=== PATIENT | female | born 1980 | race African-American/Black ===

== ENCOUNTER 2024-02-06 04:57 | Outpatient (CLI) | payer OTHER, SELFPAY ==
[2024-02-06 15:26] LABS: Abs Immature Grans 0.03 10^3/uL (0.0-0.06); Absolute Basophil Count 0.06 10^3/uL (0.0-0.2); Absolute Eosinophil Count 0.11 10^3/uL (0.0-0.7); Absolute Lymphocyte Count 2.96 10^3/uL (1.2-3.4); Absolute Monocyte Count 0.67 10^3/uL (0.1-0.8); Absolute Neutrophil Count 5.95 10^3/uL (1.2-6.7); Basophils % 0.6; Eosinophils % 1.1; HCT 34.3 % (36.0-46.0); HGB 10.5 g/dL (11.2-15.7); Immature Grans % 0.3; Lymphocytes % 30.3; MCH 22.9 pg (27.0-33.0); MCHC 30.6 % (32.0-36.0); MCV 75 fL (80-95); MPV 10.6 fL (8.0-11.0); Monocytes % 6.9; Neutrophils % 60.8; Platelet Count 395 10^3/uL (130-400); RBC 4.59 10^6/uL (3.93-5.22); WBC 9.78 10^3/uL (4.4-10.8)
[2024-02-06 15:49] LABS: Diff Comment RBC Morph Reviewed; Microcytosis 1+
[2024-02-06 16:07] LABS: D-Dimer 1799 ng/mlFEU (<500)
== END 2024-02-06 04:58 | disposition home or self-care (01) ==
LOC: LBO 04:57
PROVIDERS: PCP Nurse Practitioner Family; Visit Provider Physician Assistant
DX: R06.02 Shortness of breath (principal)
CPT/HCPCS: 36415; 85025; 85379

== ENCOUNTER → 2024-02-06 21:32 | Outpatient (CLI) | payer OTHER, SELFPAY ==
--- NOTE | 2024-02-06 15:15 | DI.RAD_ITS ---
Exam(s) XR CHEST 2V PA LATERAL EXAM: XR CHEST 2V PA LATERAL CLINICAL HISTORY: SOB, cough R06.02 TECHNIQUE: 2D digital imaging was performed. Two views. COMPARISON: No exams were available for comparison FINDINGS: Exam is limited by suboptimal penetration and poor pulmonary inflation, particularly on the lateral view. HEART: Enlarged Aorta: Not dilated. PULMONARY VASCULATURE: Normal. LUNGS: Mildly increased interstitial markings may indicate mild pulmonary edema. PLEURAL SPACE: No pleural effusion or pneumothorax. BONE:Unremarkable for age. Soft tissues: Unremarkable. IMPRESSION: Cardiomegaly. Mild increased interstitial markings could indicate CHF. DATA REPOSITORY: RADIATION DOSE DELIVERED:
== END ==
PROVIDERS: PCP Nurse Practitioner Family; Visit Provider Physician Assistant
DX: R06.02 Shortness of breath (principal); R05.8 Other specified cough; I51.7 Cardiomegaly; R91.8 Other nonspecific abnormal finding of lung field
CPT/HCPCS: 71046

== ENCOUNTER → 2024-02-07 09:54 | Outpatient (CLI) | payer OTHER, SELFPAY ==
--- NOTE | 2024-02-07 09:30 | DI.CT_ITS ---
Exam(s) CT CHEST PE CTA EXAM: CT CHEST PE CTA CLINICAL HISTORY: R06.02 SOB, elevated Ddimer. TECHNIQUE: Imaging Protocol: Axial CT angiography was performed with multi-slice acquisition and mu lti-planar and/or 3D reconstructions. CONTRAST MATERIAL: Intravenous: Omnipaque 350 contrast volume:100 mL COMPARISON: CR XR CHEST 2V PA LATERAL from 02/06/2024 FINDINGS: Tracheobronchial tree: Patent where visualized. Pulmonary parenchyma: There are multifocal ground-glass infiltrates most marked in the right upper lo be and the left lower lobe. No architectural distortion. Pulmonary Arteries: No evidence of filling defect to suggest pulmonary emboli. Mediastinum and Zuly: No dominant adenopathy or fluid collection. The esophagus is unremarkable. Visualized thyroid gland: Unremarkable. Pleura: No effusion or pneumothorax. Heart: Cardiomegaly. No coronary artery calcifications are seen. No pericardial effusion. Aorta: Thoracic aorta non-dilated. Upper abdomen: Cholelithiasis. No biliary ductal dilatation. The stone measures 2.3 cm. Soft tissues: Unremarkable. Bones: Within normal limits for the patient's age. IMPRESSION: 1. There is no evidence of a pulmonary embolism or thoracic aortic aneurysm. 2. Multifocal ground-glass infiltrates. This may represent an inflammatory/infectious process includ ing atypical infection such as COVID-19. 3. Cardiomegaly. 4. Cholelithiasis. No biliary ductal dilatation. RADIATION DOSE DELIVERED: Total DLP DATA REPOSITORY: All CT scans at this facility are submitted to the National Radiology Data Registry (NRDR) Dose Index Registry (DIR) with the [employer] (ACR). RADIATION OPTIMIZATION: All CT scans at this facility use at least one of these dose optimization te chniques: automated exposure control; mA and/or kV adjustment per patient size (includes targeted exa ms where dose is matched to clinical indication); or iterative reconstruction.
[2024-02-07 11:35] LABS: CREATININE 0.9 mg/dL (0.55-1.02); Estimated GFR 81.35 (mL/min/1.73m2)
[2024-02-07] MEDS: Omnipaque 350 MG/ML 100 ML BTL IJ (11:53)
--- NOTE | 2024-02-07 13:00 | DI.US_ITS ---
Exam(s) US EXTREMITY VENOUS BI EXAM: US EXTREMITY VENOUS BI CLINICAL HISTORY: elevated d dimer, shortness of breath, R06.02. TECHNIQUE: Bilateral lower extremity venous ultrasound performed using grayscale, color-flow, and sp ectral Doppler analysis. COMPARISON: No exams were available for comparison FINDINGS: The right common femoral, femoral and popliteal veins demonstrate normal compressibility, augmentatio n, and color Doppler. The posterior tibial and peroneal veins are patent. The saphenofemoral junctio n is unremarkable. There is no evidence of a Williamson's cyst. The soft tissues are unremarkable. The left common femoral, femoral and popliteal veins demonstrate normal compressibility, augmentation , and color Doppler. The posterior tibial and peroneal veins are patent. The saphenofemoral junction is unremarkable. There is no evidence of a Williamson's cyst. The soft tissues are unremarkable. IMPRESSION: 1. No evidence of a right lower extremity DVT. 2. No evidence of a left lower extremity DVT. DATA REPOSITORY:
[2024-02-11 13:44] LABS: TB Interpretation Negative (Negative)
== END ==
PROVIDERS: PCP Nurse Practitioner Family; Visit Provider Physician Assistant
DX: R06.02 Shortness of breath (principal); R79.1 Abnormal coagulation profile; R91.8 Other nonspecific abnormal finding of lung field; J18.9 Pneumonia, unspecified organism; I51.7 Cardiomegaly; K80.20 Calculus of gallbladder without cholecystitis without obstruction; Z11.1 Encounter for screening for respiratory tuberculosis; Z01.812 Encounter for preprocedural laboratory examination
CPT/HCPCS: 36415; 71275; 82565; 86480; 93970; J3490

== ENCOUNTER → 2024-02-11 01:44 | Outpatient (CLI) | payer OTHER, SELFPAY ==
--- NOTE | 2024-02-11 07:30 | DI.US_ITS ---
APPROVED REPORT EXAM: Comprehensive 2D, Doppler, and color-flow Echocardiogram Patient Location: Out-Patient [place] Technician: Jody Rice RDCS (AE) Indications: SOB. Murmur, pneumonia Other Information Study Quality: Adequate Conclusion Moderately dilated left ventricle. There is severe LV systolic dysfunction. EF is <25% with global hy pokinesis Normal right ventricular size and function The left atrium is moderately dilated. Right atrium is normal in sizw There are no structural valvular abnormalities. Trace aortic regurgitation. Mild mitral regurgitation Wall motion Left Ventricle Left ventricle is moderately dilated. Left ventricular systolic function is severely decreased. There is normal left ventricular wall thickness. There is global hypokinesis of the left ventricle. There is no ventricular septal defect visualized. LVEF is 21%. Right Ventricle Right ventricle is grossly normal in size. Right ventricular systolic function is grossly normal. Atria Left atrium is moderately dilated. The right atrium size is normal. The interatrial septum is intact with no evidence for an atrial septal defect. Aortic Valve The aortic valve is normal in structure. Aortic valve is trileaflet. There is no aortic valvular sten osis. Trace aortic regurgitation. Mitral Valve The mitral valve is normal in structure. No evidence of mitral valve stenosis. Mild mitral regurgita tion. Tricuspid Valve The tricuspid valve is normal in structure. There is no tricuspid valve stenosis. Trace to mild tricu spid regurgitation. Unable to assess PA pressure. Pulmonic Valve The pulmonary valve is normal in structure. There is no pulmonic valvular stenosis. Trace to mild pul cheo regurgitation. Great Vessels The aortic root is normal in size. The ascending aorta is normal. Aortic arch is normal in caliber. I VC is normal in size and collapses >50% with inspiration. Pericardium There is no pericardial effusion. 2D Dimensions IVSD d PLAX 0.87 cm F: 0.6-1.0 Ao Root d 2.97 cm F: 2.7 - 3.3 LVPW d PLAX 0.85 cm F: 0.6 - 1.0 Ao Asc Diam d 3.34 cm F: 2.3 - 3.1 LVID d PLAX 6.42 cm F: 3.8 - 5.2 LVDs 5.82 cm F: 2.2 - 3.5 LV EF Teichholz 20.1 % FS 9.36 % LV EDV (Teich) 210.0 mL LV ESV (Teich) 167.8 mL M-Mode TAPSE 2.00 cm (M/F) >1.7 Auto EF LV EDV A4C 183.9 mL LV EDV A2C 184.9 mL LV EDV BP 189.6 mL LV ESV A4C 147.0 mL LV ESV A2C 145.1 mL LV ESV BP 150.5 mL LVEF(%) A4C 20.0 % LVEF(%) A2C 21.6 % LVEF(%) BP 20.6 % LV SV A4C 36.8 ml LV SV A2C 39.9 ml LV SV BP 39.1 ml LV CO A4C 3.7 L/min LV CO A2C 3.9 L/min LV CO BP 3.8 L/min HR A4C 100.56 BPM HR A2C 98.10 BPM LV EDV Index (BP) LV Strain Long Pk Overal Avg (s) 5.77 LA Volume LA Length A4C 6.5 cm LA Length A2C 6.3 cm LA Area A4C s 28.17 cm2 LA Area A2C s 23.08 cm2 LA Vol A4C A-L 103.73 mL LA Vol A2C A-L 72.18 mL LA Vol Biplane A-L 88.1 mL LA Vol/BSA A4C A-L LA Vol/BSA A2C A-L LA Vol/BSA BP A-L 42.8 mL/m2 LA Vol A4C MOD 97.4 mL LA Vol A2C MOD 66.8 mL LA Vol BP MOD 81.9 mL RA Volume RA Area A4C 14.7 cm2 RA ESV A4C (A-L) 36.2mL RA Vol/BSA A4C A-L RA Length A4C 5.1 cm RA ESV A4C (MOD) 37.2mL LV Diastology MV E' lateral 0.053 (>0.1 m/s) Aortic Valve AoV Vmax 1.02 m/s LVOT Vmax 0.92 m/s AoV Peak Grad 4.2 mmHg LVOT Peak Grad 3.4 mmHg AoV Area (Vmax) 2.83 cm2 LVOT VTI 0.141 m AoV VTI 0.181 m LVOT Mean Grad 2.3 mmHg AoV Mean Marco. 0.77 m/s LVOT SV 44.39 mL AoV Mean Grad 2.6 mmHg LVOT Diam s 1.98 cm AoV Area (VTI) 2.45 cm2 Velocity Ratio 0.90 Mitral Valve MV Vmax TIPS 1.11 m/s MR Vmax 4.53 m/s MV Mean Grad 1.9 (<2mmHg) MR VTI 1.354 m MV VTI 0.229 m MR Peak Grad 81.9 mmHg MR Mean Grad 61.5 mmHg Pulmonary Valve PV Vmax 1.12 (0.5-1.5 m/s) RVOT Vmax 0.49 m/s PV Peak Grad 5.1 mmHg RVOT Peak Gr. 1.0 mmHg PV Mean Marco 0.84 m/s RVOT VTI 0.100 m PV Mean Grad 3.0 mmHg RVOT Mean Gr. 0.5 mmHg Tricuspid Valve TV S' 0.14 m/s
== END ==
PROVIDERS: PCP Nurse Practitioner Family; Visit Provider Physician Assistant
DX: R01.1 Cardiac murmur, unspecified (principal)
CPT/HCPCS: 93306

== ENCOUNTER 2024-02-15 07:09 | Outpatient (CLI) | payer OTHER, SELFPAY ==
--- NOTE | 2024-02-15 07:00 | RT.EKG_ITS ---
APPROVED REPORT Exam: Resting ECG Reason for Exam: EF 25% Patient Location: O HR:102 bpm ECG Measurements Heart Rate 102 AXIS OK 202 P 28 QRSd 98 QRS -10 QT 336 T 138 QTc 438 Conclusion Sinus tachycardia...rate> 99 Probable left atrial enlargement...P >50mS, <-0.10mV V1 Left ventricular hypertrophy with repolarization abnormalities
== END 2024-02-15 07:10 | disposition home or self-care (01) ==
LOC: DI.CM 07:10
PROVIDERS: PCP Nurse Practitioner Family; Visit Provider Nurse Practitioner Family
DX: R94.30 Abnormal result of cardiovascular function study, unspecified (principal)
CPT/HCPCS: 93010

== ENCOUNTER 2024-02-15 07:53 | Outpatient (CLI) | payer OTHER, SELFPAY ==
[2024-02-15 12:22] LABS: Abs Immature Grans 0.03 10^3/uL (0.0-0.06); Absolute Basophil Count 0.06 10^3/uL (0.0-0.2); Absolute Eosinophil Count 0.09 10^3/uL (0.0-0.7); Absolute Lymphocyte Count 1.59 10^3/uL (1.2-3.4); Absolute Monocyte Count 0.52 10^3/uL (0.1-0.8); Absolute Neutrophil Count 6.59 10^3/uL (1.2-6.7); Basophils % 0.7; HCT 37.3 % (36.0-46.0); HGB 11.3 g/dL (11.2-15.7); Immature Grans % 0.3; Lymphocytes % 17.9; MCH 22.8 pg (27.0-33.0); MCHC 30.3 % (32.0-36.0); MCV 75 fL (80-95); MPV 11.4 fL (8.0-11.0); Monocytes % 5.9; Neutrophils % 74.2; Platelet Count 420 10^3/uL (130-400); RBC 4.96 10^6/uL (3.93-5.22); RDW 17.5 % (11.7-14.6); RDW-SD 46.9 fL; Reticulocyte 1.2 % (0.5-2.4); WBC 8.88 10^3/uL (4.4-10.8)
[2024-02-15 12:45] LABS: Iron 44 ug/dL (50-170); Total Iron Binding Capacity 433 ug/dL (250-450)
[2024-02-15 12:55] LABS: Hemoglobin A1C 5.9 % (<5.7)
[2024-02-15 13:03] LABS: ALT 22 U/L (14-59); AST 15 U/L (15-37); Albumin 3.3 g/dL (3.4-5.0); Alkaline Phosphatase 101 U/L (46-116); Anion Gap 9.9 mmol/L (3-11); BUN 6 mg/dL (7-18); Bilirubin, Total 0.4 mg/dL (0.2-1.0); CO2 29.1 mmol/L (21.0-32.0); Calculated LDL 95 mg/dL (<100); Chloride 105 mmol/L (98-107); Cholesterol 157 mg/dL (<200); Estimated GFR 71.69 (mL/min/1.73m2); Ferritin 22 ng/mL (8-252); Folate 18.1 ng/mL (8.6-20.0); Glucose 96 mg/dL (74-106); HDL Cholesterol 47 mg/dL (40-60); Potassium 3.1 mmol/L (3.5-5.1); Sodium 144 mmol/L (136-145); TSH (W/Ref FT4) 3.39 uIU/mL (0.36-3.74); Total Protein 7.4 g/dL (6.4-8.2); Triglyceride 76 mg/dL (<150); Vitamin B12 413 pg/mL (193-986)
[2024-02-15 13:26] LABS: NT-proBNP 858 pg/mL (<300)
[2024-02-16 09:30] LABS: Hepatitis C Ab w Rflx HCV PCR Negative (Negative)
[2024-02-18 08:37] LABS: Transferrin 322 mg/dL (201-352)
== END 2024-02-15 07:54 | disposition home or self-care (01) ==
LOC: LOS 07:54
PROVIDERS: PCP Nurse Practitioner Family; Referring Provider Nurse Practitioner Family; Visit Provider Nurse Practitioner Family
DX: I50.20 Unspecified systolic (congestive) heart failure (principal); D64.9 Anemia, unspecified; Z11.59 Encounter for screening for other viral diseases
CPT/HCPCS: 36415; 80053; 80061; 86803; 82607; 82728; 82746; 83036; 83540; 83550; 83880; 84443; 84466; 85025; 85045

== ENCOUNTER → 2024-02-18 00:47 | Outpatient (CLI) | payer OTHER, SELFPAY ==
--- NOTE | 2024-02-18 07:30 | DI.NM_ITS ---
APPROVED REPORT Exam: Pharmacologic Patient Location: Out-Patient Room/Bed: Stress Nurse: Linsey Ayon RN Ordering Provider:MARIZOL RICHARDSYoko, Contact Number: [phone] BMI: 43.07 Baseline Rhythm: Sinus Tachycardia Comment: PVCs Indications: new heart failure Medical History Medical History: HF EF21%, HTN, anemia, obesity Cardiac Medications: Losartan, furosemide, metoprolol succ Allergies: Doxycycline Cardiac Risk Factors: Family Hx, HTN, Obesity, former smoker Previous Cardiac Procedures: None Pretest Chest Pain Characteristics: None Exercise History: Physically active Physical Disabilities: None Lung Sounds: Clear to auscultation Heart Sounds: Regular, Tachycardia Stress Test Details Test: Pharmacologic stress was paired with low level exercise. Nuclear Acquisition: Rest Tc-99m/Stress Tc-99m 1 day Rest Isotope: Tc-99m Sestamibi. Dose: 12 Date: 02/18/2024 Injection Time: 0915 Stress Isotope: Tc-99m Sestamibi. Dose: 36 Date: 02/18/2024 Injection Time: 1112 HR Resting HR Supine: 102 bpm Max Heart Rate (APMHR): 177 bpm Resting HR Standin bpm Target HR (85% APMHR): 150 bpm Max HR Achieved: 136 bpm % of APMHR: 77 Recovery HR: 103 bpm BP Resting BP Supine: 130/90 mmHg Resting BP Standin/98 mmHg Max BP: 144/74 mmHg Recovery BP: 134/80 mmHg ECG Resting ECG: Sinus Tachycardia Ectopy: PVCs Stress ECG: Sinus Tachycardia ST Change: No significant ST segment changes noted Arrhythmia: VPC's Recovery ECG: Sinus Tachycardia Recovery ST Change: No significant ST segment changes noted Recovery Arrhythmia: VPC Clinical Rate Pressure Product: 63085 Stress ECG Conclusion 1. Resting EKG showed nondiagnostic ST abnormalities 2. Patient underwent testing using pharmacologic stress with regadenosan 3. Peak heart rate was 77% of predicted for age 4. The electrocardiographic portion of the test was nondiagnostic 5. See MPI report Stress Test Summary STAGE HR BP SpO2 Symptoms NOTES Supine 102 130/90 98 Standing 103 128/98 98 1 min post Lexiscan injection 136 144/74 94 mild SOB 3 min post Lexiscan injection 115 130/98 99 SOB resolved 6 min post Lexiscan injection 103 134/80 98 Pharmacological test was paired with low level exercise, patient took metoprolol succ as ordered. Exe rcise at 1.4MPH 0% grade, lexiscan administered at 2:09 and exercise stopped due to artifact and inab ility to read 12 lead. Experienced mild SOB that resolved within 3 minutes after lexiscan administrat ion. MPI Conclusion Myocardial perfusion is normal. There is no ischemia or evidence of prior infarction EF 19% with global hypokinesis Radiologist Interpretation Radiologist agrees with Manager Strategic Development's Interpretation. Radiologist Interpretation by: Tim Velazquez MD Interpretation Date/Time: 02/18/2024 17:53:31
[2024-02-18] MEDS: Regadenoson 0.4 MG/5 ML SYR IVP (10:50)
== END ==
PROVIDERS: PCP Nurse Practitioner Family; Visit Provider Nurse Practitioner Family
DX: I50.20 Unspecified systolic (congestive) heart failure (principal)
CPT/HCPCS: 78452; 93017; J2785

== ENCOUNTER 2024-02-23 11:19 | Outpatient (REF) | payer OTHER, SELFPAY ==
[2024-02-23 15:34] LABS: Anion Gap 8.3 mmol/L (3-11); BUN 12 mg/dL (7-18); CO2 29.7 mmol/L (21.0-32.0); CREATININE 0.9 mg/dL (0.55-1.02); Calcium 8.7 mg/dL (8.5-10.1); Chloride 106 mmol/L (98-107); Estimated GFR 81.35 (mL/min/1.73m2); Glucose 91 mg/dL (74-106); Magnesium 2.1 mg/dL (1.8-2.4); NT-proBNP 1843 pg/mL (<300); PHOSPHORUS 4.3 mg/dL (2.6-4.7); Potassium 3.7 mmol/L (3.5-5.1); Sodium 144 mmol/L (136-145)
== END 2024-02-23 11:20 | disposition home or self-care (01) ==
LOC: LBN 11:19
PROVIDERS: PCP Nurse Practitioner Family; Visit Provider Nurse Practitioner Family
DX: I50.20 Unspecified systolic (congestive) heart failure (principal); R05.1 Acute cough; I10 Essential (primary) hypertension
CPT/HCPCS: 80048; 83735; 83880; 84100

== ENCOUNTER → 2024-02-23 11:39 | Outpatient (REF) | payer OTHER, SELFPAY ==
--- NOTE | 2024-02-23 11:30 | DI.RAD_ITS ---
Exam(s) XR CHEST 2V PA LATERAL EXAM: XR CHEST 2V PA LATERAL CLINICAL HISTORY: evaluate pathology for sob TECHNIQUE: 2D digital imaging was performed of the chest. Two images were obtained. PA and lateral views were obtained. COMPARISON: CR XR CHEST 2V PA LATERAL from 02/06/2024 FINDINGS: MEDIASTINUM: Normal. HEART: Stable cardiomegaly. PULMONARY VASCULATURE: Normal. LUNGS: There are increased lung markings seen right at the midportion of the right hemidiaphragm rais ing the question of a developing pneumonia. PLEURAL SPACE: No pleural effusion or pneumothorax. BONE:Within normal limits for the patient's age. OTHER FINDINGS:Normal. IMPRESSION: Question of a right basilar infiltrate. DATA REPOSITORY: RADIATION DOSE DELIVERED:
--- NOTE | 2024-02-23 12:17 | DI.VRAD_ITS ---
PROCEDURE INFORMATION: Exam: XR Chest Exam date and time: 02/23/2024 11:46 AM Age: 43 years old Clinical indication: Cough TECHNIQUE: Imaging protocol: Radiologic exam of the chest. Views: 2 views. COMPARISON: CT CHEST PE CTA 02/07/2024 11:46 AM FINDINGS: Lungs: Unremarkable. No consolidation. Pleural spaces: Unremarkable. No pleural effusion. No pneumothorax. Heart/Mediastinum: Unremarkable. No cardiomegaly. Bones/joints: Unremarkable. IMPRESSION: No acute findings. Dictated and Authenticated by: Julia Nicole MD. Ordering:ROSSANA Tucker MD
== END ==
LOC: DI 11:39
PROVIDERS: PCP Nurse Practitioner Family; Visit Provider Nurse Practitioner Family
DX: I50.20 Unspecified systolic (congestive) heart failure (principal)
CPT/HCPCS: 71046

== ENCOUNTER 2024-02-26 14:42 | Outpatient (CLI) | payer OTHER, SELFPAY ==
--- NOTE | 2024-02-26 14:30 | RT.EKG_ITS ---
APPROVED REPORT Exam: Resting ECG Reason for Exam: HF Patient Location: O HR:109 bpm ECG Measurements Heart Rate 109 AXIS WI 159 P 41 QRSd 89 QRS -14 QT 380 T 102 QTc 512 Conclusion Sinus tachycardia...rate> 99 Probable left atrial enlargement...P >50mS, <-0.10mV V1 Left ventricular hypertrophy...multiple voltage criteria Borderline T abnormalities, lateral leads...T flat/neg, I aVL V5 V6 Prolonged QT interval...QTc >510mS Baseline wander in lead(s) V1,V2
== END 2024-02-26 14:43 | disposition home or self-care (01) ==
LOC: DI.CARD 14:46
PROVIDERS: PCP Nurse Practitioner Family; Visit Provider Internal Medicine Cardiovascular Disease
DX: I50.20 Unspecified systolic (congestive) heart failure (principal)
CPT/HCPCS: 93010

== ENCOUNTER → 2024-04-14 02:06 | Outpatient (CLI) | payer OTHER, SELFPAY ==
--- NOTE | 2024-04-14 12:45 | DI.MAMMO_ITS ---
Exam(s) MAMMO SCREENING EXAM: MAMMO SCREENING CLINICAL HISTORY: screening, Z12.39 TECHNIQUE: Mammograms were interpreted according to the usual protocol including computer analysis w ith CAD system, tomosynthesis and C-view imaging. COMPARISON: No exams were available for comparison. The patient has outside examinations which are not available for comparison. FINDINGS: The breasts are composed of scattered fibroglandular densities, Breast Density category B. No suspicious masses or suspicious microcalcifications are seen. There is a biopsy marker clip in th e upper outer quadrant of the left breast. No skin thickening or abnormal axillary lymph nodes are seen. IMPRESSION: BI-RADS Category 1, Negative mammogram Yearly screening mammography is recommended. If the patient's prior examinations become available, an addendum will be issued. Breast Density - Category B, scattered fibroglandular densities. A negative radiographic report should not delay biopsy if a dominant or clinically suspicious mass is present. Up to ten percent of cancers are not identified on mammography. A negative report may reinforce clinical impression. Adenosis and dense breasts may obscure an underlying neoplasm. False positive reports average 6 to 10%. Patient will receive a letter notifying them of these results.
== END ==
PROVIDERS: PCP Nurse Practitioner Family; Visit Provider Nurse Practitioner Family
DX: Z12.31 Encounter for screening mammogram for malignant neoplasm of breast (principal)
CPT/HCPCS: 77063; 77067

== ENCOUNTER 2024-04-29 13:28 | Outpatient (REF) | payer OTHER, SELFPAY ==
--- NOTE | 2024-04-29 13:10 | PAPFT_PTH ---
PATIENT: Jacinta Rao LOC: [facility] U#:[id number] AGE/SX: 43/F ROOM: RE04/29/[address]: Jaz Kc NP : 1980 BED: DIS: 04/29/2024 SPEC #: [id number] RECD: 04/29/24 18:12 STATUS: [place] REQ #: [id number] KENDY: 04/29/24 13:[address]: De JARVIS,Jaz DEPT: [facility] Cytology RECD BY: Rosario Connor ENTERED: 04/29/24 18:12 SP TYPE: PAPFT OTHR DR: Justa Taveras, FRANCHESCA Tissues: 1 - CX/ENDOCX FOR PAP SMEARS Procedures: PAP THIN PREP/UVM Screening HPV DNA PROBE Comments: [id number]
== END 2024-04-29 13:29 | disposition home or self-care (01) ==
LOC: LBN 13:28
PROVIDERS: PCP Nurse Practitioner Family; Visit Provider Nurse Practitioner Women's Health
DX: Z12.4 Encounter for screening for malignant neoplasm of cervix (principal); Z11.51 Encounter for screening for human papillomavirus (HPV); R87.810 Cervical high risk human papillomavirus (HPV) DNA test positive
CPT/HCPCS: 88142; 87624

== ENCOUNTER 2024-06-11 13:21 | Outpatient (RCR) | payer OTHER, SELFPAY ==
--- NOTE | 2024-05-30 14:28 | NUR.NOTE ---
Nursing Note: Pt. presented for CR session this morning. Pt. denied any chest pain/pressure, SOB, pain, etc. Patient noted she had a cardiac MRI which indicated that she needed an ICD placed. [facility]. Patient noted to have high resting HR's (mid to high 90's-129) all 5 sessions thus far which continue to trend upward. Also noted the patient's HR's were in the high 130's to 140's while exercising. VM left for [facility] cardiology triage nurse. Pt. tolerated exercise session well. Pt. left ambulatory in no apparent distress. 3
== END 2024-06-11 23:59 | disposition home or self-care (01) ==
LOC: CR 13:21
PROVIDERS: PCP Nurse Practitioner Family; Visit Provider Internal Medicine Cardiovascular Disease
DX: I50.20 Unspecified systolic (congestive) heart failure (principal)
CPT/HCPCS: S9472

== ENCOUNTER 2024-06-20 13:20 | Outpatient (RCR) | payer OTHER, SELFPAY | END 2024-07-12 23:59 | disposition home or self-care (01) | LOC: CR 13:20 | PROVIDERS: PCP Nurse Practitioner Family; Visit Provider Internal Medicine Cardiovascular Disease | DX: I50.22 Chronic systolic (congestive) heart failure (principal); Z51.89 Encounter for other specified aftercare | CPT/HCPCS: S9472 ==

== ENCOUNTER 2024-06-27 01:54 | Outpatient (CLI) | payer OTHER, SELFPAY | END 2024-06-27 01:55 | disposition home or self-care (01) | LOC: DS 01:54 | PROVIDERS: PCP Nurse Practitioner Family; Visit Provider Dietitian, Registered | DX: Z71.3 Dietary counseling and surveillance (principal) | CPT/HCPCS: 97802 ==

== ENCOUNTER 2024-06-27 20:40 | Emergency (ER) | payer OTHER, SELFPAY ==
[2024-06-27] VITALS (23 sets, daily range): BP systolic 141–170; BP diastolic 93–115; PULSE 91–106; RESP 11–37; TEMP 36.6; O2SAT 94–99
--- OUTSIDE RECORDS SUMMARY | 2024-06-27 20:44 | XMS_ITS | Encounter Summary ---
Author Organization [facility] Address [address] [place] [address] Care Team Providers Care Wrecker Operator Name Role Phone Unavailable Primary Care Provider Unavailabl e Encounter Details Date Type Department Care Team (Late st Contact Info) Description 04/30/2024 Lab Requisition [facility] Pathology & Laboratory Medicine - [facility] [address] [place] [address] Jaz Kc, MANAGER FUNCTIONAL [address] [address] Encounter for other general examination Social History Tobacco Use Types Packs/Day Years Used Date Smoking Tobacco: Never Assessed Sex and Gender Information Value Date Recorded Sex Assigned at Not on file Gender Identity Not on file Sexual Orientation Not on file documented as of this encounter Plan of Treatment Not on file documented as of this encounter Procedures Procedure Name Priority Date/Time Associated Diagnosis Comments PAP TEST Today 04/29/2024 13:10 EDT Encounter for other general examination HPV DNA DETECTION WITH GENOTYPING, PCR Today 04/29/2024 13:10 EDT Encounter for other general examination documented in this encounter Results * (ABNORMAL) HUMAN PAPILLOMAVIRUS (HPV) DETECTION-HIGH RISK TYPES (04/29/2024 13:10 EDT) HPV other High Risk types, PCR Positive( A) Negative 05/06/2024 15:20 EDT [facility] Comment:E6 OR E7 mRNA from o ne or more types of HPV types 16,18,31,33,35,39,45,51,52,56,58,59,66, and 68 is detected by oven equipment repairer mediated amplification. High and intermediate risk HPV types are associated with most squamous intraepithelial lesions and cervical cancers. Pap Test CERVIX UTERI STRUCTURE / Unknown 04/29/2024 13:10 EDT 05/05/2024 13:24 EDT [place] [facility] MICROBIOLOGY - GE NERAL ORDERABLES [facility] [address] [place] [address] * PAP TEST (04/29/2024 13:10 EDT) Specimens A. Cervix and/or Endocervix , ThinPrep Imaging System with Manual Evaluation 05/06/2024 15:20 EDT [facility] Specimen Adequacy Satisfactory for Evaluation - transformation zone component present 05/06/2024 15:20 EDT [facility] General Categorization Negative for intraepithelial lesion or malignancy 05/06/2024 15:20 T [facility] Descriptive Diagnosis 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 05/06/2024 15:20 EDT [facility] Attestation . 05/06/2024 15:20 T [facility] at 1520 Clinical History See below 05/06/20 15:20 EDT [facility] HPV The result for the Human Papillomavirus (HPV) Detection-High Risk Types is Positive . E6 OR E7 mRNA from one or more types of HPV types 16,18,31,33,35,39 ,45,51,52,56,58,5 9,66, and 68 is detected by oven equipment repairer mediated amplification. High and intermediate risk HPV types are associated with most squamous intraepithelial lesions and cervical cancers. Testing was performed on specimen [id number] and was resulted on 05/06/2024 1520 EDT by THANH, LAB INSTRUMENT RESULTS IN 05/06/2024 15:20 EDT [facility] Performing Lab [facility] 05/06/2024 15:20 EDT [facility] Scanned Images 05/06/2024 15:20 EDT [facility] Pap Test CERVIX UTERI STRUCTURE / Unknown 04/29/2024 13:10 EDT 04/30/2024 12:05 EDT Jaz Kc MANAGER FUNCTIONAL PATHOLOGY ORDERAB LES [facility] [address] [place] [address] documented in this encounter Visit Diagnoses Diagnosis Encounter for other general examination documented in this encounter
--- OUTSIDE RECORDS SUMMARY | 2024-06-27 20:44 | XMS_ITS | Clinical Summary ---
Author Organization [facility] Address [address] [place] [address] Care Team Providers Care Charge Histotechnologist Name Role Phone Unavailable Primary Care Provider Unavailabl e Encounters Date Type Department Care Team Description 04/30/2024 Lab Requisition [facility] Pathology & Laboratory [address] [address] Jaz Kc APRN Encounter for other general examination 04/30/2024 Lab Requisition [facility] Pathology & Laboratory [address] [address] Jaz Kc APRN Encounter for other general examination from Last 3 Months Social History Tobacco Use Types Packs/Day Years Used Date Smoking Tobacco: Never Assessed Sex and Gender Information Value Date Recorded Sex Assigned at Not on file Gender Identity Not on file Sexual Orientation Not on file Plan of Treatment Health Maintenance Due Date Last Done Comments Hepatitis B Vaccine (1 of 3 - 19+ 3-dose series) 09/24 COVID-19 Vaccine (2022-24 season) 2023 Hepatitis C Screen Completed 02/15/2024 Procedures Procedure Name Priority Date/Time Associated Diagnosis Comments PAP TEST Today 04/29/2024 13:10 EDT Encounter for other general examination HPV DNA DETECTION WITH GENOTYPING, PCR Today 04/29/2024 13:10 EDT Encounter for other general examination HEPATITIS C AB W REFLEX TO HCV RNA BY PCR Routine 02/15/2024 8:14 EDT from Last 3 Months or Most Recently Relevant to Health Maintenance Results * PAP TEST (04/29/2024 13:10 EDT) Specimens A. Cervix and/or Endocervix , ThinPrep Imaging System with Manual Evaluation 05/06/2024 15:20 EDT [facility] Specimen Adequacy Satisfactory for Evaluation - transformation zone component present 05/06/2024 15:20 EDT [facility] General Categorization Negative for intraepithelial lesion or malignancy 05/06/2024 15:20 T [facility] Descriptive Diagnosis 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 05/06/2024 15:20 T [facility] Attestation . 05/06/2024 15:20 T [facility] at 1520 Clinical History See below 05/06/20 15:20 T [facility] HPV The result for the Human Papillomavirus (HPV) Detection-High Risk Types is Positive . E6 OR E7 mRNA from one or more types of HPV types 16,18,31,33,35,39 ,45,51,52,56,58,5 9,66, and 68 is detected by mechanical systems engineer mediated amplification. High and intermediate risk HPV types are associated with most squamous intraepithelial lesions and cervical cancers. Testing was performed on specimen [id number] and was resulted on 05/06/2024 1520 EDT by THANH, LAB INSTRUMENT RESULTS IN 05/06/2024 15:20 EDT [facility] Performing Lab [facility] 05/06/2024 15:20 EDT [facility] Scanned Images 05/06/2024 15:20 T [facility] Pap Test CERVIX UTERI STRUCTURE / Unknown 04/29/2024 13:10 EDT 04/30/2024 12:05 EDT Jaz Kc APRN PATHOLOGY ORDERAB LES [facility] [address] [place] [address] * (ABNORMAL) HUMAN PAPILLOMAVIRUS (HPV) DETECTION-HIGH RISK TYPES (04/29/2024 13:10 EDT) HPV other High Risk types, PCR Positive( A) Negative 05/06/2024 15:20 EDT [facility] Comment:E6 OR E7 mRNA from o ne or more types of HPV types 16,18,31,33,35,39,45,51,52,56,58,59,66, and 68 is detected by mechanical systems engineer mediated amplification. High and intermediate risk HPV types are associated with most squamous intraepithelial lesions and cervical cancers. Pap Test CERVIX UTERI STRUCTURE / Unknown 04/29/2024 13:10 EDT 05/05/2024 13:24 EDT Jaz Kc HYDROGEN CELL TENDER MICROBIOLOGY - GE NERAL ORDERABLES [facility] [address] [place] [address] * HEPATITIS C AB W REFLEX TO HCV RNA BY PCR (02/15/2024 8:14 EDT) Hep C Antibody Negative Negative 02/16/2024 9:25 EDT [facility] Blood VENOUS BLOOD / Unknown 02/15/2024 8:14 EDT 02/15/2024 17:02 EDT Provider Outr Resulting Lab CHEMISTRY & BLOOD GAS ORDERABLES [facility] [address] [place] [address] from Last 3 Months or Most Recently Relevant to Health Maintenance
--- OUTSIDE RECORDS SUMMARY | 2024-06-27 20:44 | XMS_ITS | Encounter Summary ---
Author Organization [facility] Address [address] [place] [address] Care Team Providers Care Plug Drill Operator Name Role Phone Unavailable Primary Care Provider Unavailabl e Encounter Details Date Type Department Care Team (Late st Contact Info) Description 02/08/2024 Lab Requisition [facility] Pathology & Laboratory Medicine - [facility] [address] [place] [address] Outr Resulting Lab, Provider Social History Tobacco Use Types Packs/Day Years Used Date Smoking Tobacco: Never Assessed Sex and Gender Information Value Date Recorded Sex Assigned at Not on file Gender Identity Not on file Sexual Orientation Not on file documented as of this encounter Plan of Treatment Not on file documented as of this encounter Procedures Procedure Name Priority Date/Time Associated Diagnosis Comments QUANTIFERON MITOGEN (PERFORMABLE) Today 02/07/2024 13:18 EDT QUANTIFERON TB2 (PERFORMABLE) Today 02/07/2024 13:18 EDT QUANTIFERON TB1 (PERFORMABLE) Today 02/07/2024 13:18 EDT QUANTIFERON NIL (PERFORMABLE) Today 02/07/2024 13:18 EDT QUANTIFERON INTERPRETATION (PERFORMABLE) Today 02/07/2024 13:18 EDT QUANTIFERON TB GOLD PLUS Routine 02/07/2024 13:18 EDT documented in this encounter Results * QUANTIFERON INTERPRETATION (PERFORMABLE) (02/07/2024 13:18 EDT) Quantiferon Interpretation Negative Negative 02/11/2024 13:40 EDT [facility] Comment:No interferon-gamma response to M. tuberculosis antigens was detected. ??Infection with M. tuberculosis is unlikely. A single negative result does not exclude infection with M. tuberculosis. ??In patients at high risk for M. tuberculosis infection, a second test should be considered. TB1 Ag minus Nil 0.00 IU/ml 02/11/20 13:40 EDT [facility] TB2 Ag minus Nil 0.00 IU/mL 02/11/20 13:40 EDT [facility] Blood VENOUS BLOOD / Unknown 02/07/2024 13:18 EDT 02/11/2024 13:39 EDT Provider Outr Resulting Lab IMMUNOLOGY A ND SEROLOGY ORDERABLES Performing Organization Address [facility] Co de Phone Number [facility] [address] [place] [address] * QUANTIFERON MITOGEN (PERFORMABLE) (02/07/2024 13:18 EDT) Blood VENOUS BLOOD / Unknown 02/07/2024 13:18 EDT 02/08/2024 17:22 EDT Provider Outr Resulting Lab IMMUNOLOGY A ND SEROLOGY ORDERABLES Performing Organization Address [facility] de Phone Number [facility] [address] [place] [address] * QUANTIFERON TB2 (PERFORMABLE) (02/07/2024 13:18 EDT) Blood VENOUS BLOOD / Unknown 02/07/2024 13:18 EDT 02/08/2024 17:22 EDT Provider Outr Resulting Lab IMMUNOLOGY A ND SEROLOGY ORDERABLES Performing Organization Address City/[facility] Co de Phone Number [facility] [address] [place] [address] * QUANTIFERON TB1 (PERFORMABLE) (02/07/2024 13:18 EDT) Blood VENOUS BLOOD / Unknown 02/07/2024 13:18 EDT 02/08/2024 17:22 EDT Provider Outr Resulting Lab IMMUNOLOGY A ND SEROLOGY ORDERABLES Performing Organization Address [facility] Co de Phone Number [facility] [address] [place] [address] * QUANTIFERON NIL (PERFORMABLE) (02/07/2024 13:18 EDT) Blood VENOUS BLOOD / Unknown 02/07/2024 13:18 EDT 02/08/2024 17:22 EDT Provider Outr Resulting Lab IMMUNOLOGY A ND SEROLOGY ORDERABLES Performing Organization Address [facility] Co de Phone Number [facility] [address] [place] [address] documented in this encounter Visit Diagnoses Not on filedocumented in this encounter
--- OUTSIDE RECORDS SUMMARY | 2024-06-27 20:44 | XMS_ITS | Referral Summary ---
Author Organization [facility] Address [address] [place] [address] Care Team Providers Care Bark Peeler Name Role Phone Unavailable Primary Care Provider Unavailabl e Encounters Date Type Department Care Team Description 04/30/2024 Lab Requisition [facility] Pathology & Laboratory [address] [address] Jaz Kc APRN Encounter for other general examination 04/30/2024 Lab Requisition [facility] Pathology & Laboratory [address] [address] Jaz Kc APRN Encounter for other general examination from Last 3 Months Social History Tobacco Use Types Packs/Day Years Used Date Smoking Tobacco: Never Assessed Sex and Gender Information Value Date Recorded Sex Assigned at Not on file Gender Identity Not on file Sexual Orientation Not on file Plan of Treatment Not on file Procedures Procedure Name Priority Date/Time Associated Diagnosis [...] System with Manual Evaluation 05/06/2024 15:20 EDT [facility] Specimen Adequacy Satisfactory for Evaluation - transformation zone component present 05/06/2024 15:20 EDT [facility] General Categorization Negative for intraepithelial lesion or malignancy 05/06/2024 15:20 EDT [facility] Descriptive Diagnosis 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 05/06/2024 15:20 EDT [facility] Attestation . 05/06/2024 15:20 EDT [facility] at 1520 Clinical History See below 05/06/20 15:20 EDT [facility] HPV The result for the Human Papillomavirus (HPV) Detection-High Risk Types is Positive . E6 OR E7 mRNA from one or more types of HPV types 16,18,31,33,35,39 ,45,51,52,56,58,5 9,66, and 68 is detected by tack coverer mediated amplification. High and intermediate risk HPV types are associated with most squamous intraepithelial lesions and cervical cancers. Testing was performed on specimen [id number] and was resulted on 05/06/2024 1520 EDT by THANH, LAB INSTRUMENT RESULTS IN 05/06/2024 15:20 EDT [facility] Performing Lab [facility] 05/06/2024 15:20 T [facility] Scanned Images 05/06/2024 15:20 T [facility] Pap Test CERVIX UTERI STRUCTURE / Unknown 04/29/2024 13:10 EDT 04/30/2024 12:05 EDT Jaz Kc APRN PATHOLOGY ORDERAB LES [facility] [address] [place] [address] * (ABNORMAL) HUMAN PAPILLOMAVIRUS (HPV) DETECTION-HIGH RISK TYPES (04/29/2024 13:10 EDT) HPV other High Risk types, PCR Positive( A) Negative 05/06/2024 15:20 EDT [facility] Comment:E6 OR E7 mRNA from o ne or more types of HPV types 16,18,31,33,35,39,45,51,52,56,58,59,66, and 68 is detected by tack coverer mediated amplification. High and intermediate risk HPV types are associated with most squamous intraepithelial lesions and cervical cancers. Pap Test CERVIX UTERI STRUCTURE / Unknown 04/29/2024 13:10 EDT 05/05/2024 13:24 EDT Jaz Kc APRN MICROBIOLOGY - GE NERAL ORDERABLES [facility] [address] [place] [address] * HEPATITIS C AB W REFLEX TO HCV RNA BY PCR (02/15/2024 8:14 EDT) Hep C Antibody Negative Negative 02/16/2024 9:25 EDT [facility] Blood VENOUS BLOOD / Unknown 02/15/2024 8:14 EDT 02/15/2024 17:02 EDT Provider Outr Resulting Lab CHEMISTRY & BLOOD GAS ORDERABLES [facility] [address] [place] [address] from Last 3 Months or Most Recently Relevant to Health Maintenance
--- OUTSIDE RECORDS SUMMARY | 2024-06-27 20:44 | XMS_ITS | Encounter Summary ---
Author Organization [facility] Address [address] [place] [address] Care Team Providers Care Agate Setter Name Role Phone Unavailable Primary Care Provider Unavailabl e Encounter Details Date Type Department Care Team (Late st Contact Info) Description 02/15/2024 Lab Requisition [facility] Pathology & Laboratory Medicine - [facility] [address] [place], [place] [address] Outr Resulting Lab, Provider Social History Tobacco [...] Procedure Name Priority Date/Time Associated Diagnosis Comments HEPATITIS C AB W REFLEX TO HCV RNA BY PCR Routine 02/15/2024 8:14 EDT TRANSFERRIN Routine 02/15/2024 8:14 EDT documented in this encounter Results * HEPATITIS C AB W REFLEX TO HCV RNA BY PCR (02/15/2024 8:14 EDT) Hep C Antibody Negative Negative 02/16/2024 9:25 EDT [facility] Blood VENOUS BLOOD / Unknown 02/15/2024 8:14 EDT 02/15/2024 17:02 EDT Provider Outr Resulting Lab CHEMISTRY & BLOOD GAS ORDERABLES [facility] [address] [place], [place] [address] * TRANSFERRIN (02/15/2024 8:14 EDT) Transferrin 322 201 - 352 mg/dL 02/18/2024 8:31 EDT [facility] Blood VENOUS BLOOD / Unknown 02/15/2024 8:14 EDT 02/15/2024 17:02 EDT Provider Outr Resulting Lab CHEMISTRY & BLOOD GAS ORDERABLES [facility] [address] [place] [address] documented in this encounter Visit Diagnoses Not on filedocumented in this encounter
--- OUTSIDE RECORDS SUMMARY | 2024-06-27 20:44 | XMS_ITS | Encounter Summary ---
Author Organization [facility] Address [address] [place] [address] Care Team Providers Care Meter And Regulator Shop Supervisor Name Role Phone Unavailable Primary Care Provider Unavailabl e Encounter Details Date Type Department Care Team (Late st Contact Info) Description 04/30/2024 Lab Requisition [facility] Pathology & Laboratory Medicine - [facility] [address] [place] [address] Jaz Kc, [employer] [address] [place] [id number] Encounter for other general examination Social History Tobacco Use Types Packs/Day Years Used Date Smoking Tobacco: Never Assessed Sex and Gender Information Value Date Recorded Sex Assigned at Not on file Gender Identity Not on file Sexual Orientation Not on file documented as of this encounter Plan of Treatment Scheduled Orders Name Type Priority Associated Diagnoses Orde r Schedule PAP TEST Pathology Today Encounter for other general examination Ordered: 04/30/2024 documented as of this encounter Visit Diagnoses Diagnosis Encounter for other general examination documented in this encounter
[2024-06-27 21:26] LABS: Bilirubin Negative (Negative); Blood Negative (Negative); Clarity Clear (Clear); Glucose >=1000 mg/dL (Negative); Ketones Negative (Negative); Leukocyte Esterase Trace (Negative); Nitrite Negative (Negative); Urobilinogen 0.2 mg/dL (Up to 0.2)
[2024-06-27 21:33] LABS: Bacteria Rare HPF (Negative); C & S Indicated? No; Casts Negative LPF (Negative); Crystals Negative HPF (Negative); Epithelial Cells Few HPF (Negative); Mucus Negative (Negative); Other Cells Rare Transitional (Negative); RBC Negative HPF (0-2)
--- NOTE | 2024-06-27 21:45 | DI.CT_ITS ---
Exam(s) CT RENAL COLIC WO EXAM: CT RENAL COLIC WO CLINICAL HISTORY: flank pain. TECHNIQUE: Imaging Protocol: Axial computed tomography images with coronal and sagittal reformatted images were created and reviewed. COMPARISON: CT CT CHEST PE CTA from 02/07/2024 FINDINGS: ABDOMEN: Lung Bases: Cardiomegaly. Atelectasis in the lung bases. Liver: Normal density. No measurable mass. Gallbladder and biliary tract: Cholelithiasis. No biliary ductal dilatation. Pancreas: Normal density, no abnormal calcifications or inflammatory process. Spleen: Normal. Kidneys: Normal size, contour and axis.Right nephrolithiasis. There is a 2 mm calcification in the r ight pelvis within or adjacent to the right distal ureter (series 3, image 111). No resultant hydron ephrosis is seen. No masses seen. Adrenal glands: No mass is seen. Lymph nodes: Within normal limits. Abdominal Aorta: Abdominal portion non-dilated. PELVIS: Bladder:Symmetric distention, no gross wall thickening. Bowel: There are few diverticula in the colon but no evidence of acute diverticulitis. No evidence o f bowel obstruction or bowel wall thickening. Appendix is unremarkable. Peritoneal cavity: No ascites, collection or mesenteric inflammatory response. No free air. Reproductive organs: Unremarkable as visualized. Bones: Within normal limits. Soft Tissues: Within normal limits. IMPRESSION: 1. There is a 2 mm calcification in the right pelvis adjacent to or within the ureter. No resultant hydronephrosis is seen. This may be a phlebolith versus a distal ureteral stone. 2. Right nephrolithiasis. 3. Cardiomegaly. 4. Cholelithiasis. No biliary ductal dilatation. 5. Colonic diverticulosis without evidence of a diverticulitis. RADIATION DOSE DELIVERED: Total DLP DATA REPOSITORY: All CT scans at this facility are submitted to the National Radiology Data Registry (NRDR) Dose Index Registry (DIR) with the [employer] (ACR). RADIATION OPTIMIZATION: All CT scans at this facility use at least one of these dose optimization te chniques: automated exposure control; mA and/or kV adjustment per patient size (includes targeted exa ms where dose is matched to clinical indication); or iterative reconstruction.
[2024-06-27 21:56] LABS: Abs Immature Grans 0.04 10^3/uL (0.0-0.06); Absolute Basophil Count 0.05 10^3/uL (0.0-0.2); Absolute Eosinophil Count 0.12 10^3/uL (0.0-0.7); Absolute Lymphocyte Count 2.27 10^3/uL (1.2-3.4); Absolute Monocyte Count 0.86 10^3/uL (0.1-0.8); Absolute Neutrophil Count 10.02 10^3/uL (1.2-6.7); Basophils % 0.4 %; Eosinophils % 0.9 %; HCT 41.6 % (36.0-46.0); HGB 12.8 g/dL (11.2-15.7); Immature Grans % 0.3 %; MCH 23.9 pg (27.0-33.0); MCHC 30.8 % (32.0-36.0); MCV 78 fL (80-95); MPV 10.8 fL (8.0-11.0); Monocytes % 6.4 %; Platelet Count 297 10^3/uL (130-400); RBC 5.36 10^6/uL (3.93-5.22); RDW 18.7 % (11.7-14.6); RDW-SD 50.8 fL; WBC 13.36 10^3/uL (4.4-10.8)
[2024-06-27 22:05] LABS: Anion Gap 13.4 mmol/L (3-11); BUN 8 mg/dL (7-18); CO2 25.6 mmol/L (21.0-32.0); CREATININE 1.1 mg/dL (0.55-1.02); Calcium 9.1 mg/dL (8.5-10.1); Chloride 99 mmol/L (98-107); Estimated GFR 63.94 (mL/min/1.73m2); Glucose 91 mg/dL (74-106); Potassium 3.2 mmol/L (3.5-5.1); Sodium 138 mmol/L (136-145)
[2024-06-27] MEDS: Ketorolac 15 MG/ML VIAL 10 MG IVP (22:08)
[2024-06-27] MEDS: Ondansetron 4 MG/2 ML VIAL IVP (22:08)
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
[2024-06-27] MEDS: Potassium Chloride Liquid 20 MEQ PKT 40 MEQ PO (22:51)
[2024-06-28] VITALS (7 sets, daily range): BP systolic 149; BP diastolic 92–101; PULSE 91–105; RESP 16–48; TEMP 36.3; O2SAT 93–98
--- NOTE | 2024-06-28 00:17 | DI.VRAD_ITS ---
PROCEDURE INFORMATION: Exam: CT Abdomen And Pelvis Without Contrast Exam date and time: 06/27/2024 22:35 Age: 43 years old Clinical indication: Abdominal pain; Other: Flank pain TECHNIQUE: Imaging protocol: Computed tomography of the abdomen and pelvis without contrast. COMPARISON: CT CHEST PE CTA 02/07/2024 11:46 FINDINGS: Tubes, catheters and devices: Cardiac pacemaker leads are partially seen. Lungs: Suspected mild pulmonary alveolar edema, pattern less characteristic of pneumonitis or atypical infection. Minor bibasilar central pulmonary ground-glass opacities in association with cardiomegaly. Heart: Cardiomegaly is partially seen. Liver: No hepatic masses on noncontrast imaging. Gallbladder and biliary ducts: Cholelithiasis. No significant biliary dilation or radiopaque stones in the biliary tree. Pancreas: No ductal dilation. No mass on noncontrast imaging. Spleen: No splenomegaly or suspicious lesions. Adrenal glands: No suspicious mass on noncontrast imaging. Kidneys and ureters: Punctate nonobstructive right nephrolithiasis. No left nephrolithiasis. No left hydronephrosis. Stomach and bowel: Scattered colonic diverticula without inflammation. No gross pathology in the small bowel without IV contrast. Appendix: No evidence of appendicitis. Intraperitoneal space: No free air. No significant fluid collection. Vasculature: No abdominal aortic aneurysm. Lymph nodes: No significantly enlarged lymph nodes on noncontrast imaging. Urinary bladder: No gross wall thickening on noncontrast imaging. Reproductive: Unremarkable as visualized. Bones/joints: No acute fracture or subluxation. Soft tissues: Mild dependent subcutaneous edema. Prominent subcutaneous fat. IMPRESSION: 1. Suspected mild pulmonary alveolar edema, pattern less characteristic of pneumonitis or atypical infection. 2. Incidental findings as described. Dictated and Authenticated by: Massiel Madera MD. Ordering:[facility] Pete Ramirez MD
--- NOTE | 2024-06-28 00:39 | ED.PROG_ITS ---
Date of service: 06/28/24 Time of Service: 00:39 Medical Decision Making Patient was signed out to me by my colleague Dr. Qing Miranda. Please refer to HPI, physical exam, assessment and plan. Plan at time of signout was disposition of CT scan returned unremarkable. CT scan has returned, no evidence of acute pro cess. Suspected mild pulmonary alveolar edema, but no hypoxemia. Symptoms inconsistent with pneumonia. Patient states that she did have some coughing previously but none now. Laboratory workup stable otherwise. Patient was personally reassessed. Peripheral pulses are equal. Pain is around rib 10 on the lateral aspect. Mild reproducibility. No signs of trauma. No pain with resting or relaxing, however when she twists moves or sits up the pain which is sharp immediately comes back to that rib area. It seems to only occur with engagement of the muscles. Chest CAT scan and abdomen CAT scan showed no evidence of perforation, pericardial effusion or tamponade, patient otherwise feels well. Symptoms inconsistent with PE or ACS. Patient stable for discharge. I had a long discussion with her, we will give a Lidoderm patch here and a prescription for home use, however she does have return of her symptoms, I would recommend return for reassessment. Discussed red flags for which to return. I have extensively reviewed the treatment plan and discharge instructions with the patient and their family. I have addressed all patient concerns at this time. The patient and family was made aware of what symptoms to monitor for that would warrant a return to the emergency department. Discussed the plan with the patient and family, they demonstrate verbal understanding and agreement with our assessment and plan at this time. The documentation in this chart was dictated using [employer] dictation software. Please excuse any dictation errors. FINDINGS: Tubes, catheters and devices: Cardiac pacemaker leads are partially seen. Lungs: Suspected mild pulmonary alveolar edema, pattern less characteristic of pneumonitis or atypical infection. Minor bibasilar central pulmonary ground-glass opacities in association with cardiomegaly. Heart: Cardiomegaly is partially seen. Liver: No hepatic masses on noncontrast imaging. Gallbladder and biliary ducts: Cholelithiasis. No significant biliary dilation or radiopaque stones in the biliary tree. Pancreas: No ductal dilation. No mass on noncontrast imaging. Spleen: No splenomegaly or suspicious lesions. Adrenal glands: No suspicious mass on noncontrast imaging. Kidneys and ureters: Punctate nonobstructive right nephrolithiasis. No left nephrolithiasis. No left hydronephrosis. Stomach and bowel: Scattered colonic diverticula without inflammation. No gross pathology in the small bowel without IV contrast. Appendix: No evidence of appendicitis. Intraperitoneal space: No free air. No significant fluid collection. Vasculature: No abdominal aortic aneurysm. Lymph nodes: No significantly enlarged lymph nodes on noncontrast imaging. Urinary bladder: No gross wall thickening on noncontrast imaging. Reproductive: Unremarkable as visualized. Bones/joints: No acute fracture or subluxation. Soft tissues: Mild dependent subcutaneous edema. Prominent subcutaneous fat. IMPRESSION: 1. Suspected mild pulmonary alveolar edema, pattern less characteristic of pneumonitis or atypical infection. 2. Incidental findings as described. Thank you for allowing us to participate in the care of your patient. Dictated and Authenticated by: Massiel Madera MD 06/28/2024 12:17 AM Eastern Time ([place] & [place]) Quality:SDOH Health Related Social Needs: No Data to Display Discharge Plan Disposition Patient Disposition: Home Condition: Good Discharge Details Clinical Impression: Rib pain on left side Primary Care Provider: Justa Taveras ED Provider: Sy Hoffmann Home Meds and New Rx's Prescriptions: New lidocaine [Lidoderm] 5 % adhesive patch,medicated 1 patch Topical Q24H Qty: 15 0RF No Action losartan 50 mg tablet 50 mg PO DAILY Qty: 90 3RF levalbuterol tartrate [Xopenex HFA] 45 mcg/actuation HFA aerosol inhaler 2 inh inhalation Q6H Qty: 15 0RF (DME) Aerochamber MV Spacer See Rx Instructions .Route Qty: 1 0RF Rx Instructions: As directed Ovasitol 2,000-50 mg powder in packet PO cholecalciferol (vitamin D3) [Vitamin D3] 125 mcg (5,000 unit) tablet 10,000 unit PO .QOD magnesium 200 mg tablet 200 mg PO DAILY dapagliflozin propanediol [Farxiga] 10 mg tablet 10 mg PO DAILY metoprolol succinate 50 mg tablet extended release 24 hr 75 mg PO DAILY Qty: 135 3RF furosemide 40 mg tablet 60 mg PO BID Qty: 180 3RF dapagliflozin propanediol [Farxiga] 10 mg tablet 10 mg PO DAILY potassium chloride 20 mEq tablet extended release 40 meq PO DAILY Discharge Instructions Instructions: Chest Pain, Adult ED Additional Instructions: At this time your workup shows no evidence of perforation of your cardiac device through the heart, it shows no signs of rib fracture, kidney stone, or other significant abnormality. Based on your exam there is concern that you do have a spasm of the muscles in between your ribs that is causing a component of your pain. Please use Lidoderm patches as directed. These have been sent to your pharmacy on file. Please take at 1000 mg of Tylenol every 6 hours as needed for pain. Please use a heating pad to that area. If you notice any worsening of your symptoms, or any new symptoms such as vomiting, diarrhea, fever, chills, shortness of breath, chest pain, numbness, weakness, or fainting , please return immediately to the emergency department for reevaluation. Please follow up with your primary care provider as soon as possible for reassessment and reevaluation. As always, it was a pleasure participating in your medical care today. Referrals: Justa Taveras NP [Primary Care Provider] -
[2024-06-28] MEDS: Lidocaine 5% Patch 1 PATCH TP (00:53)
--- NOTE | 2024-07-03 12:06 | W.NUTRFU ---
Date of service: 06/27/24 Time of Service: 14:00 Nutrition Note NOTE: Jacinta referred for nutrition visit for nutrition guidance with multiple concerns - cardiac health, and weight management with PCOS as a confounding factor. She comes in with family visiting from [facility] to stay with her while she is s/p ICD placement. She was slow to get to office with assistance from her family, c/o L sided pain, citing they think it is gallbladder attack as they just came from getting lunch and she ate a large steak and cheese sub. Jacinta usually eats for one at home and finds she doesn't like to cook and food she buys tends to sit around and go bad. 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 History of low potassium - she takes 40mEq KCL ER, as well as 200mg Mg supplement daily. She is also ordered for Farxiga and 10,000IU vitamin D3 daily. A1c last February was 5.9% Reviewed importance of staying hydrated as Farxiga increases urination to help keep glucose down. Reviewed high potassium food list with Jacinta and recommended 2 high sources per day. She relays her goals today more re: heart health than weight mgt but interested in knowing estimated kcals, protein, fat and carbs she should have. Estimated energy and macronutrient recommendations for weight mgt: 1800kcals (REE -376kcals/day), 127g protein (1.2g/kg), 180g CHO (40%of kcals), 60g fat (30%kcals) with goal of 20g or less from saturated fats. Highlighted keeping added sugar down 25g or less and fiber to 25g or more. More than numbers, we reviewed being prepared and staying proactive are keys to menu planning for any goal. Gave example of lunch today as she says it was a last-minute decision. However I reviewed the large sub she had was at least 4 servings of carbs that were from refined sources and the steak and cheese was a high saturated fat source and easily supplying over half her limit. After diet history collected loosely, Jacinta's diet is assessed as low in fiber and produce and high in refined starches and sat fat. We discussed choosing easy foods to work with like LS cottage cheese, yogurts, nuts/seeds, berries, finger veggies and frozen medleys. We looked at making a static menu that is repeatable and limiting meal plan to 3 menus to cycle back and forth around as this will be even easier eating for one. Discussed important role of exercise (as tolerated and supervised) and sleep and stress mgt. Will remain available for any follow up needs Jacinta has as she works to increase fiber and lower kcal, nutrient rich choices consistently in her diet. Suggest considering addition of metformin if average glucose trends upward. PAtient agreed to me calling to follow up briefly over the phone in 3 weeks to get an update and check on barriers. Time Spent in Nutritional Counseling and Treatment: 25 min
== END 2024-06-28 00:54 | disposition home or self-care (01) ==
PROVIDERS: Emergency Medicine; Emergency Provider Student in an Organized Health Care Education/Training Program; PCP Nurse Practitioner Family
DX: R10.12 Left upper quadrant pain (principal); Z87.442 Personal history of urinary calculi; Z95.0 Presence of cardiac pacemaker; I50.9 Heart failure, unspecified; I11.0 Hypertensive heart disease with heart failure
CPT/HCPCS: 00123; 36415; 80048; 81025; 96374; 96375; 99285; 74176; 81003; 81015; 85025; 99284; J1885; J2405

== ENCOUNTER 2024-07-16 09:22 | Outpatient (CLI) | payer OTHER, SELFPAY ==
--- NOTE | 2024-07-16 09:15 | RT.EKG_ITS ---
APPROVED REPORT Exam: Resting ECG Reason for Exam: heart failure Patient Location: O HR:86 bpm ECG Measurements Heart Rate 86 AXIS MO 174 P 35 QRSd 110 QRS -11 QT 379 T -87 QTc 454 Conclusion Sinus rhythm...normal P axis, V-rate 50- 99 Probable left atrial enlargement...P >50mS, <-0.10mV V1 LVH with IVCD and secondary repol abnrm...multi-criteria, wQRSd, abnr ST-T Baseline wander in lead(s) V1
== END 2024-07-16 09:23 | disposition home or self-care (01) ==
LOC: DI.CARD 09:23
PROVIDERS: PCP Nurse Practitioner Family; Visit Provider Internal Medicine Cardiovascular Disease
DX: Z95.810 Presence of automatic (implantable) cardiac defibrillator (principal); I50.20 Unspecified systolic (congestive) heart failure
CPT/HCPCS: 93010

== ENCOUNTER 2024-08-06 13:00 | Outpatient (RCR) | payer OTHER, SELFPAY ==
--- OUTSIDE RECORDS SUMMARY | 2024-07-18 13:47 | XMS_ITS | Encounter Summary ---
Author Organization [facility] Address [address] [place] [address] Care Team Providers Care Lens Grinder And Polisher Name Role Phone Unavailable Primary Care Provider Unavailabl e Encounter Details Date Type Department Care Team (Late st Contact Info) Description 04/30/2024 Lab Requisition [facility] Pathology & Laboratory Medicine - [facility] [address] [place] [address] Jaz Kc, RETAIL WIRELESS SALES REPRESENTATIVE [address] [id number] Encounter for other general examination Social History [...]
--- OUTSIDE RECORDS SUMMARY | 2024-07-18 13:47 | XMS_ITS | Encounter Summary ---
Author Organization [facility] Address [address] [place] [address] Care Team Providers Care Last Model Maker Name Role Phone Unavailable Primary Care Provider Unavailabl e Encounter Details Date Type Department Care Team (Late st Contact Info) Description 02/08/2024 Lab Requisition [facility] Pathology & Laboratory Medicine - [facility] [address] [place] [address] Outr Resulting Lab, Provider Social History Tobacco [...] Quantiferon Interpretation Negative Negative 02/11/2024 13:40 EDT [facility] Comment:No interferon-gamma response to M. tuberculosis antigens was detected. ??Infection with M. tuberculosis is unlikely. A single negative result does not exclude infection with M. tuberculosis. ??In patients at high risk for M. tuberculosis infection, a second test should be considered. TB1 Ag minus Nil 0.00 IU/ml 02/11/20 13:40 EDT [facility] TB2 Ag minus Nil 0.00 IU/mL 02/11/20 13:40 EDT [facility] Blood VENOUS BLOOD / Unknown 02/07/2024 13:18 EDT 02/11/2024 13:39 EDT Provider Outr Resulting Lab IMMUNOLOGY A ND SEROLOGY ORDERABLES Performing Organization Address [facility] Co de Phone Number [facility] [address] [place] [address] * QUANTIFERON MITOGEN (PERFORMABLE) (02/07/2024 13:18 EDT) Blood VENOUS BLOOD / Unknown 02/07/2024 13:18 EDT 02/08/2024 17:22 EDT Provider Outr Resulting Lab IMMUNOLOGY A ND SEROLOGY ORDERABLES Performing Organization Address [facility] de Phone Number [facility] [address] [place] [address] * QUANTIFERON TB2 (PERFORMABLE) (02/07/2024 13:18 EDT) Blood VENOUS BLOOD / Unknown 02/07/2024 13:18 EDT 02/08/2024 17:22 EDT Provider Outr Resulting Lab IMMUNOLOGY A ND SEROLOGY ORDERABLES Performing Organization Address [facility] Co de Phone Number [facility] [address] [place] [address] * QUANTIFERON TB1 (PERFORMABLE) (02/07/2024 13:18 EDT) Blood VENOUS BLOOD / Unknown 02/07/2024 13:18 EDT 02/08/2024 17:22 EDT Provider Outr Resulting Lab IMMUNOLOGY A ND SEROLOGY ORDERABLES Performing Organization Address [facility] Co de Phone Number [facility] [address] [place] [address] * QUANTIFERON NIL (PERFORMABLE) (02/07/2024 13:18 EDT) Blood VENOUS BLOOD / Unknown 02/07/2024 13:18 EDT 02/08/2024 17:22 EDT Provider Outr Resulting Lab IMMUNOLOGY A ND SEROLOGY ORDERABLES Performing Organization Address [facility] Co de Phone Number [facility] [address] [place] [address] documented in this encounter Visit Diagnoses Not on filedocumented in this encounter
--- OUTSIDE RECORDS SUMMARY | 2024-07-18 13:47 | XMS_ITS | Referral Summary ---
Author Organization [facility] Address [address] [place] [address] Care Team Providers Care Top Waddy Name Role Phone Unavailable Primary Care Provider Unavailabl e Encounters Date Type Department Care Team Description 04/30/2024 Lab Requisition [facility] [address] [address] Jaz Kc APRN Encounter for other general examination 04/30/2024 Lab Requisition [facility] [address] [address] Jaz Kc APRN Encounter for other general [...] System with Manual Evaluation 05/06/2024 15:20 EDT [facility] Specimen Adequacy Satisfactory for Evaluation - transformation zone component present 05/06/2024 15:20 EDT [facility] General Categorization Negative for intraepithelial lesion or malignancy 05/06/2024 15:20 EDT [facility] Descriptive Diagnosis 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 05/06/2024 15:20 EDT [facility] Attestation . 05/06/2024 15:20 EDT [facility] at 1520 Clinical History See below 05/06/20 15:20 EDT [facility] HPV The result for the Human Papillomavirus (HPV) Detection-High Risk Types is Positive . E6 OR E7 mRNA from one or more types of HPV types 16,18,31,33,35,39 ,45,51,52,56,58,5 9,66, and 68 is detected by mosaic worker mediated amplification. High and intermediate risk HPV types are associated with most squamous intraepithelial lesions and cervical cancers. Testing was performed on specimen [id number] and was resulted on 05/06/2024 1520 EDT by THANH, LAB INSTRUMENT RESULTS IN 05/06/2024 15:20 EDT [facility] Performing Lab [facility] 05/06/2024 15:20 T [facility] Scanned Images 05/06/2024 15:20 T [facility] Pap Test CERVIX UTERI STRUCTURE / Unknown 04/29/2024 13:10 EDT 04/30/2024 12:05 EDT Jaz Kc APRN PATHOLOGY ORDERAB LES [facility] [address] [place] [address] * (ABNORMAL) HUMAN PAPILLOMAVIRUS (HPV) DETECTION-HIGH RISK TYPES (04/29/2024 13:10 EDT) HPV other High Risk types, PCR Positive( A) Negative 05/06/2024 15:20 EDT [facility] Comment:E6 OR E7 mRNA from o ne or more types of HPV types 16,18,31,33,35,39,45,51,52,56,58,59,66, and 68 is detected by mosaic worker mediated amplification. High and intermediate risk HPV types are associated with most squamous intraepithelial lesions and cervical cancers. Pap Test CERVIX UTERI STRUCTURE / Unknown 04/29/2024 13:10 EDT 05/05/2024 13:24 EDT Jaz Kc APRN MICROBIOLOGY - GE NERAL ORDERABLES [facility] [address] [place] [address] * HEPATITIS C AB W REFLEX TO HCV RNA BY PCR (02/15/2024 8:14 EDT) Hep C Antibody Negative Negative 02/16/2024 9:25 EDT [facility] Blood VENOUS BLOOD / Unknown 02/15/2024 8:14 EDT 02/15/2024 17:02 EDT Provider Outr Resulting Lab CHEMISTRY & BLOOD GAS ORDERABLES [facility] [address] [place] [address] from Last 3 Months or Most Recently Relevant to Health Maintenance
--- OUTSIDE RECORDS SUMMARY | 2024-07-18 13:47 | XMS_ITS | Encounter Summary ---
Author Organization [facility] Address [address] [place] [address] Care Team Providers Care Tax Associate Attorney Name Role Phone Unavailable Primary Care Provider Unavailabl e Encounter Details Date Type Department Care Team (Late st Contact Info) Description 02/15/2024 Lab Requisition [facility] Pathology & Laboratory Medicine - [facility] [address] [place], [place] [address] Outr Resulting Lab, Provider Social History Tobacco [...] C Antibody Negative Negative 02/16/2024 9:25 EDT [facility] Blood VENOUS BLOOD / Unknown 02/15/2024 8:14 EDT 02/15/2024 17:02 EDT Provider Outr Resulting Lab CHEMISTRY & BLOOD GAS ORDERABLES [facility] [address] [place], [place] [address] * TRANSFERRIN (02/15/2024 8:14 EDT) Transferrin 322 201 - 352 mg/dL 02/18/2024 8:31 EDT [facility] Blood VENOUS BLOOD / Unknown 02/15/2024 8:14 EDT 02/15/2024 17:02 EDT Provider Outr Resulting Lab CHEMISTRY & BLOOD GAS ORDERABLES [facility] [address] [place] [address] documented in this encounter Visit Diagnoses Not on filedocumented in this encounter
--- OUTSIDE RECORDS SUMMARY | 2024-07-18 13:47 | XMS_ITS | Clinical Summary ---
Author Organization [facility] Address [address] [place] [address] Care Team Providers Care Automatic Hemmer Name Role Phone Unavailable Primary Care Provider Unavailabl e Encounters Date Type Department Care Team Description 04/30/2024 Lab Requisition [facility] Pathology & Laboratory [address] [id number] Jaz Kc APRN Encounter for other general examination 04/30/2024 Lab Requisition [facility] Pathology & Laboratory [address] [address] Jaz Kc APRN Encounter for other general [...] System with Manual Evaluation 05/06/2024 15:20 EDT [facility] Specimen Adequacy Satisfactory for Evaluation - transformation zone component present 05/06/2024 15:20 EDT [facility] General Categorization Negative for intraepithelial lesion or malignancy 05/06/2024 15:20 T [facility] Descriptive Diagnosis 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 05/06/2024 15:20 T [facility] Attestation . 05/06/2024 15:20 T [facility] at 1520 Clinical History See below 05/06/20 15:20 T [facility] HPV The result for the Human Papillomavirus (HPV) Detection-High Risk Types is Positive . E6 OR E7 mRNA from one or more types of HPV types 16,18,31,33,35,39 ,45,51,52,56,58,5 9,66, and 68 is detected by membership manager mediated amplification. High and intermediate risk HPV types are associated with most squamous intraepithelial lesions and cervical cancers. Testing was performed on specimen [id number] and was resulted on 05/06/2024 1520 EDT by THANH, LAB INSTRUMENT RESULTS IN 05/06/2024 15:20 EDT [facility] Performing Lab [facility] 05/06/2024 15:20 EDT [facility] Scanned Images 05/06/2024 15:20 T [facility] Pap Test CERVIX UTERI STRUCTURE / Unknown 04/29/2024 13:10 EDT 04/30/2024 12:05 EDT Jaz Kc APRN PATHOLOGY ORDERAB LES [facility] [address] [place] [address] * (ABNORMAL) HUMAN PAPILLOMAVIRUS (HPV) DETECTION-HIGH RISK TYPES (04/29/2024 13:10 EDT) HPV other High Risk types, PCR Positive( A) Negative 05/06/2024 15:20 EDT [facility] Comment:E6 OR E7 mRNA from o ne or more types of HPV types 16,18,31,33,35,39,45,51,52,56,58,59,66, and 68 is detected by membership manager mediated amplification. High and intermediate risk HPV types are associated with most squamous intraepithelial lesions and cervical cancers. Pap Test CERVIX UTERI STRUCTURE / Unknown 04/29/2024 13:10 EDT 05/05/2024 13:24 EDT Jaz Kc GEOTHERMAL OPERATIONS MANAGER MICROBIOLOGY - GE NERAL ORDERABLES [facility] [address] [place] [address] * HEPATITIS C AB W REFLEX TO HCV RNA BY PCR (02/15/2024 8:14 EDT) Hep C Antibody Negative Negative 02/16/2024 9:25 EDT [facility] Blood VENOUS BLOOD / Unknown 02/15/2024 8:14 EDT 02/15/2024 17:02 EDT Provider Outr Resulting Lab CHEMISTRY & BLOOD GAS ORDERABLES [facility] [address] [place] [address] from Last 3 Months or Most Recently Relevant to Health Maintenance
--- OUTSIDE RECORDS SUMMARY | 2024-07-18 13:47 | XMS_ITS | Encounter Summary ---
Author Organization [facility] Address [address] [place] [address] Care Team Providers Care Bearing Maker Name Role Phone Unavailable Primary Care Provider Unavailabl e Encounter Details Date Type Department Care Team (Late st Contact Info) Description 04/30/2024 Lab Requisition [facility] Pathology & Laboratory Medicine - [facility] [address] [place] [address] Jaz Kc, ELECTRICAL DESIGNER DRAFTER [address] [place] [address] Encounter for other general examination [...] PCR Positive( A) Negative 05/06/2024 15:20 EDT [facility] Comment:E6 OR E7 mRNA from o ne or more types of HPV types 16,18,31,33,35,39,45,51,52,56,58,59,66, and 68 is detected by drawing press operator mediated amplification. High and intermediate risk HPV types are associated with most squamous intraepithelial lesions and cervical cancers. Pap Test CERVIX UTERI STRUCTURE / Unknown 04/29/2024 13:10 EDT 05/05/2024 13:24 EDT Jaz A De SMALL MICROBIOLOGY - GE NERAL ORDERABLES [facility] [address] [place] [address] * PAP TEST (04/29/2024 13:10 EDT) Specimens A. Cervix and/or Endocervix , ThinPrep Imaging System with Manual Evaluation 05/06/2024 15:20 EDT [facility] Specimen Adequacy Satisfactory for Evaluation - transformation zone component present 05/06/2024 15:20 EDT [facility] General Categorization Negative for intraepithelial lesion or malignancy 05/06/2024 15:20 T [facility] Descriptive Diagnosis 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 05/06/2024 15:20 EDT [facility] Attestation . 05/06/2024 15:20 T [facility] at 1520 Clinical History See below 05/06/20 15:20 EDT [facility] HPV The result for the Human Papillomavirus (HPV) Detection-High Risk Types is Positive . E6 OR E7 mRNA from one or more types of HPV types 16,18,31,33,35,39 ,45,51,52,56,58,5 9,66, and 68 is detected by drawing press operator mediated amplification. High and intermediate risk HPV types are associated with most squamous intraepithelial lesions and cervical cancers. Testing was performed on specimen [id number] and was resulted on 05/06/2024 1520 EDT by THANH, LAB INSTRUMENT RESULTS IN 05/06/2024 15:20 EDT [facility] Performing Lab [facility] 05/06/2024 15:20 EDT [facility] Scanned Images 05/06/2024 15:20 EDT [facility] Pap Test CERVIX UTERI STRUCTURE / Unknown 04/29/2024 13:10 EDT 04/30/2024 12:05 EDT Jaz Kc ELECTRICAL DESIGNER DRAFTER PATHOLOGY ORDERAB LES [facility] [address] [place] [address] documented in this encounter Visit Diagnoses Diagnosis Encounter for other general examination documented in this encounter
--- OUTSIDE RECORDS SUMMARY | 2024-07-21 13:15 | XMS_ITS | Encounter Summary ---
Author Organization [facility] Address [address] [place] [address] Care Team Providers Care Geoscientist Name Role Phone Unavailable Primary Care Provider Unavailabl e Encounter Details Date Type Department Care Team (Late st Contact Info) Description 02/15/2024 Lab Requisition [facility] Pathology & Laboratory Medicine - [facility] [address], [place] [address] Outr Resulting Lab, Provider Social History Tobacco [...] C Antibody Negative Negative 02/16/2024 9:25 EDT [facility] Blood VENOUS BLOOD / Unknown 02/15/2024 8:14 EDT 02/15/2024 17:02 EDT Provider Outr Resulting Lab CHEMISTRY & BLOOD GAS ORDERABLES [facility] [address] [place], [place] [id number] * TRANSFERRIN (02/15/2024 8:14 EDT) Transferrin 322 201 - 352 mg/dL 02/18/2024 8:31 EDT [facility] Blood VENOUS BLOOD / Unknown 02/15/2024 8:14 EDT 02/15/2024 17:02 EDT Provider Outr Resulting Lab CHEMISTRY & BLOOD GAS ORDERABLES [facility] [address] [place] [address] documented in this encounter Visit Diagnoses Not on filedocumented in this encounter
--- OUTSIDE RECORDS SUMMARY | 2024-07-21 13:15 | XMS_ITS | Encounter Summary ---
Author Organization [facility] Address [address] [place] [address] Care Team Providers Care Practicing Dermatologist Name Role Phone Unavailable Primary Care Provider Unavailabl e Encounter Details Date Type Department Care Team (Late st Contact Info) Description 04/30/2024 Lab Requisition [facility] Pathology & Laboratory Medicine - [facility] [address] [place] [address] Jaz Kc, MINE TECHNICIAN [address] [place] [id number] Encounter for other general examination Social History [...]
--- OUTSIDE RECORDS SUMMARY | 2024-07-21 13:15 | XMS_ITS | Encounter Summary ---
Author Organization [facility] Address [address] [place] [address] Care Team Providers Care Electronics Assembler And Tester Name Role Phone Unavailable Primary Care Provider Unavailabl e Encounter Details Date Type Department Care Team (Late st Contact Info) Description 04/30/2024 Lab Requisition [facility] Pathology & Laboratory Medicine - [facility] [address] [place] [address] Jaz Kc, SHIELD RUNNER [address] [place] [address] Encounter for other general examination [...] PCR Positive( A) Negative 05/06/2024 15:20 EDT [facility] Comment:E6 OR E7 mRNA from o ne or more types of HPV types 16,18,31,33,35,39,45,51,52,56,58,59,66, and 68 is detected by gleason operator mediated amplification. High and intermediate risk HPV types are associated with most squamous intraepithelial lesions and cervical cancers. Pap Test CERVIX UTERI STRUCTURE / Unknown 04/29/2024 13:10 EDT 05/05/2024 13:24 EDT Jaz A De SMALL MICROBIOLOGY - GE NERAL ORDERABLES [facility] [address] [place] [address] * PAP TEST (04/29/2024 13:10 EDT) Specimens A. 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 05/06/2024 15:20 EDT [facility] Attestation . 05/06/2024 15:20 T [facility] at 1520 Clinical History See below 05/06/20 15:20 EDT [facility] HPV The result for the Human Papillomavirus (HPV) Detection-High Risk Types is Positive . E6 OR E7 mRNA from one or more types of HPV types 16,18,31,33,35,39 ,45,51,52,56,58,5 9,66, and 68 is detected by gleason operator mediated amplification. High and intermediate risk HPV types are associated with most squamous intraepithelial lesions and cervical cancers. Testing was performed on specimen [id number] and was resulted on 05/06/2024 1520 EDT by THANH, LAB INSTRUMENT RESULTS IN 05/06/2024 15:20 EDT [facility] Performing Lab [facility] 05/06/2024 15:20 EDT [facility] Scanned Images 05/06/2024 15:20 EDT [facility] Pap Test CERVIX UTERI STRUCTURE / Unknown 04/29/2024 13:10 EDT 04/30/2024 12:05 EDT Jaz Kc SHIELD RUNNER PATHOLOGY ORDERAB LES [facility] [address] [place] [address] documented in this encounter Visit Diagnoses Diagnosis Encounter for other general examination documented in this encounter
--- OUTSIDE RECORDS SUMMARY | 2024-07-21 13:15 | XMS_ITS | Referral Summary ---
Author Organization [facility] Address [address] [place] [address] Care Team Providers Care Engineering Mgr Name Role Phone Unavailable Primary Care Provider Unavailabl e Encounters Date Type Department Care Team Description 04/30/2024 Lab Requisition [facility] Pathology & Laboratory [address] [address] Jaz Kc APRN Encounter for other general examination 04/30/2024 Lab Requisition [facility] Pathology & Laboratory [address] [address] Jaz Kc APRN Encounter for other general [...] System with Manual Evaluation 05/06/2024 15:20 EDT [facility] Specimen Adequacy Satisfactory for Evaluation - transformation zone component present 05/06/2024 15:20 EDT [facility] General Categorization Negative for intraepithelial lesion or malignancy 05/06/2024 15:20 EDT [facility] Descriptive Diagnosis 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 05/06/2024 15:20 EDT [facility] Attestation . 05/06/2024 15:20 EDT [facility] at 1520 Clinical History See below 05/06/20 15:20 EDT [facility] HPV The result for the Human Papillomavirus (HPV) Detection-High Risk Types is Positive . E6 OR E7 mRNA from one or more types of HPV types 16,18,31,33,35,39 ,45,51,52,56,58,5 9,66, and 68 is detected by survey questionnaire designer mediated amplification. High and intermediate risk HPV types are associated with most squamous intraepithelial lesions and cervical cancers. Testing was performed on specimen [id number] and was resulted on 05/06/2024 1520 EDT by THANH, LAB INSTRUMENT RESULTS IN 05/06/2024 15:20 EDT [facility] Performing Lab [facility] 05/06/2024 15:20 T [facility] Scanned Images 05/06/2024 15:20 T [facility] Pap Test CERVIX UTERI STRUCTURE / Unknown 04/29/2024 13:10 EDT 04/30/2024 12:05 EDT Jaz Kc APRN PATHOLOGY ORDERAB LES [facility] [address] [place] [address] * (ABNORMAL) HUMAN PAPILLOMAVIRUS (HPV) DETECTION-HIGH RISK TYPES (04/29/2024 13:10 EDT) HPV other High Risk types, PCR Positive( A) Negative 05/06/2024 15:20 EDT [facility] Comment:E6 OR E7 mRNA from o ne or more types of HPV types 16,18,31,33,35,39,45,51,52,56,58,59,66, and 68 is detected by survey questionnaire designer mediated amplification. High and intermediate risk HPV types are associated with most squamous intraepithelial lesions and cervical cancers. Pap Test CERVIX UTERI STRUCTURE / Unknown 04/29/2024 13:10 EDT 05/05/2024 13:24 EDT Jaz Kc APRN MICROBIOLOGY - GE NERAL ORDERABLES [facility] [address] [place] [address] * HEPATITIS C AB W REFLEX TO HCV RNA BY PCR (02/15/2024 8:14 EDT) Hep C Antibody Negative Negative 02/16/2024 9:25 EDT [facility] Blood VENOUS BLOOD / Unknown 02/15/2024 8:14 EDT 02/15/2024 17:02 EDT Provider Outr Resulting Lab CHEMISTRY & BLOOD GAS ORDERABLES [facility] [address] [place] [address] from Last 3 Months or Most Recently Relevant to Health Maintenance
--- OUTSIDE RECORDS SUMMARY | 2024-07-21 13:15 | XMS_ITS | Encounter Summary ---
Author Organization [facility] Address [address] [place] [address] Care Team Providers Care Drawing Frame Tender Name Role Phone Unavailable Primary Care Provider Unavailabl e Encounter Details Date Type Department Care Team (Late st Contact Info) Description 02/08/2024 Lab Requisition [facility] Pathology & Laboratory Medicine - [facility] [address] [place] [address] Outr Resulting Lab, Provider Social History Tobacco [...] Quantiferon Interpretation Negative Negative 02/11/2024 13:40 EDT [facility] Comment:No interferon-gamma response to M. tuberculosis antigens was detected. ??Infection with M. tuberculosis is unlikely. A single negative result does not exclude infection with M. tuberculosis. ??In patients at high risk for M. tuberculosis infection, a second test should be considered. TB1 Ag minus Nil 0.00 IU/ml 02/11/20 13:40 EDT [facility] TB2 Ag minus Nil 0.00 IU/mL 02/11/20 13:40 EDT [facility] Blood VENOUS BLOOD / Unknown 02/07/2024 13:18 EDT 02/11/2024 13:39 EDT Provider Outr Resulting Lab IMMUNOLOGY A ND SEROLOGY ORDERABLES Performing Organization Address [facility] Co de Phone Number [facility] [address] [place] [address] * QUANTIFERON MITOGEN (PERFORMABLE) (02/07/2024 13:18 EDT) Blood VENOUS BLOOD / Unknown 02/07/2024 13:18 EDT 02/08/2024 17:22 EDT Provider Outr Resulting Lab IMMUNOLOGY A ND SEROLOGY ORDERABLES Performing Organization Address [facility] de Phone Number [facility] [address] [place] [address] * QUANTIFERON TB2 (PERFORMABLE) (02/07/2024 13:18 EDT) Blood VENOUS BLOOD / Unknown 02/07/2024 13:18 EDT 02/08/2024 17:22 EDT Provider Outr Resulting Lab IMMUNOLOGY A ND SEROLOGY ORDERABLES Performing Organization Address [facility] Co de Phone Number [facility] [address] [place] [address] * QUANTIFERON TB1 (PERFORMABLE) (02/07/2024 13:18 EDT) Blood VENOUS BLOOD / Unknown 02/07/2024 13:18 EDT 02/08/2024 17:22 EDT Provider Outr Resulting Lab IMMUNOLOGY A ND SEROLOGY ORDERABLES Performing Organization Address [facility] Co de Phone Number [facility] [address] [place] [address] * QUANTIFERON NIL (PERFORMABLE) (02/07/2024 13:18 EDT) Blood VENOUS BLOOD / Unknown 02/07/2024 13:18 EDT 02/08/2024 17:22 EDT Provider Outr Resulting Lab IMMUNOLOGY A ND SEROLOGY ORDERABLES Performing Organization Address [facility] Co de Phone Number [facility] [address] [place] [address] documented in this encounter Visit Diagnoses Not on filedocumented in this encounter
--- OUTSIDE RECORDS SUMMARY | 2024-07-21 13:15 | XMS_ITS | Clinical Summary ---
Author Organization [facility] Address [address] [place] [address] Care Team Providers Care Cable Driller Name Role Phone Unavailable Primary Care Provider Unavailabl e Encounters Date Type Department Care Team Description 04/30/2024 Lab Requisition [facility] Pathology & Laboratory [address] [address] Jaz Kc APRN Encounter for other general examination 04/30/2024 Lab Requisition [facility] Pathology & Laboratory [address] [address] Jaz Kc APRN Encounter for other general [...] System with Manual Evaluation 05/06/2024 15:20 EDT [facility] Specimen Adequacy Satisfactory for Evaluation - transformation zone component present 05/06/2024 15:20 EDT [facility] General Categorization Negative for intraepithelial lesion or malignancy 05/06/2024 15:20 T [facility] Descriptive Diagnosis 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 05/06/2024 15:20 T [facility] Attestation . 05/06/2024 15:20 T [facility] at 1520 Clinical History See below 05/06/20 15:20 T [facility] HPV The result for the Human Papillomavirus (HPV) Detection-High Risk Types is Positive . E6 OR E7 mRNA from one or more types of HPV types 16,18,31,33,35,39 ,45,51,52,56,58,5 9,66, and 68 is detected by test lead mediated amplification. High and intermediate risk HPV types are associated with most squamous intraepithelial lesions and cervical cancers. Testing was performed on specimen [id number] and was resulted on 05/06/2024 1520 EDT by THANH, LAB INSTRUMENT RESULTS IN 05/06/2024 15:20 EDT [facility] Performing Lab [facility] 05/06/2024 15:20 EDT [facility] Scanned Images 05/06/2024 15:20 T [facility] Pap Test CERVIX UTERI STRUCTURE / Unknown 04/29/2024 13:10 EDT 04/30/2024 12:05 EDT Jaz Kc APRN PATHOLOGY ORDERAB LES [facility] [address] [place] [address] * (ABNORMAL) HUMAN PAPILLOMAVIRUS (HPV) DETECTION-HIGH RISK TYPES (04/29/2024 13:10 EDT) HPV other High Risk types, PCR Positive( A) Negative 05/06/2024 15:20 EDT [facility] Comment:E6 OR E7 mRNA from o ne or more types of HPV types 16,18,31,33,35,39,45,51,52,56,58,59,66, and 68 is detected by test lead mediated amplification. High and intermediate risk HPV types are associated with most squamous intraepithelial lesions and cervical cancers. Pap Test CERVIX UTERI STRUCTURE / Unknown 04/29/2024 13:10 EDT 05/05/2024 13:24 EDT Jaz Kc JOURNEYMAN ELECTRICIAN PV INSTALLER MICROBIOLOGY - GE NERAL ORDERABLES [facility] [address] [place] [address] * HEPATITIS C AB W REFLEX TO HCV RNA BY PCR (02/15/2024 8:14 EDT) Hep C Antibody Negative Negative 02/16/2024 9:25 EDT [facility] Blood VENOUS BLOOD / Unknown 02/15/2024 8:14 EDT 02/15/2024 17:02 EDT Provider Outr Resulting Lab CHEMISTRY & BLOOD GAS ORDERABLES [facility] [address] [place] [address] from Last 3 Months or Most Recently Relevant to Health Maintenance
--- OUTSIDE RECORDS SUMMARY | 2024-07-23 13:37 | XMS_ITS | Clinical Summary ---
Author Organization [facility] Address [address] [place] [address] Care Team Providers Care Asphalt Paving Machine Operator Name Role Phone Unavailable Primary Care Provider Unavailabl e Encounters Date Type Department Care Team Description 04/30/2024 Lab Requisition [facility] Pathology & Laboratory [address] [address] Jaz Kc APRN Encounter for other general examination 04/30/2024 Lab Requisition [facility] Pathology & Laboratory [address] [address] Jaz Kc APRN Encounter for other general [...] intraepithelial lesion or malignancy 05/06/2024 15:20 T [facility] Descriptive Diagnosis 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 05/06/2024 15:20 T [facility] Attestation . 05/06/2024 15:20 T [facility] at 1520 Clinical History See below 05/06/20 15:20 T [facility] HPV The result for the Human Papillomavirus (HPV) Detection-High Risk Types is Positive . E6 OR E7 mRNA from one or more types of HPV types 16,18,31,33,35,39 ,45,51,52,56,58,5 9,66, and 68 is detected by drum carrier mediated amplification. High and intermediate risk HPV types are associated with most squamous intraepithelial lesions and cervical cancers. Testing was performed on specimen [id number] and was resulted on 05/06/2024 1520 EDT by THANH, LAB INSTRUMENT RESULTS IN 05/06/2024 15:20 EDT [facility] Performing Lab [facility] 05/06/2024 15:20 EDT [facility] Scanned Images 05/06/2024 15:20 T [facility] Pap Test CERVIX UTERI STRUCTURE / Unknown 04/29/2024 13:10 EDT 04/30/2024 12:05 EDT Jaz Kc APRN PATHOLOGY ORDERAB LES [facility] [address] [place] [address] * (ABNORMAL) HUMAN PAPILLOMAVIRUS (HPV) DETECTION-HIGH RISK TYPES (04/29/2024 13:10 EDT) HPV other High Risk types, PCR Positive( A) Negative 05/06/2024 15:20 EDT [facility] Comment:E6 OR E7 mRNA from o ne or more types of HPV types 16,18,31,33,35,39,45,51,52,56,58,59,66, and 68 is detected by drum carrier mediated amplification. High and intermediate risk HPV types are associated with most squamous intraepithelial lesions and cervical cancers. Pap Test CERVIX UTERI STRUCTURE / Unknown 04/29/2024 13:10 EDT 05/05/2024 13:24 EDT Jaz Kc GEOPHYSICAL SUPPORT SPECIALIST MICROBIOLOGY - GE NERAL ORDERABLES [facility] [address] [place] [address] * HEPATITIS C AB W REFLEX TO HCV RNA BY PCR (02/15/2024 8:14 EDT) Hep C Antibody Negative Negative 02/16/2024 9:25 EDT [facility] Blood VENOUS BLOOD / Unknown 02/15/2024 8:14 EDT 02/15/2024 17:02 EDT Provider Outr Resulting Lab CHEMISTRY & BLOOD GAS ORDERABLES [facility] [address] [place] [address] from Last 3 Months or Most Recently Relevant to Health Maintenance
--- OUTSIDE RECORDS SUMMARY | 2024-07-23 13:37 | XMS_ITS | Encounter Summary ---
Author Organization [facility] Address [address] [place] [address] Care Team Providers Care Rn Acls Name Role Phone Unavailable Primary Care Provider Unavailabl e Encounter Details Date Type Department Care Team (Late st Contact Info) Description 04/30/2024 Lab Requisition [facility] Pathology & Laboratory Medicine - [facility] [address] [place] [address] Jaz Kc, TUBING MILL OPERATOR [address] [place] [address] Encounter for other general examination [...] PCR Positive( A) Negative 05/06/2024 15:20 EDT [facility] Comment:E6 OR E7 mRNA from o ne or more types of HPV types 16,18,31,33,35,39,45,51,52,56,58,59,66, and 68 is detected by die finisher forging mediated amplification. High and intermediate risk HPV types are associated with most squamous intraepithelial lesions and cervical cancers. Pap Test CERVIX UTERI STRUCTURE / Unknown 04/29/2024 13:10 EDT 05/05/2024 13:24 EDT [place] A De SMALL MICROBIOLOGY - GE NERAL ORDERABLES [facility] [address] [place] [address] * PAP TEST (04/29/2024 13:10 EDT) Specimens A. Cervix and/or Endocervix , ThinPrep Imaging System with Manual Evaluation 05/06/2024 15:20 EDT [facility] Specimen Adequacy Satisfactory for Evaluation - transformation zone component present 05/06/2024 15:20 EDT [facility] General Categorization Negative for intraepithelial lesion or malignancy 05/06/2024 15:20 T [facility] Descriptive Diagnosis 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 05/06/2024 15:20 EDT [facility] Attestation . 05/06/2024 15:20 T [facility] at 1520 Clinical History See below 05/06/20 15:20 EDT [facility] HPV The result for the Human Papillomavirus (HPV) Detection-High Risk Types is Positive . E6 OR E7 mRNA from one or more types of HPV types 16,18,31,33,35,39 ,45,51,52,56,58,5 9,66, and 68 is detected by die finisher forging mediated amplification. High and intermediate risk HPV types are associated with most squamous intraepithelial lesions and cervical cancers. Testing was performed on specimen [id number] and was resulted on 05/06/2024 1520 EDT by THANH, LAB INSTRUMENT RESULTS IN 05/06/2024 15:20 EDT [facility] Performing Lab [facility] 05/06/2024 15:20 EDT [facility] Scanned Images 05/06/2024 15:20 EDT [facility] Pap Test CERVIX UTERI STRUCTURE / Unknown 04/29/2024 13:10 EDT 04/30/2024 12:05 EDT Jaz Kc TUBING MILL OPERATOR PATHOLOGY ORDERAB LES [facility] [address] [place] [address] documented in this encounter Visit Diagnoses Diagnosis Encounter for other general examination documented in this encounter
--- OUTSIDE RECORDS SUMMARY | 2024-07-23 13:37 | XMS_ITS | Referral Summary ---
Author Organization [facility] Address [address] [place] [address] Care Team Providers Care Rawhide Bone Roller Name Role Phone Unavailable Primary Care Provider Unavailabl e Encounters Date Type Department Care Team Description 04/30/2024 Lab Requisition [facility] Pathology & Laboratory [address] [address] Jaz Kc APRN Encounter for other general examination 04/30/2024 Lab Requisition [facility] Pathology & Laboratory [address] [address] Jaz Kc APRN Encounter for other general [...] with Manual Evaluation 05/06/2024 15:20 EDT [facility] Specimen Adequacy Satisfactory for Evaluation - transformation zone component present 05/06/2024 15:20 EDT [facility] General Categorization Negative for intraepithelial lesion or malignancy 05/06/2024 15:20 EDT [facility] Descriptive Diagnosis 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 05/06/2024 15:20 EDT [facility] Attestation . 05/06/2024 15:20 EDT [facility] at 1520 Clinical History See below 05/06/20 15:20 EDT [facility] HPV The result for the Human Papillomavirus (HPV) Detection-High Risk Types is Positive . E6 OR E7 mRNA from one or more types of HPV types 16,18,31,33,35,39 ,45,51,52,56,58,5 9,66, and 68 is detected by district superintendent mediated amplification. High and intermediate risk HPV types are associated with most squamous intraepithelial lesions and cervical cancers. Testing was performed on specimen [id number] and was resulted on 05/06/2024 1520 EDT by THANH, LAB INSTRUMENT RESULTS IN 05/06/2024 15:20 EDT [facility] Performing Lab [facility] 05/06/2024 15:20 T [facility] Scanned Images 05/06/2024 15:20 T [facility] Pap Test CERVIX UTERI STRUCTURE / Unknown 04/29/2024 13:10 EDT 04/30/2024 12:05 EDT Jaz Kc APRN PATHOLOGY ORDERAB LES [facility] [address] [place] [address] * (ABNORMAL) HUMAN PAPILLOMAVIRUS (HPV) DETECTION-HIGH RISK TYPES (04/29/2024 13:10 EDT) HPV other High Risk types, PCR Positive( A) Negative 05/06/2024 15:20 EDT [facility] Comment:E6 OR E7 mRNA from o ne or more types of HPV types 16,18,31,33,35,39,45,51,52,56,58,59,66, and 68 is detected by district superintendent mediated amplification. High and intermediate risk HPV types are associated with most squamous intraepithelial lesions and cervical cancers. Pap Test CERVIX UTERI STRUCTURE / Unknown 04/29/2024 13:10 EDT 05/05/2024 13:24 EDT Jaz Kc APRN MICROBIOLOGY - GE NERAL ORDERABLES [facility] [address] [place] [address] * HEPATITIS C AB W REFLEX TO HCV RNA BY PCR (02/15/2024 8:14 EDT) Hep C Antibody Negative Negative 02/16/2024 9:25 EDT [facility] Blood VENOUS BLOOD / Unknown 02/15/2024 8:14 EDT 02/15/2024 17:02 EDT Provider Outr Resulting Lab CHEMISTRY & BLOOD GAS ORDERABLES [facility] [address] [place] [address] from Last 3 Months or Most Recently Relevant to Health Maintenance
--- OUTSIDE RECORDS SUMMARY | 2024-07-23 13:37 | XMS_ITS | Encounter Summary ---
Author Organization [facility] Address [address] [place] [address] Care Team Providers Care Bull Chain Operator Name Role Phone Unavailable Primary Care Provider Unavailabl e Encounter Details Date Type Department Care Team (Late st Contact Info) Description 04/30/2024 Lab Requisition [facility] Pathology & Laboratory Medicine - [facility] [address] [place] [address] Jaz Kc, GRIDDLE COOK [address] [place] [phone] Encounter for other general examination Social History [...]
--- OUTSIDE RECORDS SUMMARY | 2024-07-23 13:37 | XMS_ITS | Encounter Summary ---
Author Organization [facility] Address [address] [place] [address] Care Team Providers Care Meat Counter Clerk Name Role Phone Unavailable Primary Care Provider Unavailabl e Encounter Details Date Type Department Care Team (Late st Contact Info) Description 02/08/2024 Lab Requisition [facility] Pathology & Laboratory Medicine - [facility] [address] [place] [address] Outr Resulting Lab, Provider Social History Tobacco [...] Quantiferon Interpretation Negative Negative 02/11/2024 13:40 EDT [facility] Comment:No interferon-gamma response to M. tuberculosis antigens was detected. ??Infection with M. tuberculosis is unlikely. A single negative result does not exclude infection with M. tuberculosis. ??In patients at high risk for M. tuberculosis infection, a second test should be considered. TB1 Ag minus Nil 0.00 IU/ml 02/11/20 13:40 EDT [facility] TB2 Ag minus Nil 0.00 IU/mL 02/11/20 13:40 EDT [facility] Blood VENOUS BLOOD / Unknown 02/07/2024 13:18 EDT 02/11/2024 13:39 EDT Provider Outr Resulting Lab IMMUNOLOGY A ND SEROLOGY ORDERABLES Performing Organization Address [facility] Co de Phone Number [facility] [address] [place] [address] * QUANTIFERON MITOGEN (PERFORMABLE) (02/07/2024 13:18 EDT) Blood VENOUS BLOOD / Unknown 02/07/2024 13:18 EDT 02/08/2024 17:22 EDT Provider Outr Resulting Lab IMMUNOLOGY A ND SEROLOGY ORDERABLES Performing Organization Address [facility] de Phone Number [facility] [address] [place] [address] * QUANTIFERON TB2 (PERFORMABLE) (02/07/2024 13:18 EDT) Blood VENOUS BLOOD / Unknown 02/07/2024 13:18 EDT 02/08/2024 17:22 EDT Provider Outr Resulting Lab IMMUNOLOGY A ND SEROLOGY ORDERABLES Performing Organization Address City/[facility] Co de Phone Number [facility] [address] [place] [address] * QUANTIFERON TB1 (PERFORMABLE) (02/07/2024 13:18 EDT) Blood VENOUS BLOOD / Unknown 02/07/2024 13:18 EDT 02/08/2024 17:22 EDT Provider Outr Resulting Lab IMMUNOLOGY A ND SEROLOGY ORDERABLES Performing Organization Address City/[facility] Co de Phone Number [facility] [address] [place] [address] * QUANTIFERON NIL (PERFORMABLE) (02/07/2024 13:18 EDT) Blood VENOUS BLOOD / Unknown 02/07/2024 13:18 EDT 02/08/2024 17:22 EDT Provider Outr Resulting Lab IMMUNOLOGY A ND SEROLOGY ORDERABLES Performing Organization Address [facility] Co de Phone Number [facility] [address] [place] [address] documented in this encounter Visit Diagnoses Not on filedocumented in this encounter
--- OUTSIDE RECORDS SUMMARY | 2024-07-23 13:37 | XMS_ITS | Encounter Summary ---
Author Organization [facility] Address [address] [place] [address] Care Team Providers Care Copra Processor Name Role Phone Unavailable Primary Care Provider Unavailabl e Encounter Details Date Type Department Care Team (Late st Contact Info) Description 02/15/2024 Lab Requisition [facility] Pathology & Laboratory Medicine - [facility] [address] [place], [place] [address] Outr Resulting Lab, Provider Social History Tobacco [...] C Antibody Negative Negative 02/16/2024 9:25 EDT [facility] Blood VENOUS BLOOD / Unknown 02/15/2024 8:14 EDT 02/15/2024 17:02 EDT Provider Outr Resulting Lab CHEMISTRY & BLOOD GAS ORDERABLES [facility] [address] [place], [place] [address] * TRANSFERRIN (02/15/2024 8:14 EDT) Transferrin 322 201 - 352 mg/dL 02/18/2024 8:31 EDT [facility] Blood VENOUS BLOOD / Unknown 02/15/2024 8:14 EDT 02/15/2024 17:02 EDT Provider Outr Resulting Lab CHEMISTRY & BLOOD GAS ORDERABLES [facility] [address] [place] [address] documented in this encounter Visit Diagnoses Not on filedocumented in this encounter
--- OUTSIDE RECORDS SUMMARY | 2024-07-28 15:23 | XMS_ITS | Encounter Summary ---
Author Organization [facility] Address [address] [place] [address] Care Team Providers Care Specimen Accessioner Name Role Phone Unavailable Primary Care Provider Unavailabl e Encounter Details Date Type Department Care Team (Late st Contact Info) Description 04/30/2024 Lab Requisition [facility] Pathology & Laboratory Medicine - [facility] [address] [place] [address] Jaz Kc, DERMATOLOGY SPECIALIST [address] [place] [phone] Encounter for other general examination Social History [...]
--- OUTSIDE RECORDS SUMMARY | 2024-07-28 15:23 | XMS_ITS | Encounter Summary ---
Author Organization [facility] Address [address] [place] [address] Care Team Providers Care Parachute/Combatant Diver Officer Name Role Phone Unavailable Primary Care Provider Unavailabl e Encounter Details Date Type Department Care Team (Late st Contact Info) Description 02/15/2024 Lab Requisition [facility] Pathology & Laboratory Medicine - [facility] [address] [place], [place] [id number] Outr Resulting Lab, Provider Social History Tobacco [...] C Antibody Negative Negative 02/16/2024 9:25 EDT [facility] Blood VENOUS BLOOD / Unknown 02/15/2024 8:14 EDT 02/15/2024 17:02 EDT Provider Outr Resulting Lab CHEMISTRY & BLOOD GAS ORDERABLES [facility] [address] [place], [place] [address] * TRANSFERRIN (02/15/2024 8:14 EDT) Transferrin 322 201 - 352 mg/dL 02/18/2024 8:31 EDT [facility] Blood VENOUS BLOOD / Unknown 02/15/2024 8:14 EDT 02/15/2024 17:02 EDT Provider Outr Resulting Lab CHEMISTRY & BLOOD GAS ORDERABLES [facility] [address] [place] [address] documented in this encounter Visit Diagnoses Not on filedocumented in this encounter
--- OUTSIDE RECORDS SUMMARY | 2024-07-28 15:23 | XMS_ITS | Referral Summary ---
Author Organization [facility] Address [address] [place] [address] Care Team Providers Care Lace Burn Out Tender Name Role Phone Unavailable Primary Care Provider Unavailabl e Encounters Date Type Department Care Team Description 04/30/2024 Lab Requisition [facility] Pathology & Laboratory [address] [address] Jaz Kc APRN Encounter for other general examination 04/30/2024 Lab Requisition [facility] Pathology & Laboratory [address] [address] Jaz Kc APRN Encounter for other general [...] System with Manual Evaluation 05/06/2024 15:20 EDT [facility] Specimen Adequacy Satisfactory for Evaluation - transformation zone component present 05/06/2024 15:20 EDT [facility] General Categorization Negative for intraepithelial lesion or malignancy 05/06/2024 15:20 EDT [facility] Descriptive Diagnosis 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 05/06/2024 15:20 EDT [facility] Attestation . 05/06/2024 15:20 EDT [facility] at 1520 Clinical History See below 05/06/20 15:20 EDT [facility] HPV The result for the Human Papillomavirus (HPV) Detection-High Risk Types is Positive . E6 OR E7 mRNA from one or more types of HPV types 16,18,31,33,35,39 ,45,51,52,56,58,5 9,66, and 68 is detected by woolen suiting shrinker mediated amplification. High and intermediate risk HPV types are associated with most squamous intraepithelial lesions and cervical cancers. Testing was performed on specimen [id number] and was resulted on 05/06/2024 1520 EDT by THANH, LAB INSTRUMENT RESULTS IN 05/06/2024 15:20 EDT [facility] Performing Lab [facility] 05/06/2024 15:20 T [facility] Scanned Images 05/06/2024 15:20 T [facility] Pap Test CERVIX UTERI STRUCTURE / Unknown 04/29/2024 13:10 EDT 04/30/2024 12:05 EDT Jaz Kc APRN PATHOLOGY ORDERAB LES [facility] [address] [place] [address] * (ABNORMAL) HUMAN PAPILLOMAVIRUS (HPV) DETECTION-HIGH RISK TYPES (04/29/2024 13:10 EDT) HPV other High Risk types, PCR Positive( A) Negative 05/06/2024 15:20 EDT [facility] Comment:E6 OR E7 mRNA from o ne or more types of HPV types 16,18,31,33,35,39,45,51,52,56,58,59,66, and 68 is detected by woolen suiting shrinker mediated amplification. High and intermediate risk HPV types are associated with most squamous intraepithelial lesions and cervical cancers. Pap Test CERVIX UTERI STRUCTURE / Unknown 04/29/2024 13:10 EDT 05/05/2024 13:24 EDT Jaz Kc APRN MICROBIOLOGY - GE NERAL ORDERABLES [facility] [address] [place] [address] * HEPATITIS C AB W REFLEX TO HCV RNA BY PCR (02/15/2024 8:14 EDT) Hep C Antibody Negative Negative 02/16/2024 9:25 EDT [facility] Blood VENOUS BLOOD / Unknown 02/15/2024 8:14 EDT 02/15/2024 17:02 EDT Provider Outr Resulting Lab CHEMISTRY & BLOOD GAS ORDERABLES [facility] [address] [place] [address] from Last 3 Months or Most Recently Relevant to Health Maintenance
--- OUTSIDE RECORDS SUMMARY | 2024-07-28 15:23 | XMS_ITS | Encounter Summary ---
Author Organization [facility] Address [address] [place] [address] Care Team Providers Care Bundle Cutter Name Role Phone Unavailable Primary Care Provider Unavailabl e Encounter Details Date Type Department Care Team (Late st Contact Info) Description 04/30/2024 Lab Requisition [facility] Pathology & Laboratory Medicine - [facility] [address] [place] [address] Jaz Kc, BROACHING MACHINE SET UP OPERATOR [address] [place] [phone] Encounter for other general examination [...] PCR Positive( A) Negative 05/06/2024 15:20 EDT [facility] Comment:E6 OR E7 mRNA from o ne or more types of HPV types 16,18,31,33,35,39,45,51,52,56,58,59,66, and 68 is detected by voyage management system operator mediated amplification. High and intermediate risk HPV types are associated with most squamous intraepithelial lesions and cervical cancers. Pap Test CERVIX UTERI STRUCTURE / Unknown 04/29/2024 13:10 EDT 05/05/2024 13:24 EDT [place] A De SMALL MICROBIOLOGY - GE NERAL ORDERABLES [facility] [address] [place] [address] * PAP TEST (04/29/2024 13:10 EDT) Specimens A. 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 05/06/2024 15:20 EDT [facility] Attestation . 05/06/2024 15:20 T [facility] at 1520 Clinical History See below 05/06/20 15:20 EDT [facility] HPV The result for the Human Papillomavirus (HPV) Detection-High Risk Types is Positive . E6 OR E7 mRNA from one or more types of HPV types 16,18,31,33,35,39 ,45,51,52,56,58,5 9,66, and 68 is detected by voyage management system operator mediated amplification. High and intermediate risk HPV types are associated with most squamous intraepithelial lesions and cervical cancers. Testing was performed on specimen [id number] and was resulted on 05/06/2024 1520 EDT by THANH, LAB INSTRUMENT RESULTS IN 05/06/2024 15:20 EDT [facility] Performing Lab [facility] 05/06/2024 15:20 EDT [facility] Scanned Images 05/06/2024 15:20 EDT [facility] Pap Test CERVIX UTERI STRUCTURE / Unknown 04/29/2024 13:10 EDT 04/30/2024 12:05 EDT Jaz Kc BROACHING MACHINE SET UP OPERATOR PATHOLOGY ORDERAB LES [facility] [address] [place] [address] documented in this encounter Visit Diagnoses Diagnosis Encounter for other general examination documented in this encounter
--- OUTSIDE RECORDS SUMMARY | 2024-07-28 15:23 | XMS_ITS | Encounter Summary ---
Author Organization [facility] Address [address] [place] [address] Care Team Providers Care Mash Grinder Name Role Phone Unavailable Primary Care Provider Unavailabl e Encounter Details Date Type Department Care Team (Late st Contact Info) Description 02/08/2024 Lab Requisition [facility] Pathology & Laboratory Medicine - [facility] [address] [place] [address] Outr Resulting Lab, Provider Social History Tobacco [...] Quantiferon Interpretation Negative Negative 02/11/2024 13:40 EDT [facility] Comment:No interferon-gamma response to M. tuberculosis antigens was detected. ??Infection with M. tuberculosis is unlikely. A single negative result does not exclude infection with M. tuberculosis. ??In patients at high risk for M. tuberculosis infection, a second test should be considered. TB1 Ag minus Nil 0.00 IU/ml 02/11/20 13:40 EDT [facility] TB2 Ag minus Nil 0.00 IU/mL 02/11/20 13:40 EDT [facility] Blood VENOUS BLOOD / Unknown 02/07/2024 13:18 EDT 02/11/2024 13:39 EDT Provider Outr Resulting Lab IMMUNOLOGY A ND SEROLOGY ORDERABLES Performing Organization Address [facility] Co de Phone Number [facility] [address] [place] [address] * QUANTIFERON MITOGEN (PERFORMABLE) (02/07/2024 13:18 EDT) Blood VENOUS BLOOD / Unknown 02/07/2024 13:18 EDT 02/08/2024 17:22 EDT Provider Outr Resulting Lab IMMUNOLOGY A ND SEROLOGY ORDERABLES Performing Organization Address [facility] de Phone Number [facility] [address] [place] [address] * QUANTIFERON TB2 (PERFORMABLE) (02/07/2024 13:18 EDT) Blood VENOUS BLOOD / Unknown 02/07/2024 13:18 EDT 02/08/2024 17:22 EDT Provider Outr Resulting Lab IMMUNOLOGY A ND SEROLOGY ORDERABLES Performing Organization Address City/[facility] Co de Phone Number [facility] [address] [place] [address] * QUANTIFERON TB1 (PERFORMABLE) (02/07/2024 13:18 EDT) Blood VENOUS BLOOD / Unknown 02/07/2024 13:18 EDT 02/08/2024 17:22 EDT Provider Outr Resulting Lab IMMUNOLOGY A ND SEROLOGY ORDERABLES Performing Organization Address City/[facility] Co de Phone Number [facility] [address] [place] [address] * QUANTIFERON NIL (PERFORMABLE) (02/07/2024 13:18 EDT) Blood VENOUS BLOOD / Unknown 02/07/2024 13:18 EDT 02/08/2024 17:22 EDT Provider Outr Resulting Lab IMMUNOLOGY A ND SEROLOGY ORDERABLES Performing Organization Address [facility] Co de Phone Number [facility] [address] [place] [address] documented in this encounter Visit Diagnoses Not on filedocumented in this encounter
--- OUTSIDE RECORDS SUMMARY | 2024-07-28 15:23 | XMS_ITS | Clinical Summary ---
Author Organization Health system Address [address] [place] [address] Care Team Providers Care Seat Covers Trimmer Name Role Phone Unavailable Primary Care Provider Unavailabl e Encounters Date Type Department Care Team Description 04/30/2024 Lab Requisition [facility] Pathology & Laboratory [address] [address] Jaz Kc APRN Encounter for other general examination 04/30/2024 Lab Requisition [facility] Pathology & Laboratory [address] [address] Jaz Kc APRN Encounter for other general [...] System with Manual Evaluation 05/06/2024 15:20 EDT [facility] Specimen Adequacy Satisfactory for Evaluation - transformation zone component present 05/06/2024 15:20 EDT [facility] General Categorization Negative for intraepithelial lesion or malignancy 05/06/2024 15:20 T [facility] Descriptive Diagnosis 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 05/06/2024 15:20 T [facility] Attestation . 05/06/2024 15:20 T [facility] at 1520 Clinical History See below 05/06/20 15:20 T [facility] HPV The result for the Human Papillomavirus (HPV) Detection-High Risk Types is Positive . E6 OR E7 mRNA from one or more types of HPV types 16,18,31,33,35,39 ,45,51,52,56,58,5 9,66, and 68 is detected by instant printer operator mediated amplification. High and intermediate risk HPV types are associated with most squamous intraepithelial lesions and cervical cancers. Testing was performed on specimen [id number] and was resulted on 05/06/2024 1520 EDT by THANH, LAB INSTRUMENT RESULTS IN 05/06/2024 15:20 EDT [facility] Performing Lab [facility] 05/06/2024 15:20 EDT [facility] Scanned Images 05/06/2024 15:20 T [facility] Pap Test CERVIX UTERI STRUCTURE / Unknown 04/29/2024 13:10 EDT 04/30/2024 12:05 EDT Jaz Kc APRN PATHOLOGY ORDERAB LES [facility] [address] [place] [address] * (ABNORMAL) HUMAN PAPILLOMAVIRUS (HPV) DETECTION-HIGH RISK TYPES (04/29/2024 13:10 EDT) HPV other High Risk types, PCR Positive( A) Negative 05/06/2024 15:20 EDT [facility] Comment:E6 OR E7 mRNA from o ne or more types of HPV types 16,18,31,33,35,39,45,51,52,56,58,59,66, and 68 is detected by instant printer operator mediated amplification. High and intermediate risk HPV types are associated with most squamous intraepithelial lesions and cervical cancers. Pap Test CERVIX UTERI STRUCTURE / Unknown 04/29/2024 13:10 EDT 05/05/2024 13:24 EDT Jaz Kc NCA CERTIFIED CONCIERGE MICROBIOLOGY - GE NERAL ORDERABLES [facility] [address] [place] [address] * HEPATITIS C AB W REFLEX TO HCV RNA BY PCR (02/15/2024 8:14 EDT) Hep C Antibody Negative Negative 02/16/2024 9:25 EDT [facility] Blood VENOUS BLOOD / Unknown 02/15/2024 8:14 EDT 02/15/2024 17:02 EDT Provider Outr Resulting Lab CHEMISTRY & BLOOD GAS ORDERABLES [facility] [address] [place] [address] from Last 3 Months or Most Recently Relevant to Health Maintenance
--- OUTSIDE RECORDS SUMMARY | 2024-07-30 13:09 | XMS_ITS | Clinical Summary ---
Author Organization [facility] Address [address] [place] [address] Care Team Providers Care Pipe Testing Technician Name Role Phone Unavailable Primary Care Provider Unavailabl e Encounters Date Type Department Care Team Description 04/30/2024 Lab Requisition [facility] Pathology & Laboratory [address] [address] Jaz Kc APRN Encounter for other general examination 04/30/2024 Lab Requisition [facility] Pathology & Laboratory [address] [address] Jaz Kc APRN Encounter for other general [...] System with Manual Evaluation 05/06/2024 15:20 EDT [facility] Specimen Adequacy Satisfactory for Evaluation - transformation zone component present 05/06/2024 15:20 EDT [facility] General Categorization Negative for intraepithelial lesion or malignancy 05/06/2024 15:20 T [facility] Descriptive Diagnosis 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 05/06/2024 15:20 T [facility] Attestation . 05/06/2024 15:20 T [facility] at 1520 Clinical History See below 05/06/20 15:20 T [facility] HPV The result for the Human Papillomavirus (HPV) Detection-High Risk Types is Positive . E6 OR E7 mRNA from one or more types of HPV types 16,18,31,33,35,39 ,45,51,52,56,58,5 9,66, and 68 is detected by rn angiography mediated amplification. High and intermediate risk HPV types are associated with most squamous intraepithelial lesions and cervical cancers. Testing was performed on specimen [id number] and was resulted on 05/06/2024 1520 EDT by THANH, LAB INSTRUMENT RESULTS IN 05/06/2024 15:20 EDT [facility] Performing Lab [facility] 05/06/2024 15:20 EDT [facility] Scanned Images 05/06/2024 15:20 T [facility] Pap Test CERVIX UTERI STRUCTURE / Unknown 04/29/2024 13:10 EDT 04/30/2024 12:05 EDT Jaz Kc APRN PATHOLOGY ORDERAB LES [facility] [address] [place] [address] * (ABNORMAL) HUMAN PAPILLOMAVIRUS (HPV) DETECTION-HIGH RISK TYPES (04/29/2024 13:10 EDT) HPV other High Risk types, PCR Positive( A) Negative 05/06/2024 15:20 EDT [facility] Comment:E6 OR E7 mRNA from o ne or more types of HPV types 16,18,31,33,35,39,45,51,52,56,58,59,66, and 68 is detected by rn angiography mediated amplification. High and intermediate risk HPV types are associated with most squamous intraepithelial lesions and cervical cancers. Pap Test CERVIX UTERI STRUCTURE / Unknown 04/29/2024 13:10 EDT 05/05/2024 13:24 EDT Jaz Kc MANAGER RESPIRATORY CARE MICROBIOLOGY - GE NERAL ORDERABLES [facility] [address] [place] [address] * HEPATITIS C AB W REFLEX TO HCV RNA BY PCR (02/15/2024 8:14 EDT) Hep C Antibody Negative Negative 02/16/2024 9:25 EDT [facility] Blood VENOUS BLOOD / Unknown 02/15/2024 8:14 EDT 02/15/2024 17:02 EDT Provider Outr Resulting Lab CHEMISTRY & BLOOD GAS ORDERABLES [facility] [address] [place] [address] from Last 3 Months or Most Recently Relevant to Health Maintenance
--- OUTSIDE RECORDS SUMMARY | 2024-07-30 13:09 | XMS_ITS | Encounter Summary ---
Author Organization [facility] Address [address] [place] [address] Care Team Providers Care Car Conditioner Name Role Phone Unavailable Primary Care Provider Unavailabl e Encounter Details Date Type Department Care Team (Late st Contact Info) Description 02/15/2024 Lab Requisition [facility] Pathology & Laboratory Medicine - [facility] [address] [place], [place] [address] Outr Resulting Lab, Provider Social History Tobacco [...] C Antibody Negative Negative 02/16/2024 9:25 EDT [facility] Blood VENOUS BLOOD / Unknown 02/15/2024 8:14 EDT 02/15/2024 17:02 EDT Provider Outr Resulting Lab CHEMISTRY & BLOOD GAS ORDERABLES [facility] [address] [place], [place] [address] * TRANSFERRIN (02/15/2024 8:14 EDT) Transferrin 322 201 - 352 mg/dL 02/18/2024 8:31 EDT [facility] Blood VENOUS BLOOD / Unknown 02/15/2024 8:14 EDT 02/15/2024 17:02 EDT Provider Outr Resulting Lab CHEMISTRY & BLOOD GAS ORDERABLES [facility] [address] [place] [address] documented in this encounter Visit Diagnoses Not on filedocumented in this encounter
--- OUTSIDE RECORDS SUMMARY | 2024-07-30 13:09 | XMS_ITS | Referral Summary ---
Author Organization [facility] Address [address] [place] [address] Care Team Providers Care Outdoor Emergency Care Technician Name Role Phone Unavailable Primary Care Provider Unavailabl e Encounters Date Type Department Care Team Description 04/30/2024 Lab Requisition [facility] Pathology & Laboratory [address] [address] Jaz Kc APRN Encounter for other general examination 04/30/2024 Lab Requisition [facility] Pathology & Laboratory [address] [address] Jaz Kc APRN Encounter for other general [...] System with Manual Evaluation 05/06/2024 15:20 EDT [facility] Specimen Adequacy Satisfactory for Evaluation - transformation zone component present 05/06/2024 15:20 EDT [facility] General Categorization Negative for intraepithelial lesion or malignancy 05/06/2024 15:20 EDT [facility] Descriptive Diagnosis 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 05/06/2024 15:20 EDT [facility] Attestation . 05/06/2024 15:20 EDT [facility] at 1520 Clinical History See below 05/06/20 15:20 EDT [facility] HPV The result for the Human Papillomavirus (HPV) Detection-High Risk Types is Positive . E6 OR E7 mRNA from one or more types of HPV types 16,18,31,33,35,39 ,45,51,52,56,58,5 9,66, and 68 is detected by horticultural therapist mediated amplification. High and intermediate risk HPV types are associated with most squamous intraepithelial lesions and cervical cancers. Testing was performed on specimen [id number] and was resulted on 05/06/2024 1520 EDT by THANH, LAB INSTRUMENT RESULTS IN 05/06/2024 15:20 EDT [facility] Performing Lab [facility] 05/06/2024 15:20 T [facility] Scanned Images 05/06/2024 15:20 T [facility] Pap Test CERVIX UTERI STRUCTURE / Unknown 04/29/2024 13:10 EDT 04/30/2024 12:05 EDT Jaz Kc APRN PATHOLOGY ORDERAB LES [facility] [address] [place] [address] * (ABNORMAL) HUMAN PAPILLOMAVIRUS (HPV) DETECTION-HIGH RISK TYPES (04/29/2024 13:10 EDT) HPV other High Risk types, PCR Positive( A) Negative 05/06/2024 15:20 EDT [facility] Comment:E6 OR E7 mRNA from o ne or more types of HPV types 16,18,31,33,35,39,45,51,52,56,58,59,66, and 68 is detected by horticultural therapist mediated amplification. High and intermediate risk HPV types are associated with most squamous intraepithelial lesions and cervical cancers. Pap Test CERVIX UTERI STRUCTURE / Unknown 04/29/2024 13:10 EDT 05/05/2024 13:24 EDT Jaz Kc APRN MICROBIOLOGY - GE NERAL ORDERABLES [facility] [address] [place] [address] * HEPATITIS C AB W REFLEX TO HCV RNA BY PCR (02/15/2024 8:14 EDT) Hep C Antibody Negative Negative 02/16/2024 9:25 EDT [facility] Blood VENOUS BLOOD / Unknown 02/15/2024 8:14 EDT 02/15/2024 17:02 EDT Provider Outr Resulting Lab CHEMISTRY & BLOOD GAS ORDERABLES [facility] [address] [place] [address] from Last 3 Months or Most Recently Relevant to Health Maintenance
--- OUTSIDE RECORDS SUMMARY | 2024-07-30 13:09 | XMS_ITS | Encounter Summary ---
Author Organization [facility] Address [address] [place] [address] Care Team Providers Care Precision Lens Generator Name Role Phone Unavailable Primary Care Provider Unavailabl e Encounter Details Date Type Department Care Team (Late st Contact Info) Description 04/30/2024 Lab Requisition [facility] Pathology & Laboratory Medicine - [facility] [address] [place] [address] Jaz Kc, SHAPE CARVER [address] [place] [phone] Encounter for other general examination Social History [...]
--- OUTSIDE RECORDS SUMMARY | 2024-07-30 13:09 | XMS_ITS | Encounter Summary ---
Author Organization [facility] Address [address] [place] [address] Care Team Providers Care Knitter Machine Name Role Phone Unavailable Primary Care Provider Unavailabl e Encounter Details Date Type Department Care Team (Late st Contact Info) Description 04/30/2024 Lab Requisition [facility] Pathology & Laboratory Medicine - [facility] [address] [place] [address] Jaz Kc, SCRUMMASTER [address] [place] [address] Encounter for other general examination [...] PCR Positive( A) Negative 05/06/2024 15:20 EDT [facility] Comment:E6 OR E7 mRNA from o ne or more types of HPV types 16,18,31,33,35,39,45,51,52,56,58,59,66, and 68 is detected by beater tender mediated amplification. High and intermediate risk HPV types are associated with most squamous intraepithelial lesions and cervical cancers. Pap Test CERVIX UTERI STRUCTURE / Unknown 04/29/2024 13:10 EDT 05/05/2024 13:24 EDT [place] [facility] MICROBIOLOGY - GE NERAL ORDERABLES [facility] [address] [place] [address] * PAP TEST (04/29/2024 13:10 EDT) Specimens A. Cervix and/or Endocervix , ThinPrep Imaging System with Manual Evaluation 05/06/2024 15:20 EDT [facility] Specimen Adequacy Satisfactory for Evaluation - transformation zone component present 05/06/2024 15:20 EDT [facility] General Categorization Negative for intraepithelial lesion or malignancy 05/06/2024 15:20 T [facility] Descriptive Diagnosis 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 05/06/2024 15:20 EDT [facility] Attestation . 05/06/2024 15:20 T [facility] at 1520 Clinical History See below 05/06/20 15:20 EDT [facility] HPV The result for the Human Papillomavirus (HPV) Detection-High Risk Types is Positive . E6 OR E7 mRNA from one or more types of HPV types 16,18,31,33,35,39 ,45,51,52,56,58,5 9,66, and 68 is detected by beater tender mediated amplification. High and intermediate risk HPV types are associated with most squamous intraepithelial lesions and cervical cancers. Testing was performed on specimen [id number] and was resulted on 05/06/2024 1520 EDT by TAHNH, LAB INSTRUMENT RESULTS IN 05/06/2024 15:20 EDT [facility] Performing Lab [facility] 05/06/2024 15:20 EDT [facility] Scanned Images 05/06/2024 15:20 EDT [facility] Pap Test CERVIX UTERI STRUCTURE / Unknown 04/29/2024 13:10 EDT 04/30/2024 12:05 EDT Jaz Kc SCRUMMASTER PATHOLOGY ORDERAB LES [facility] [address] [place] [address] documented in this encounter Visit Diagnoses Diagnosis Encounter for other general examination documented in this encounter
--- OUTSIDE RECORDS SUMMARY | 2024-07-30 13:10 | XMS_ITS | Encounter Summary ---
Author Organization [facility] Address [address] [place] [address] Care Team Providers Care Fundraiser Name Role Phone Unavailable Primary Care Provider Unavailabl e Encounter Details Date Type Department Care Team (Late st Contact Info) Description 02/08/2024 Lab Requisition [facility] Pathology & Laboratory Medicine - [facility] [address] [place] [address] Outr Resulting Lab, Provider Social History Tobacco [...] Quantiferon Interpretation Negative Negative 02/11/2024 13:40 EDT [facility] Comment:No interferon-gamma response to M. tuberculosis antigens was detected. ??Infection with M. tuberculosis is unlikely. A single negative result does not exclude infection with M. tuberculosis. ??In patients at high risk for M. tuberculosis infection, a second test should be considered. TB1 Ag minus Nil 0.00 IU/ml 02/11/20 13:40 EDT [facility] TB2 Ag minus Nil 0.00 IU/mL 02/11/20 13:40 EDT [facility] Blood VENOUS BLOOD / Unknown 02/07/2024 13:18 EDT 02/11/2024 13:39 EDT Provider Outr Resulting Lab IMMUNOLOGY A ND SEROLOGY ORDERABLES Performing Organization Address [facility] Co de Phone Number [facility] [address] [place] [address] * QUANTIFERON MITOGEN (PERFORMABLE) (02/07/2024 13:18 EDT) Blood VENOUS BLOOD / Unknown 02/07/2024 13:18 EDT 02/08/2024 17:22 EDT Provider Outr Resulting Lab IMMUNOLOGY A ND SEROLOGY ORDERABLES Performing Organization Address [facility] de Phone Number [facility] [address] [place] [address] * QUANTIFERON TB2 (PERFORMABLE) (02/07/2024 13:18 EDT) Blood VENOUS BLOOD / Unknown 02/07/2024 13:18 EDT 02/08/2024 17:22 EDT Provider Outr Resulting Lab IMMUNOLOGY A ND SEROLOGY ORDERABLES Performing Organization Address City/[facility] Co de Phone Number [facility] [address] [place] [address] * QUANTIFERON TB1 (PERFORMABLE) (02/07/2024 13:18 EDT) Blood VENOUS BLOOD / Unknown 02/07/2024 13:18 EDT 02/08/2024 17:22 EDT Provider Outr Resulting Lab IMMUNOLOGY A ND SEROLOGY ORDERABLES Performing Organization Address City/[facility] Co de Phone Number [facility] [address] [place] [address] * QUANTIFERON NIL (PERFORMABLE) (02/07/2024 13:18 EDT) Blood VENOUS BLOOD / Unknown 02/07/2024 13:18 EDT 02/08/2024 17:22 EDT Provider Outr Resulting Lab IMMUNOLOGY A ND SEROLOGY ORDERABLES Performing Organization Address [facility] Co de Phone Number [facility] [address] [place] [address] documented in this encounter Visit Diagnoses Not on filedocumented in this encounter
--- OUTSIDE RECORDS SUMMARY | 2024-08-01 14:11 | XMS_ITS | Encounter Summary ---
Author Organization [facility] Address [address] [place] [address] Care Team Providers Care Rat Farmer Name Role Phone Unavailable Primary Care Provider Unavailabl e Encounter Details Date Type Department Care Team (Late st Contact Info) Description 02/08/2024 Lab Requisition [facility] Pathology & Laboratory Medicine - [facility] [address] [place] [address] Outr Resulting Lab, Provider Social History Tobacco [...] Quantiferon Interpretation Negative Negative 02/11/2024 13:[address] [facility] Comment:No interferon-gamma response to M. tuberculosis antigens was detected. ??Infection with M. tuberculosis is unlikely. A single negative result does not exclude infection with M. tuberculosis. ??In patients at high risk for M. tuberculosis infection, a second test should be considered. TB1 Ag minus Nil 0.00 IU/ml 02/11/20 13:[address] [facility] TB2 Ag minus Nil 0.00 IU/mL 02/11/20 13:[address] [facility] Blood VENOUS BLOOD / Unknown 02/07/2024 13:18 EDT 02/11/2024 13:39 EDT Provider Outr Resulting Lab IMMUNOLOGY A ND SEROLOGY ORDERABLES Performing Organization Address [facility] Co de Phone Number [facility] [address] [place] [address] * QUANTIFERON MITOGEN (PERFORMABLE) (02/07/2024 13:18 EDT) Blood VENOUS BLOOD / Unknown 02/07/2024 13:18 EDT 02/08/2024 17:22 EDT Provider Outr Resulting Lab IMMUNOLOGY A ND SEROLOGY ORDERABLES Performing Organization Address [facility] de Phone Number [facility] [address] [place] [address] * QUANTIFERON TB2 (PERFORMABLE) (02/07/2024 13:18 EDT) Blood VENOUS BLOOD / Unknown 02/07/2024 13:18 EDT 02/08/2024 17:22 EDT Provider Outr Resulting Lab IMMUNOLOGY A ND SEROLOGY ORDERABLES Performing Organization Address City/[facility] Co de Phone Number [facility] [address] [place] [address] * QUANTIFERON TB1 (PERFORMABLE) (02/07/2024 13:18 EDT) Blood VENOUS BLOOD / Unknown 02/07/2024 13:18 EDT 02/08/2024 17:22 EDT Provider Outr Resulting Lab IMMUNOLOGY A ND SEROLOGY ORDERABLES Performing Organization Address City/[facility] Co de Phone Number [facility] [address] [place] [address] * QUANTIFERON NIL (PERFORMABLE) (02/07/2024 13:18 EDT) Blood VENOUS BLOOD / Unknown 02/07/2024 13:18 EDT 02/08/2024 17:22 EDT Provider Outr Resulting Lab IMMUNOLOGY A ND SEROLOGY ORDERABLES Performing Organization Address [facility] Co de Phone Number [facility] [address] [place] [address] documented in this encounter Visit Diagnoses Not on filedocumented in this encounter
--- OUTSIDE RECORDS SUMMARY | 2024-08-01 14:11 | XMS_ITS | Encounter Summary ---
Author Organization [facility] Address [address] [place] [address] Care Team Providers Care Management Lead Name Role Phone Unavailable Primary Care Provider Unavailabl e Encounter Details Date Type Department Care Team (Late st Contact Info) Description 04/30/2024 Lab Requisition [facility] Pathology & Laboratory Medicine - [facility] [address] [place] [address] Jaz Kc, REPAIRER SASH AND DOOR [address] [place] [address] Encounter for other general examination [...] PCR Positive( A) Negative 05/06/2024 15:20 EDT [facility] Comment:E6 OR E7 mRNA from o ne or more types of HPV types 16,18,31,33,35,39,45,51,52,56,58,59,66, and 68 is detected by centrifugal wax molder mediated amplification. High and intermediate risk HPV types are associated with most squamous intraepithelial lesions and cervical cancers. Pap Test CERVIX UTERI STRUCTURE / Unknown 04/29/2024 13:10 EDT 05/05/2024 13:24 EDT [place] SMALL MICROBIOLOGY - GE NERAL ORDERABLES [facility] [address] [place] [address] * PAP TEST (04/29/2024 13:10 EDT) Specimens A. Cervix and/or Endocervix , ThinPrep Imaging System with Manual Evaluation 05/06/2024 15:20 EDT [facility] Specimen Adequacy Satisfactory for Evaluation - transformation zone component present 05/06/2024 15:20 EDT [facility] General Categorization Negative for intraepithelial lesion or malignancy 05/06/2024 15:20 T [facility] Descriptive Diagnosis 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 05/06/2024 15:20 EDT [facility] Attestation . 05/06/2024 15:20 T [facility] at 1520 Clinical History See below 05/06/20 15:20 EDT [facility] HPV The result for the Human Papillomavirus (HPV) Detection-High Risk Types is Positive . E6 OR E7 mRNA from one or more types of HPV types 16,18,31,33,35,39 ,45,51,52,56,58,5 9,66, and 68 is detected by centrifugal wax molder mediated amplification. High and intermediate risk HPV types are associated with most squamous intraepithelial lesions and cervical cancers. Testing was performed on specimen [id number] and was resulted on 05/06/2024 1520 EDT by THANH, LAB INSTRUMENT RESULTS IN 05/06/2024 15:20 EDT [facility] Performing Lab [facility] 05/06/2024 15:20 EDT [facility] Scanned Images 05/06/2024 15:20 EDT [facility] Pap Test CERVIX UTERI STRUCTURE / Unknown 04/29/2024 13:10 EDT 04/30/2024 12:05 EDT Jaz Kc REPAIRER SASH AND DOOR PATHOLOGY ORDERAB LES [facility] [address] [place] [address] documented in this encounter Visit Diagnoses Diagnosis Encounter for other general examination documented in this encounter
--- OUTSIDE RECORDS SUMMARY | 2024-08-01 14:11 | XMS_ITS | Encounter Summary ---
Author Organization [facility] Address [address] [place] [address] Care Team Providers Care Performance Solutions Specialist Name Role Phone Unavailable Primary Care Provider Unavailabl e Encounter Details Date Type Department Care Team (Late st Contact Info) Description 02/15/2024 Lab Requisition [facility] Pathology & Laboratory Medicine - [facility] [address] [place], [place] [address] Outr Resulting Lab, Provider Social History Tobacco [...] C Antibody Negative Negative 02/16/2024 9:25 EDT [facility] Blood VENOUS BLOOD / Unknown 02/15/2024 8:14 EDT 02/15/2024 17:02 EDT Provider Outr Resulting Lab CHEMISTRY & BLOOD GAS ORDERABLES [facility] [address] [place], [place] [address] * TRANSFERRIN (02/15/2024 8:14 EDT) Transferrin 322 201 - 352 mg/dL 02/18/2024 8:31 EDT [facility] Blood VENOUS BLOOD / Unknown 02/15/2024 8:14 EDT 02/15/2024 17:02 EDT Provider Outr Resulting Lab CHEMISTRY & BLOOD GAS ORDERABLES [facility] [address] [place] [address] documented in this encounter Visit Diagnoses Not on filedocumented in this encounter
--- OUTSIDE RECORDS SUMMARY | 2024-08-01 14:11 | XMS_ITS | Referral Summary ---
Author Organization [facility] Address [address] [place] [id number] Care Team Providers Care Bevel Gear Generator Operator Name Role Phone Unavailable Primary Care Provider Unavailabl e Social History Tobacco Use Types Packs/Day Years [...] Recently Relevant to Health Maintenance Results * HEPATITIS C AB W REFLEX TO HCV RNA BY PCR (02/15/2024 8:14 EDT) Hep C Antibody Negative Negative 02/16/2024 9:25 EDT [facility] Blood VENOUS BLOOD / Unknown 02/15/2024 8:14 EDT 02/15/2024 17:02 EDT Provider Outr Resulting Lab CHEMISTRY & BLOOD GAS ORDERABLES [facility] [address] [place] [address] from Last 3 Months or Most Recently Relevant to Health Maintenance
--- OUTSIDE RECORDS SUMMARY | 2024-08-01 14:11 | XMS_ITS | Clinical Summary ---
Author Organization [facility] Address [address] [place] [address] Care Team Providers Care Scientific Helper Name Role Phone Unavailable Primary Care Provider [...] - 19+ 3-dose series) 09/24 COVID-19 Vaccine (2022- season) 2023 Hepatitis C Screen Completed 02/15/2024 [...] [facility] [address] [place] [address] from Last 3 Months or Most Recently Relevant to Health Maintenance
--- OUTSIDE RECORDS SUMMARY | 2024-08-01 14:11 | XMS_ITS | Encounter Summary ---
Author Organization [facility] Address [address] [place] [address] Care Team Providers Care Fruit And Vegetable Classer Name Role Phone Unavailable Primary Care Provider Unavailabl e Encounter Details Date Type Department Care Team (Late st Contact Info) Description 04/30/2024 Lab Requisition [facility] Pathology & Laboratory Medicine - [facility] [address] [place] [address] Jaz Kc, TELEPHONE DIAPHRAGM ASSEMBLER [address] [phone] Encounter for other general examination Social History [...]
--- OUTSIDE RECORDS SUMMARY | 2024-08-04 14:57 | XMS_ITS | Clinical Summary ---
Author Organization [facility] Address [address] [place] [address] Care Team Providers Care Heater Mechanic Name Role Phone Unavailable Primary Care Provider [...] C Antibody Negative Negative 02/16/2024 9:25 EDT [facility] Blood VENOUS BLOOD / Unknown 02/15/2024 8:14 EDT 02/15/2024 17:02 EDT Provider Outr Resulting Lab CHEMISTRY & BLOOD GAS ORDERABLES [facility] [address] [place] [address] from Last 3 Months or Most Recently Relevant to Health Maintenance
--- OUTSIDE RECORDS SUMMARY | 2024-08-04 14:57 | XMS_ITS | Encounter Summary ---
Author Organization [facility] Address [address] [place] [address] Care Team Providers Care Mechanical Engineering Draftsperson Name Role Phone Unavailable Primary Care Provider Unavailabl e Encounter Details Date Type Department Care Team (Late st Contact Info) Description 02/15/2024 Lab Requisition [facility] Pathology & Laboratory Medicine - [facility] [address] [place], [place] [address] Outr Resulting Lab, Provider Social History Tobacco [...] C Antibody Negative Negative 02/16/2024 9:25 EDT [facility] Blood VENOUS BLOOD / Unknown 02/15/2024 8:14 EDT 02/15/2024 17:02 EDT Provider Outr Resulting Lab CHEMISTRY & BLOOD GAS ORDERABLES [facility] [address] [place], [place] [address] * TRANSFERRIN (02/15/2024 8:14 EDT) Transferrin 322 201 - 352 mg/dL 02/18/2024 8:31 EDT [facility] Blood VENOUS BLOOD / Unknown 02/15/2024 8:14 EDT 02/15/2024 17:02 EDT Provider Outr Resulting Lab CHEMISTRY & BLOOD GAS ORDERABLES [facility] [address] [place] [address] documented in this encounter Visit Diagnoses Not on filedocumented in this encounter
--- OUTSIDE RECORDS SUMMARY | 2024-08-04 14:57 | XMS_ITS | Encounter Summary ---
Author Organization [facility] Address [address] [place] [address] Care Team Providers Care Marine Engineer Cpvec Name Role Phone Unavailable Primary Care Provider Unavailabl e Encounter Details Date Type Department Care Team (Late st Contact Info) Description 04/30/2024 Lab Requisition [facility] Pathology & Laboratory Medicine - [facility] [address] [place] [address] Jaz Kc, CERTIFIED HOME HEALTH AIDE [address] [place] [address] Encounter for other general examination [...] Positive( A) Negative 05/06/2024 15:20 EDT [facility] Comment:E6 OR E7 mRNA from o ne or more types of HPV types 16,18,31,33,35,39,45,51,52,56,58,59,66, and 68 is detected by hospital medicine director mediated amplification. High and intermediate risk HPV types are associated with most squamous intraepithelial lesions and cervical cancers. Pap Test CERVIX UTERI STRUCTURE / Unknown 04/29/2024 13:10 EDT 05/05/2024 13:24 EDT [place] A De SMALL MICROBIOLOGY - GE NERAL ORDERABLES [facility] [address] [place] [address] * PAP TEST (04/29/2024 13:10 EDT) Specimens A. Cervix and/or Endocervix , ThinPrep Imaging System with Manual Evaluation 05/06/2024 15:20 EDT [facility] Specimen Adequacy Satisfactory for Evaluation - transformation zone component present 05/06/2024 15:20 EDT [facility] General Categorization Negative for intraepithelial lesion or malignancy 05/06/2024 15:20 T [facility] Descriptive Diagnosis 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 05/06/2024 15:20 EDT [facility] Attestation . 05/06/2024 15:20 T [facility] at 1520 Clinical History See below 05/06/20 15:20 EDT [facility] HPV The result for the Human Papillomavirus (HPV) Detection-High Risk Types is Positive . E6 OR E7 mRNA from one or more types of HPV types 16,18,31,33,35,39 ,45,51,52,56,58,5 9,66, and 68 is detected by hospital medicine director mediated amplification. High and intermediate risk HPV types are associated with most squamous intraepithelial lesions and cervical cancers. Testing was performed on specimen [id number] and was resulted on 05/06/2024 1520 EDT by THANH, LAB INSTRUMENT RESULTS IN 05/06/2024 15:20 EDT [facility] Performing Lab [facility] 05/06/2024 15:20 EDT [facility] Scanned Images 05/06/2024 15:20 EDT [facility] Pap Test CERVIX UTERI STRUCTURE / Unknown 04/29/2024 13:10 EDT 04/30/2024 12:05 EDT Jaz Kc CERTIFIED HOME HEALTH AIDE PATHOLOGY ORDERAB LES [facility] [address] [place] [address] documented in this encounter Visit Diagnoses Diagnosis Encounter for other general examination documented in this encounter
--- OUTSIDE RECORDS SUMMARY | 2024-08-04 14:57 | XMS_ITS | Encounter Summary ---
Author Organization [facility] Address [address] [place] [address] Care Team Providers Care Associate Director Of Sales Name Role Phone Unavailable Primary Care Provider Unavailabl e Encounter Details Date Type Department Care Team (Late st Contact Info) Description 04/30/2024 Lab Requisition [facility] Pathology & Laboratory Medicine - [facility] [address] [place] [address] Jaz Kc, CASH PROCESSING SPECIALIST [address] [place] [phone] Encounter for other general examination Social History [...]
--- OUTSIDE RECORDS SUMMARY | 2024-08-04 14:57 | XMS_ITS | Encounter Summary ---
Author Organization [facility] Address [address] [place] [address] Care Team Providers Care Embedded Linux Engineer Name Role Phone Unavailable Primary Care Provider Unavailabl e Encounter Details Date Type Department Care Team (Late st Contact Info) Description 02/08/2024 Lab Requisition [facility] Pathology & Laboratory Medicine - [facility] [address] [place] [address] Outr Resulting Lab, Provider Social History Tobacco [...] Quantiferon Interpretation Negative Negative 02/11/2024 13:40 EDT [facility] Comment:No interferon-gamma response to M. tuberculosis antigens was detected. ??Infection with M. tuberculosis is unlikely. A single negative result does not exclude infection with M. tuberculosis. ??In patients at high risk for M. tuberculosis infection, a second test should be considered. TB1 Ag minus Nil 0.00 IU/ml 02/11/20 13:40 EDT [facility] TB2 Ag minus Nil 0.00 IU/mL 02/11/20 13:40 EDT [facility] Blood VENOUS BLOOD / Unknown 02/07/2024 13:18 EDT 02/11/2024 13:39 EDT Provider Outr Resulting Lab IMMUNOLOGY A ND SEROLOGY ORDERABLES Performing Organization Address [facility] Co de Phone Number [facility] [address] [place] [address] * QUANTIFERON MITOGEN (PERFORMABLE) (02/07/2024 13:18 EDT) Blood VENOUS BLOOD / Unknown 02/07/2024 13:18 EDT 02/08/2024 17:22 EDT Provider Outr Resulting Lab IMMUNOLOGY A ND SEROLOGY ORDERABLES Performing Organization Address [facility] de Phone Number [facility] [address] [place] [address] * QUANTIFERON TB2 (PERFORMABLE) (02/07/2024 13:18 EDT) Blood VENOUS BLOOD / Unknown 02/07/2024 13:18 EDT 02/08/2024 17:22 EDT Provider Outr Resulting Lab IMMUNOLOGY A ND SEROLOGY ORDERABLES Performing Organization Address [facility] Co de Phone Number [facility] [address] [place] [address] * QUANTIFERON TB1 (PERFORMABLE) (02/07/2024 13:18 EDT) Blood VENOUS BLOOD / Unknown 02/07/2024 13:18 EDT 02/08/2024 17:22 EDT Provider Outr Resulting Lab IMMUNOLOGY A ND SEROLOGY ORDERABLES Performing Organization Address [facility] Co de Phone Number [facility] [address] [place] [address] * QUANTIFERON NIL (PERFORMABLE) (02/07/2024 13:18 EDT) Blood VENOUS BLOOD / Unknown 02/07/2024 13:18 EDT 02/08/2024 17:22 EDT Provider Outr Resulting Lab IMMUNOLOGY A ND SEROLOGY ORDERABLES Performing Organization Address [facility] Co de Phone Number [facility] [address] [place] [address] documented in this encounter Visit Diagnoses Not on filedocumented in this encounter
--- OUTSIDE RECORDS SUMMARY | 2024-08-04 14:57 | XMS_ITS | Referral Summary ---
Author Organization [facility] Address [address] [place] [id number] Care Team Providers Care Food And Beverage Assistant Name Role Phone Unavailable Primary Care Provider [...] C Antibody Negative Negative 02/16/2024 9:[address] [facility] Blood VENOUS BLOOD / Unknown 02/15/2024 8:14 EDT 02/15/2024 17:02 EDT Provider Outr Resulting Lab CHEMISTRY & BLOOD GAS ORDERABLES [facility] [address] [place] [address] from Last 3 Months or Most Recently Relevant to Health Maintenance
--- OUTSIDE RECORDS SUMMARY | 2024-08-06 14:40 | XMS_ITS | Encounter Summary ---
Author Organization [facility] Address [address] [place] [address] Care Team Providers Care Filing And Polishing Supervisor Name Role Phone Unavailable Primary Care Provider Unavailabl e Encounter Details Date Type Department Care Team (Late st Contact Info) Description 02/08/2024 Lab Requisition [facility] Pathology & Laboratory Medicine - [facility] [address] [place] [address] Outr Resulting Lab, Provider Social History Tobacco [...] Quantiferon Interpretation Negative Negative 02/11/2024 13:40 EDT [facility] Comment:No interferon-gamma response to M. tuberculosis antigens was detected. ??Infection with M. tuberculosis is unlikely. A single negative result does not exclude infection with M. tuberculosis. ??In patients at high risk for M. tuberculosis infection, a second test should be considered. TB1 Ag minus Nil 0.00 IU/ml 02/11/20 13:40 EDT [facility] TB2 Ag minus Nil 0.00 IU/mL 02/11/20 13:40 EDT [facility] Blood VENOUS BLOOD / Unknown 02/07/2024 13:18 EDT 02/11/2024 13:39 EDT Provider Outr Resulting Lab IMMUNOLOGY A ND SEROLOGY ORDERABLES Performing Organization Address [facility] Co de Phone Number [facility] [address] [place] [address] * QUANTIFERON MITOGEN (PERFORMABLE) (02/07/2024 13:18 EDT) Blood VENOUS BLOOD / Unknown 02/07/2024 13:18 EDT 02/08/2024 17:22 EDT Provider Outr Resulting Lab IMMUNOLOGY A ND SEROLOGY ORDERABLES Performing Organization Address [facility] de Phone Number [facility] [address] [place] [address] * QUANTIFERON TB2 (PERFORMABLE) (02/07/2024 13:18 EDT) Blood VENOUS BLOOD / Unknown 02/07/2024 13:18 EDT 02/08/2024 17:22 EDT Provider Outr Resulting Lab IMMUNOLOGY A ND SEROLOGY ORDERABLES Performing Organization Address [facility] Co de Phone Number [facility] [address] [place] [address] * QUANTIFERON TB1 (PERFORMABLE) (02/07/2024 13:18 EDT) Blood VENOUS BLOOD / Unknown 02/07/2024 13:18 EDT 02/08/2024 17:22 EDT Provider Outr Resulting Lab IMMUNOLOGY A ND SEROLOGY ORDERABLES Performing Organization Address [facility] Co de Phone Number [facility] [address] [place] [address] * QUANTIFERON NIL (PERFORMABLE) (02/07/2024 13:18 EDT) Blood VENOUS BLOOD / Unknown 02/07/2024 13:18 EDT 02/08/2024 17:22 EDT Provider Outr Resulting Lab IMMUNOLOGY A ND SEROLOGY ORDERABLES Performing Organization Address [facility] Co de Phone Number [facility] [address] [place] [address] documented in this encounter Visit Diagnoses Not on filedocumented in this encounter
--- OUTSIDE RECORDS SUMMARY | 2024-08-06 14:40 | XMS_ITS | Encounter Summary ---
Author Organization [facility] Address [address] [place] [address] Care Team Providers Care Bat Boy/Girl Name Role Phone Unavailable Primary Care Provider Unavailabl e Encounter Details Date Type Department Care Team (Late st Contact Info) Description 04/30/2024 Lab Requisition [facility] Pathology & Laboratory Medicine - [facility] [address] [place] [address] Jaz Kc, FURNACE PACKER [address] [place] [phone] Encounter for other general examination Social History [...]
--- OUTSIDE RECORDS SUMMARY | 2024-08-06 14:40 | XMS_ITS | Clinical Summary ---
Author Organization [facility] Address [address] [place] [address] Care Team Providers Care Senior Data Warehouse Architect Name Role Phone Unavailable Primary Care Provider [...] C Antibody Negative Negative 02/16/2024 9:25 EDT [facility] Blood VENOUS BLOOD / Unknown 02/15/2024 8:14 EDT 02/15/2024 17:02 EDT Provider Outr Resulting Lab CHEMISTRY & BLOOD GAS ORDERABLES [facility] [address] [place] [address] from Last 3 Months or Most Recently Relevant to Health Maintenance
--- OUTSIDE RECORDS SUMMARY | 2024-08-06 14:40 | XMS_ITS | Encounter Summary ---
Author Organization [facility] Address [address] [place] [address] Care Team Providers Care Agricultural Crop Farm Manager Name Role Phone Unavailable Primary Care Provider Unavailabl e Encounter Details Date Type Department Care Team (Late st Contact Info) Description 04/30/2024 Lab Requisition [facility] Pathology & Laboratory Medicine - [facility] [address] [place] [address] Jaz Kc, ELECTRICIAN'S ASSISTANT [address] [place] [address] Encounter for other general examination [...] PCR Positive( A) Negative 05/06/2024 15:20 EDT [facility] Comment:E6 OR E7 mRNA from o ne or more types of HPV types 16,18,31,33,35,39,45,51,52,56,58,59,66, and 68 is detected by paper pattern folder mediated amplification. High and intermediate risk HPV types are associated with most squamous intraepithelial lesions and cervical cancers. Pap Test CERVIX UTERI STRUCTURE / Unknown 04/29/2024 13:10 EDT 05/05/2024 13:24 EDT [place] A De SMALL MICROBIOLOGY - GE NERAL ORDERABLES [facility] [address] [place] [address] * PAP TEST (04/29/2024 13:10 EDT) Specimens A. 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 05/06/2024 15:20 EDT [facility] Attestation . 05/06/2024 15:20 T [facility] at 1520 Clinical History See below 05/06/20 15:20 EDT [facility] HPV The result for the Human Papillomavirus (HPV) Detection-High Risk Types is Positive . E6 OR E7 mRNA from one or more types of HPV types 16,18,31,33,35,39 ,45,51,52,56,58,5 9,66, and 68 is detected by paper pattern folder mediated amplification. High and intermediate risk HPV types are associated with most squamous intraepithelial lesions and cervical cancers. Testing was performed on specimen [id number] and was resulted on 05/06/2024 1520 EDT by THANH, LAB INSTRUMENT RESULTS IN 05/06/2024 15:20 EDT [facility] Performing Lab [facility] 05/06/2024 15:20 EDT [facility] Scanned Images 05/06/2024 15:20 EDT [facility] Pap Test CERVIX UTERI STRUCTURE / Unknown 04/29/2024 13:10 EDT 04/30/2024 12:05 EDT Jaz Kc ELECTRICIAN'S ASSISTANT PATHOLOGY ORDERAB LES [facility] [address] [place] [address] documented in this encounter Visit Diagnoses Diagnosis Encounter for other general examination documented in this encounter
--- OUTSIDE RECORDS SUMMARY | 2024-08-06 14:40 | XMS_ITS | Encounter Summary ---
Author Organization [facility] Address [address] [place] [address] Care Team Providers Care Monument Installer Name Role Phone Unavailable Primary Care Provider Unavailabl e Encounter Details Date Type Department Care Team (Late st Contact Info) Description 02/15/2024 Lab Requisition [facility] Pathology & Laboratory Medicine - [facility] [address] [place], [place] [id number] Outr Resulting Lab, Provider Social History Tobacco [...] C Antibody Negative Negative 02/16/2024 9:25 EDT [facility] Blood VENOUS BLOOD / Unknown 02/15/2024 8:14 EDT 02/15/2024 17:02 EDT Provider Outr Resulting Lab CHEMISTRY & BLOOD GAS ORDERABLES [facility] [address] [place], [place] [address] * TRANSFERRIN (02/15/2024 8:14 EDT) Transferrin 322 201 - 352 mg/dL 02/18/2024 8:31 EDT [facility] Blood VENOUS BLOOD / Unknown 02/15/2024 8:14 EDT 02/15/2024 17:02 EDT Provider Outr Resulting Lab CHEMISTRY & BLOOD GAS ORDERABLES [facility] [address] [place] [address] documented in this encounter Visit Diagnoses Not on filedocumented in this encounter
--- OUTSIDE RECORDS SUMMARY | 2024-08-06 14:40 | XMS_ITS | Referral Summary ---
Author Organization [facility] Address [address] [place] [address] Care Team Providers Care Med Care Manager Name Role Phone Unavailable Primary Care [...] Negative Negative 02/16/2024 9:25 EDT [facility] Blood VENOUS BLOOD / Unknown 02/15/2024 8:14 EDT 02/15/2024 17:02 EDT Provider Outr Resulting Lab CHEMISTRY & BLOOD GAS ORDERABLES [facility] [address] [place] [address] from Last 3 Months or Most Recently Relevant to Health Maintenance
== END 2024-08-11 23:59 | disposition home or self-care (01) ==
LOC: CR 13:00
PROVIDERS: PCP Nurse Practitioner Family; Visit Provider Internal Medicine Cardiovascular Disease
DX: I50.22 Chronic systolic (congestive) heart failure (principal); Z51.89 Encounter for other specified aftercare
CPT/HCPCS: S9472

== ENCOUNTER 2024-09-08 13:03 | Outpatient (RCR) | payer OTHER, SELFPAY ==
--- OUTSIDE RECORDS SUMMARY | 2024-08-27 13:01 | XMS_ITS | Encounter Summary ---
Author Organization [facility] Address [address] [place] [address] Care Team Providers Care Mica Machine Operator Name Role Phone Unavailable Primary Care Provider Unavailabl e Encounter Details Date Type Department Care Team (Late st Contact Info) Description 04/30/2024 Lab Requisition [facility] Pathology & Laboratory Medicine - [facility] [address] [place] [address] Jaz Kc, GERIATRIC NURSING ASSISTANT [address] [place] [address] Encounter for other general examination [...] PCR Positive( A) Negative 05/06/2024 15:20 EDT [facility] Comment:E6 OR E7 mRNA from o ne or more types of HPV types 16,18,31,33,35,39,45,51,52,56,58,59,66, and 68 is detected by solderer electronic mediated amplification. High and intermediate risk HPV types are associated with most squamous intraepithelial lesions and cervical cancers. Pap Test CERVIX UTERI STRUCTURE / Unknown 04/29/2024 13:10 EDT 05/05/2024 13:24 EDT [place] [facility] MICROBIOLOGY - GE NERAL ORDERABLES [facility] [address] [place] [address] * PAP TEST (04/29/2024 13:10 EDT) Specimens A. 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 05/06/2024 15:20 EDT [facility] Attestation . 05/06/2024 15:20 T [facility] at 1520 Clinical History See below 05/06/20 15:20 EDT [facility] HPV The result for the Human Papillomavirus (HPV) Detection-High Risk Types is Positive . E6 OR E7 mRNA from one or more types of HPV types 16,18,31,33,35,39 ,45,51,52,56,58,5 9,66, and 68 is detected by solderer electronic mediated amplification. High and intermediate risk HPV types are associated with most squamous intraepithelial lesions and cervical cancers. Testing was performed on specimen [id number] and was resulted on 05/06/2024 1520 EDT by THANH, LAB INSTRUMENT RESULTS IN 05/06/2024 15:20 EDT [facility] Performing Lab [facility] 05/06/2024 15:20 EDT [facility] Scanned Images 05/06/2024 15:20 EDT [facility] Pap Test CERVIX UTERI STRUCTURE / Unknown 04/29/2024 13:10 EDT 04/30/2024 12:05 EDT Jaz Kc GERIATRIC NURSING ASSISTANT PATHOLOGY ORDERAB LES [facility] [address] [place] [address] documented in this encounter Visit Diagnoses Diagnosis Encounter for other general examination documented in this encounter
--- OUTSIDE RECORDS SUMMARY | 2024-08-27 13:01 | XMS_ITS | Encounter Summary ---
Author Organization [facility] Address [address] [place] [address] Care Team Providers Care Matrix Repairer Name Role Phone Unavailable Primary Care Provider Unavailabl e Encounter Details Date Type Department Care Team (Late st Contact Info) Description 04/30/2024 Lab Requisition [facility] Pathology & Laboratory Medicine - [facility] [address] [place] [address] Jaz Kc, IMAGING SERVICES DIRECTOR [address] [place] [phone] Encounter for other general examination Social History [...]
--- OUTSIDE RECORDS SUMMARY | 2024-08-27 13:01 | XMS_ITS | Encounter Summary ---
Author Organization [facility] Address [address] [place] [address] Care Team Providers Care Assembler Rubber Footwear Name Role Phone Unavailable Primary Care Provider Unavailabl e Encounter Details Date Type Department Care Team (Late st Contact Info) Description 02/15/2024 Lab Requisition [facility] Pathology & Laboratory Medicine - [facility] [address] [place], [place] [phone] Outr Resulting Lab, Provider Social History Tobacco [...] C Antibody Negative Negative 02/16/2024 9:25 EDT [facility] Blood VENOUS BLOOD / Unknown 02/15/2024 8:14 EDT 02/15/2024 17:02 EDT Provider Outr Resulting Lab CHEMISTRY & BLOOD GAS ORDERABLES [facility] [address] [place], [place] [address] * TRANSFERRIN (02/15/2024 8:14 EDT) Transferrin 322 201 - 352 mg/dL 02/18/2024 8:31 EDT [facility] Blood VENOUS BLOOD / Unknown 02/15/2024 8:14 EDT 02/15/2024 17:02 EDT Provider Outr Resulting Lab CHEMISTRY & BLOOD GAS ORDERABLES [facility] [address] [place] [address] documented in this encounter Visit Diagnoses Not on filedocumented in this encounter
--- OUTSIDE RECORDS SUMMARY | 2024-08-27 13:01 | XMS_ITS | Referral Summary ---
Author Organization [facility] Address [address] [place] [address] Care Team Providers Care Body Shop Manager Name Role Phone Unavailable Primary Care [...] C Antibody Negative Negative 02/16/2024 9:25 EDT [facility] Blood VENOUS BLOOD / Unknown 02/15/2024 8:14 EDT 02/15/2024 17:02 EDT Provider Outr Resulting Lab CHEMISTRY & BLOOD GAS ORDERABLES [facility] [address] [place] [address] from Last 3 Months or Most Recently Relevant to Health Maintenance
--- OUTSIDE RECORDS SUMMARY | 2024-08-27 13:01 | XMS_ITS | Encounter Summary ---
Author Organization [facility] Address [address] [place] [address] Care Team Providers Care Measurement And Sensing Technician Name Role Phone Unavailable Primary Care Provider Unavailabl e Encounter Details Date Type Department Care Team (Late st Contact Info) Description 02/08/2024 Lab Requisition [facility] Pathology & Laboratory Medicine - [facility] [address] [place] [address] Outr Resulting Lab, Provider Social History Tobacco [...] Quantiferon Interpretation Negative Negative 02/11/2024 13:40 EDT [facility] Comment:No interferon-gamma response to M. tuberculosis antigens was detected. ??Infection with M. tuberculosis is unlikely. A single negative result does not exclude infection with M. tuberculosis. ??In patients at high risk for M. tuberculosis infection, a second test should be considered. TB1 Ag minus Nil 0.00 IU/ml 02/11/20 13:40 EDT [facility] TB2 Ag minus Nil 0.00 IU/mL 02/11/20 13:40 EDT [facility] Blood VENOUS BLOOD / Unknown 02/07/2024 13:18 EDT 02/11/2024 13:39 EDT Provider Outr Resulting Lab IMMUNOLOGY A ND SEROLOGY ORDERABLES Performing Organization Address [facility] Co de Phone Number [facility] [address] [place] [address] * QUANTIFERON MITOGEN (PERFORMABLE) (02/07/2024 13:18 EDT) Blood VENOUS BLOOD / Unknown 02/07/2024 13:18 EDT 02/08/2024 17:22 EDT Provider Outr Resulting Lab IMMUNOLOGY A ND SEROLOGY ORDERABLES Performing Organization Address [facility] de Phone Number [facility] [address] [place] [address] * QUANTIFERON TB2 (PERFORMABLE) (02/07/2024 13:18 EDT) Blood VENOUS BLOOD / Unknown 02/07/2024 13:18 EDT 02/08/2024 17:22 EDT Provider Outr Resulting Lab IMMUNOLOGY A ND SEROLOGY ORDERABLES Performing Organization Address City/[facility] Co de Phone Number [facility] [address] [place] [address] * QUANTIFERON TB1 (PERFORMABLE) (02/07/2024 13:18 EDT) Blood VENOUS BLOOD / Unknown 02/07/2024 13:18 EDT 02/08/2024 17:22 EDT Provider Outr Resulting Lab IMMUNOLOGY A ND SEROLOGY ORDERABLES Performing Organization Address City/[facility] Co de Phone Number [facility] [address] [place] [address] * QUANTIFERON NIL (PERFORMABLE) (02/07/2024 13:18 EDT) Blood VENOUS BLOOD / Unknown 02/07/2024 13:18 EDT 02/08/2024 17:22 EDT Provider Outr Resulting Lab IMMUNOLOGY A ND SEROLOGY ORDERABLES Performing Organization Address [facility] Co de Phone Number [facility] [address] [place] [address] documented in this encounter Visit Diagnoses Not on filedocumented in this encounter
--- OUTSIDE RECORDS SUMMARY | 2024-08-27 13:01 | XMS_ITS | Clinical Summary ---
Author Organization [facility] Address [address] [place] [address] Care Team Providers Care Bookmaker'S Clerk Name Role Phone Unavailable Primary Care [...] C Antibody Negative Negative 02/16/2024 9:25 EDT [facility] Blood VENOUS BLOOD / Unknown 02/15/2024 8:14 EDT 02/15/2024 17:02 EDT Provider Outr Resulting Lab CHEMISTRY & BLOOD GAS ORDERABLES [facility] [address] [place] [address] from Last 3 Months or Most Recently Relevant to Health Maintenance
--- OUTSIDE RECORDS SUMMARY | 2024-08-29 14:05 | XMS_ITS | Encounter Summary ---
Author Organization [facility] Address [address] [place] [address] Care Team Providers Care Bottom Saw Operator Name Role Phone Unavailable Primary Care Provider Unavailabl e Encounter Details Date Type Department Care Team (Late st Contact Info) Description 04/30/2024 Lab Requisition [facility] Pathology & Laboratory Medicine - [facility] [address] [place] [address] Jaz Kc, DRIVER WHEELCHAIR [address] [place] [phone] Encounter for other general examination Social History [...]
--- OUTSIDE RECORDS SUMMARY | 2024-08-29 14:05 | XMS_ITS | Clinical Summary ---
Author Organization [facility] Address [address] [place] [address] Care Team Providers Care Pants Maker Name Role Phone Unavailable Primary Care [...] [facility] [address] [place] [address] from Last 3 Months or Most Recently Relevant to Health Maintenance
--- OUTSIDE RECORDS SUMMARY | 2024-08-29 14:05 | XMS_ITS | Referral Summary ---
Author Organization [facility] Address [address] [place] [address] Care Team Providers Care Cabinetmaker Helper Name Role Phone Unavailable Primary Care [...] [facility] [address] [place] [address] from Last 3 Months or Most Recently Relevant to Health Maintenance
--- OUTSIDE RECORDS SUMMARY | 2024-08-29 14:06 | XMS_ITS | Encounter Summary ---
Author Organization [facility] Address [address] [place] [address] Care Team Providers Care Occup Therapist Name Role Phone Unavailable Primary Care Provider Unavailabl e Encounter Details Date Type Department Care Team (Late st Contact Info) Description 04/30/2024 Lab Requisition [facility] Pathology & Laboratory Medicine - [facility] [address] [place] [address] Jaz Kc, CONTINUITY COORDINATOR [address] [place] [address] Encounter for other general examination [...] Negative 05/06/2024 15:20 EDT [facility] Comment:E6 OR E7 mRNA from o ne or more types of HPV types 16,18,31,33,35,39,45,51,52,56,58,59,66, and 68 is detected by investment executive mediated amplification. High and intermediate risk HPV types are associated with most squamous intraepithelial lesions and cervical cancers. Pap Test CERVIX UTERI STRUCTURE / Unknown 04/29/2024 13:10 EDT 05/05/2024 13:24 EDT [place] A De SMALL MICROBIOLOGY - GE NERAL ORDERABLES [facility] [address] [place] [address] * PAP TEST (04/29/2024 13:10 EDT) Specimens A. Cervix and/or Endocervix , ThinPrep Imaging System with Manual Evaluation 05/06/2024 15:20 EDT [facility] Specimen Adequacy Satisfactory for Evaluation - transformation zone component present 05/06/2024 15:20 EDT [facility] General Categorization Negative for intraepithelial lesion or malignancy 05/06/2024 15:20 T [facility] Descriptive Diagnosis 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 05/06/2024 15:20 EDT [facility] Attestation . 05/06/2024 15:20 T [facility] at 1520 Clinical History See below 05/06/20 15:20 EDT [facility] HPV The result for the Human Papillomavirus (HPV) Detection-High Risk Types is Positive . E6 OR E7 mRNA from one or more types of HPV types 16,18,31,33,35,39 ,45,51,52,56,58,5 9,66, and 68 is detected by investment executive mediated amplification. High and intermediate risk HPV types are associated with most squamous intraepithelial lesions and cervical cancers. Testing was performed on specimen [id number] and was resulted on 05/06/2024 1520 EDT by THANH, LAB INSTRUMENT RESULTS IN 05/06/2024 15:20 EDT [facility] Performing Lab [facility] 05/06/2024 15:20 EDT [facility] Scanned Images 05/06/2024 15:20 EDT [facility] Pap Test CERVIX UTERI STRUCTURE / Unknown 04/29/2024 13:10 EDT 04/30/2024 12:05 EDT Jaz Kc CONTINUITY COORDINATOR PATHOLOGY ORDERAB LES [facility] [address] [place] [address] documented in this encounter Visit Diagnoses Diagnosis Encounter for other general examination documented in this encounter
--- OUTSIDE RECORDS SUMMARY | 2024-08-29 14:06 | XMS_ITS | Encounter Summary ---
Author Organization [facility] Address [address] [place] [address] Care Team Providers Care Receiving Coordinator Name Role Phone Unavailable Primary Care Provider Unavailabl e Encounter Details Date Type Department Care Team (Late st Contact Info) Description 02/15/2024 Lab Requisition [facility] Pathology & Laboratory Medicine - [facility] [address] [place], [place] [address] Outr Resulting Lab, Provider Social History Tobacco [...] Negative Negative 02/16/2024 9:25 EDT [facility] Blood VENOUS BLOOD / Unknown 02/15/2024 8:14 EDT 02/15/2024 17:02 EDT Provider Outr Resulting Lab CHEMISTRY & BLOOD GAS ORDERABLES [facility] [address] [place], [place] [address] * TRANSFERRIN (02/15/2024 8:14 EDT) Transferrin 322 201 - 352 mg/dL 02/18/2024 8:31 EDT [facility] Blood VENOUS BLOOD / Unknown 02/15/2024 8:14 EDT 02/15/2024 17:02 EDT Provider Outr Resulting Lab CHEMISTRY & BLOOD GAS ORDERABLES [facility] [address] [place] [address] documented in this encounter Visit Diagnoses Not on filedocumented in this encounter
--- OUTSIDE RECORDS SUMMARY | 2024-08-29 14:06 | XMS_ITS | Encounter Summary ---
Author Organization [facility] Address [address] [place] [address] Care Team Providers Care Estimation Manager Name Role Phone Unavailable Primary Care Provider Unavailabl e Encounter Details Date Type Department Care Team (Late st Contact Info) Description 02/08/2024 Lab Requisition [facility] Pathology & Laboratory Medicine - [facility] [address] [place] [address] Outr Resulting Lab, Provider Social History Tobacco [...] Quantiferon Interpretation Negative Negative 02/11/2024 13:40 EDT [facility] Comment:No interferon-gamma response to M. tuberculosis antigens was detected. ??Infection with M. tuberculosis is unlikely. A single negative result does not exclude infection with M. tuberculosis. ??In patients at high risk for M. tuberculosis infection, a second test should be considered. TB1 Ag minus Nil 0.00 IU/ml 02/11/20 13:40 EDT [facility] TB2 Ag minus Nil 0.00 IU/mL 02/11/20 13:40 EDT [facility] Blood VENOUS BLOOD / Unknown 02/07/2024 13:18 EDT 02/11/2024 13:39 EDT Provider Outr Resulting Lab IMMUNOLOGY A ND SEROLOGY ORDERABLES Performing Organization Address [facility] Co de Phone Number [facility] [address] [place] [address] * QUANTIFERON MITOGEN (PERFORMABLE) (02/07/2024 13:18 EDT) Blood VENOUS BLOOD / Unknown 02/07/2024 13:18 EDT 02/08/2024 17:22 EDT Provider Outr Resulting Lab IMMUNOLOGY A ND SEROLOGY ORDERABLES Performing Organization Address [facility] de Phone Number [facility] [address] [place] [address] * QUANTIFERON TB2 (PERFORMABLE) (02/07/2024 13:18 EDT) Blood VENOUS BLOOD / Unknown 02/07/2024 13:18 EDT 02/08/2024 17:22 EDT Provider Outr Resulting Lab IMMUNOLOGY A ND SEROLOGY ORDERABLES Performing Organization Address City/[facility] Co de Phone Number [facility] [address] [place] [address] * QUANTIFERON TB1 (PERFORMABLE) (02/07/2024 13:18 EDT) Blood VENOUS BLOOD / Unknown 02/07/2024 13:18 EDT 02/08/2024 17:22 EDT Provider Outr Resulting Lab IMMUNOLOGY A ND SEROLOGY ORDERABLES Performing Organization Address City/[facility] Co de Phone Number [facility] [address] [place] [address] * QUANTIFERON NIL (PERFORMABLE) (02/07/2024 13:18 EDT) Blood VENOUS BLOOD / Unknown 02/07/2024 13:18 EDT 02/08/2024 17:22 EDT Provider Outr Resulting Lab IMMUNOLOGY A ND SEROLOGY ORDERABLES Performing Organization Address [facility] Co de Phone Number [facility] [address] [place] [address] documented in this encounter Visit Diagnoses Not on filedocumented in this encounter
--- OUTSIDE RECORDS SUMMARY | 2024-09-01 13:00 | XMS_ITS | Encounter Summary ---
Author Organization [facility] Address [address] [place] [address] Care Team Providers Care Hydro Generation Supervisor Name Role Phone Unavailable Primary Care Provider Unavailabl e Encounter Details Date Type Department Care Team (Late st Contact Info) Description 02/15/2024 Lab Requisition [facility] Pathology & Laboratory Medicine - [facility] [address] [place], [place] [address] Outr Resulting Lab, Provider Social History Tobacco [...] C Antibody Negative Negative 02/16/2024 9:25 EDT [facility] Blood VENOUS BLOOD / Unknown 02/15/2024 8:14 EDT 02/15/2024 17:02 EDT Provider Outr Resulting Lab CHEMISTRY & BLOOD GAS ORDERABLES [facility] [address] [place], [place] [address] * TRANSFERRIN (02/15/2024 8:14 EDT) Transferrin 322 201 - 352 mg/dL 02/18/2024 8:31 EDT [facility] Blood VENOUS BLOOD / Unknown 02/15/2024 8:14 EDT 02/15/2024 17:02 EDT Provider Outr Resulting Lab CHEMISTRY & BLOOD GAS ORDERABLES [facility] [address] [place] [address] documented in this encounter Visit Diagnoses Not on filedocumented in this encounter
--- OUTSIDE RECORDS SUMMARY | 2024-09-01 13:00 | XMS_ITS | Encounter Summary ---
Author Organization [facility] Address [address] [place] [address] Care Team Providers Care Operations General Agent Name Role Phone Unavailable Primary Care Provider Unavailabl e Encounter Details Date Type Department Care Team (Late st Contact Info) Description 04/30/2024 Lab Requisition [facility] Pathology & Laboratory Medicine - [facility] [address] [place] [address] Jaz Kc, WEDDING DECORATOR [address] [place] [phone] Encounter for other general examination Social History [...]
--- OUTSIDE RECORDS SUMMARY | 2024-09-01 13:00 | XMS_ITS | Clinical Summary ---
Author Organization [facility] Address [address] [place] [address] Care Team Providers Care Milling General Superintendent Name Role Phone Unavailable Primary Care Provider [...] Antibody Negative Negative 02/16/2024 9:[address] [facility] Blood VENOUS BLOOD / Unknown 02/15/2024 8:14 EDT 02/15/2024 17:02 EDT Provider Outr Resulting Lab CHEMISTRY & BLOOD GAS ORDERABLES [facility] [address] [place] [address] from Last 3 Months or Most Recently Relevant to Health Maintenance
--- OUTSIDE RECORDS SUMMARY | 2024-09-01 13:00 | XMS_ITS | Referral Summary ---
Author Organization [facility] Address [address] [place] [address] Care Team Providers Care Supervisor Diagnostic Name Role Phone Unavailable Primary Care Provider [...] ORDERABLES [facility] [address] [place] [address] from Last 3 Months or Most Recently Relevant to Health Maintenance
--- OUTSIDE RECORDS SUMMARY | 2024-09-01 13:00 | XMS_ITS | Encounter Summary ---
Author Organization [facility] Address [address] [place] [address] Care Team Providers Care Psychiatric Attendant Name Role Phone Unavailable Primary Care Provider Unavailabl e Encounter Details Date Type Department Care Team (Late st Contact Info) Description 02/08/2024 Lab Requisition [facility] Pathology & Laboratory Medicine - [facility] [address] [place] [address] Outr Resulting Lab, Provider Social History Tobacco [...] Interpretation Negative Negative 02/11/2024 13:40 EDT [facility] Comment:No interferon-gamma response to M. tuberculosis antigens was detected. ??Infection with M. tuberculosis is unlikely. A single negative result does not exclude infection with M. tuberculosis. ??In patients at high risk for M. tuberculosis infection, a second test should be considered. TB1 Ag minus Nil 0.00 IU/ml 02/11/20 13:40 EDT [facility] TB2 Ag minus Nil 0.00 IU/mL 02/11/20 13:40 EDT [facility] Blood VENOUS BLOOD / Unknown 02/07/2024 13:18 EDT 02/11/2024 13:39 EDT Provider Outr Resulting Lab IMMUNOLOGY A ND SEROLOGY ORDERABLES Performing Organization Address [facility] Co de Phone Number [facility] [address] [place] [address] * QUANTIFERON MITOGEN (PERFORMABLE) (02/07/2024 13:18 EDT) Blood VENOUS BLOOD / Unknown 02/07/2024 13:18 EDT 02/08/2024 17:22 EDT Provider Outr Resulting Lab IMMUNOLOGY A ND SEROLOGY ORDERABLES Performing Organization Address [facility] de Phone Number [facility] [address] [place] [address] * QUANTIFERON TB2 (PERFORMABLE) (02/07/2024 13:18 EDT) Blood VENOUS BLOOD / Unknown 02/07/2024 13:18 EDT 02/08/2024 17:22 EDT Provider Outr Resulting Lab IMMUNOLOGY A ND SEROLOGY ORDERABLES Performing Organization Address [facility] Co de Phone Number [facility] [address] [place] [address] * QUANTIFERON TB1 (PERFORMABLE) (02/07/2024 13:18 EDT) Blood VENOUS BLOOD / Unknown 02/07/2024 13:18 EDT 02/08/2024 17:22 EDT Provider Outr Resulting Lab IMMUNOLOGY A ND SEROLOGY ORDERABLES Performing Organization Address [facility] Co de Phone Number [facility] [address] [place] [address] * QUANTIFERON NIL (PERFORMABLE) (02/07/2024 13:18 EDT) Blood VENOUS BLOOD / Unknown 02/07/2024 13:18 EDT 02/08/2024 17:22 EDT Provider Outr Resulting Lab IMMUNOLOGY A ND SEROLOGY ORDERABLES Performing Organization Address [facility] Co de Phone Number [facility] [address] [place] [address] documented in this encounter Visit Diagnoses Not on filedocumented in this encounter
--- OUTSIDE RECORDS SUMMARY | 2024-09-01 13:00 | XMS_ITS | Encounter Summary ---
Author Organization [facility] Address [address] [place] [address] Care Team Providers Care Outside Repairer Special Name Role Phone Unavailable Primary Care Provider Unavailabl e Encounter Details Date Type Department Care Team (Late st Contact Info) Description 04/30/2024 Lab Requisition [facility] Pathology & Laboratory Medicine - [facility] [address] [place] [address] Jaz Kc, CENTRAL AISLE CASHIER [address] [place] [address] Encounter for other general examination [...] PCR Positive( A) Negative 05/06/2024 15:20 EDT [facility] Comment:E6 OR E7 mRNA from o ne or more types of HPV types 16,18,31,33,35,39,45,51,52,56,58,59,66, and 68 is detected by sheep sorter mediated amplification. High and intermediate risk HPV types are associated with most squamous intraepithelial lesions and cervical cancers. Pap Test CERVIX UTERI STRUCTURE / Unknown 04/29/2024 13:10 EDT 05/05/2024 13:[address] A De SMALL MICROBIOLOGY - GE NERAL ORDERABLES [facility] [address] [place] [address] * PAP TEST (04/29/2024 13:10 EDT) Specimens A. Cervix and/or Endocervix , ThinPrep Imaging System with Manual Evaluation 05/06/2024 15:20 EDT [facility] Specimen Adequacy Satisfactory for Evaluation - transformation zone component present 05/06/2024 15:20 EDT [facility] General Categorization Negative for intraepithelial lesion or malignancy 05/06/2024 15:20 T [facility] Descriptive Diagnosis 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 05/06/2024 15:20 EDT [facility] Attestation . 05/06/2024 15:20 T [facility] at 1520 Clinical History See below 05/06/20 15:20 EDT [facility] HPV The result for the Human Papillomavirus (HPV) Detection-High Risk Types is Positive . E6 OR E7 mRNA from one or more types of HPV types 16,18,31,33,35,39 ,45,51,52,56,58,5 9,66, and 68 is detected by sheep sorter mediated amplification. High and intermediate risk HPV types are associated with most squamous intraepithelial lesions and cervical cancers. Testing was performed on specimen [id number] and was resulted on 05/06/2024 1520 EDT by THANH, LAB INSTRUMENT RESULTS IN 05/06/2024 15:20 EDT [facility] Performing Lab [facility] 05/06/2024 15:20 EDT [facility] Scanned Images 05/06/2024 15:20 EDT [facility] Pap Test CERVIX UTERI STRUCTURE / Unknown 04/29/2024 13:10 EDT 04/30/2024 12:05 EDT Jaz Kc CENTRAL AISLE CASHIER PATHOLOGY ORDERAB LES [facility] [address] [place] [address] documented in this encounter Visit Diagnoses Diagnosis Encounter for other general examination documented in this encounter
--- OUTSIDE RECORDS SUMMARY | 2024-09-03 13:18 | XMS_ITS | Referral Summary ---
Author Organization [facility] Address [address] [place] [address] Care Team Providers Care Supervisor Title Name Role Phone Unavailable Primary Care Provider [...] Negative Negative 02/16/2024 9:25 EDT [facility] Blood VENOUS BLOOD / Unknown 02/15/2024 8:14 EDT 02/15/2024 17:02 EDT Provider Outr Resulting Lab CHEMISTRY & BLOOD GAS ORDERABLES [facility] [address] [place] [address] from Last 3 Months or Most Recently Relevant to Health Maintenance
--- OUTSIDE RECORDS SUMMARY | 2024-09-03 13:18 | XMS_ITS | Encounter Summary ---
Author Organization [facility] Address [address] [place] [address] Care Team Providers Care Navigation Teacher Name Role Phone Unavailable Primary Care Provider Unavailabl e Encounter Details Date Type Department Care Team (Late st Contact Info) Description 04/30/[address] [facility] Pathology & Laboratory Medicine - [facility] [address] [place] [address] Jaz Kc, ITALIAN TEACHER [address] [place] [phone] Encounter for other general examination Social History [...]
--- OUTSIDE RECORDS SUMMARY | 2024-09-03 13:18 | XMS_ITS | Encounter Summary ---
Author Organization [facility] Address [address] [place] [address] Care Team Providers Care Welding Production Supervisor Name Role Phone Unavailable Primary Care Provider Unavailabl e Encounter Details Date Type Department Care Team (Late st Contact Info) Description 02/08/2024 Lab Requisition [facility] Pathology & Laboratory Medicine - [facility] [address] [place] [address] Outr Resulting Lab, Provider Social History Tobacco [...] Negative Negative 02/11/2024 13:40 EDT [facility] Comment:No interferon-gamma response to M. tuberculosis antigens was detected. ??Infection with M. tuberculosis is unlikely. A single negative result does not exclude infection with M. tuberculosis. ??In patients at high risk for M. tuberculosis infection, a second test should be considered. TB1 Ag minus Nil 0.00 IU/ml 02/11/20 13:40 EDT [facility] TB2 Ag minus Nil 0.00 IU/mL 02/11/20 13:40 EDT [facility] Blood VENOUS BLOOD / Unknown 02/07/2024 13:18 EDT 02/11/2024 13:39 EDT Provider Outr Resulting Lab IMMUNOLOGY A ND SEROLOGY ORDERABLES Performing Organization Address [facility] Co de Phone Number [facility] [address] [place] [address] * QUANTIFERON MITOGEN (PERFORMABLE) (02/07/2024 13:18 EDT) Blood VENOUS BLOOD / Unknown 02/07/2024 13:18 EDT 02/08/2024 17:22 EDT Provider Outr Resulting Lab IMMUNOLOGY A ND SEROLOGY ORDERABLES Performing Organization Address [facility] de Phone Number [facility] [address] [place] [address] * QUANTIFERON TB2 (PERFORMABLE) (02/07/2024 13:18 EDT) Blood VENOUS BLOOD / Unknown 02/07/2024 13:18 EDT 02/08/2024 17:22 EDT Provider Outr Resulting Lab IMMUNOLOGY A ND SEROLOGY ORDERABLES Performing Organization Address [facility] Co de Phone Number [facility] [address] [place] [address] * QUANTIFERON TB1 (PERFORMABLE) (02/07/2024 13:18 EDT) Blood VENOUS BLOOD / Unknown 02/07/2024 13:18 EDT 02/08/2024 17:22 EDT Provider Outr Resulting Lab IMMUNOLOGY A ND SEROLOGY ORDERABLES Performing Organization Address [facility] Co de Phone Number [facility] [address] [place] [address] * QUANTIFERON NIL (PERFORMABLE) (02/07/2024 13:18 EDT) Blood VENOUS BLOOD / Unknown 02/07/2024 13:18 EDT 02/08/2024 17:22 EDT Provider Outr Resulting Lab IMMUNOLOGY A ND SEROLOGY ORDERABLES Performing Organization Address [facility] Co de Phone Number [facility] [address] [place] [address] documented in this encounter Visit Diagnoses Not on filedocumented in this encounter
--- OUTSIDE RECORDS SUMMARY | 2024-09-03 13:18 | XMS_ITS | Encounter Summary ---
Author Organization [facility] Address [address] [place] [address] Care Team Providers Care Weight Yardage Checker Name Role Phone Unavailable Primary Care Provider Unavailabl e Encounter Details Date Type Department Care Team (Late st Contact Info) Description 04/30/2024 Lab Requisition [facility] Pathology & Laboratory Medicine - [facility] [address] [place] [address] Jaz Kc, FINISH INSPECTOR [address] [place] [address] Encounter for other general examination [...] PCR Positive( A) Negative 05/06/2024 15:20 EDT [facility] Comment:E6 OR E7 mRNA from o ne or more types of HPV types 16,18,31,33,35,39,45,51,52,56,58,59,66, and 68 is detected by pcas mediated amplification. High and intermediate risk HPV types are associated with most squamous intraepithelial lesions and cervical cancers. Pap Test CERVIX UTERI STRUCTURE / Unknown 04/29/2024 13:10 EDT 05/05/2024 13:24 EDT [place] A De SMALL MICROBIOLOGY - GE NERAL ORDERABLES [facility] [address] [place] [address] * PAP TEST (04/29/2024 13:10 EDT) Specimens A. Cervix and/or Endocervix , ThinPrep Imaging System with Manual Evaluation 05/06/2024 15:20 EDT [facility] Specimen Adequacy Satisfactory for Evaluation - transformation zone component present 05/06/2024 15:20 EDT [facility] General Categorization Negative for intraepithelial lesion or malignancy 05/06/2024 15:20 T [facility] Descriptive Diagnosis 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 05/06/2024 15:20 EDT [facility] Attestation . 05/06/2024 15:20 T [facility] at 1520 Clinical History See below 05/06/20 15:20 EDT [facility] HPV The result for the Human Papillomavirus (HPV) Detection-High Risk Types is Positive . E6 OR E7 mRNA from one or more types of HPV types 16,18,31,33,35,39 ,45,51,52,56,58,5 9,66, and 68 is detected by pcas mediated amplification. High and intermediate risk HPV types are associated with most squamous intraepithelial lesions and cervical cancers. Testing was performed on specimen [id number] and was resulted on 05/06/2024 1520 EDT by THANH, LAB INSTRUMENT RESULTS IN 05/06/2024 15:20 EDT [facility] Performing Lab [facility] 05/06/2024 15:20 EDT [facility] Scanned Images 05/06/2024 15:20 EDT [facility] Pap Test CERVIX UTERI STRUCTURE / Unknown 04/29/2024 13:10 EDT 04/30/2024 12:05 EDT Jaz Kc FINISH INSPECTOR PATHOLOGY ORDERAB LES [facility] [address] [place] [address] documented in this encounter Visit Diagnoses Diagnosis Encounter for other general examination documented in this encounter
--- OUTSIDE RECORDS SUMMARY | 2024-09-03 13:18 | XMS_ITS | Encounter Summary ---
Author Organization [facility] Address [address] [place] [address] Care Team Providers Care Classifier Tender Name Role Phone Unavailable Primary Care Provider Unavailabl e Encounter Details Date Type Department Care Team (Late st Contact Info) Description 02/15/2024 Lab Requisition [facility] Pathology & Laboratory Medicine - [facility] [address] [place], [place] [address] Outr Resulting Lab, Provider Social History Tobacco [...] [facility] [address] [place], [place] [address] * TRANSFERRIN (02/15/2024 8:14 EDT) Transferrin 322 201 - 352 mg/dL 02/18/2024 8:31 EDT [facility] Blood VENOUS BLOOD / Unknown 02/15/2024 8:14 EDT 02/15/2024 17:02 EDT Provider Outr Resulting Lab CHEMISTRY & BLOOD GAS ORDERABLES [facility] [address] [place] [address] documented in this encounter Visit Diagnoses Not on filedocumented in this encounter
--- OUTSIDE RECORDS SUMMARY | 2024-09-03 13:18 | XMS_ITS | Clinical Summary ---
Author Organization [facility] Address [address] [place] [address] Care Team Providers Care Fishing Captain Name Role Phone Unavailable Primary Care Provider [...] [facility] [address] [place] [address] from Last 3 Months or Most Recently Relevant to Health Maintenance
--- OUTSIDE RECORDS SUMMARY | 2024-09-05 13:14 | XMS_ITS | Encounter Summary ---
Author Organization [facility] Address [address] [place] [address] Care Team Providers Care Extension Worker Name Role Phone Unavailable Primary Care Provider Unavailabl e Encounter Details Date Type Department Care Team (Late st Contact Info) Description 04/30/20[address] [facility] Pathology & Laboratory Medicine - [facility] [address] [place] [address] Jaz Kc, PRINTING MACHINE MECHANIC [address] [place] [address] Encounter for other general examination [...] types 16,18,31,33,35,39,45,51,52,56,58,59,66, and 68 is detected by vacuum frame operator mediated amplification. High and intermediate risk HPV types are associated with most squamous intraepithelial lesions and cervical cancers. Pap Test CERVIX UTERI STRUCTURE / Unknown 04/29/2024 13:10 EDT 05/05/2024 13:24 EDT [place] A De SMALL MICROBIOLOGY - GE NERAL ORDERABLES [facility] [address] [place] [address] * PAP TEST (04/29/2024 13:10 EDT) Specimens [...] ,45,51,52,56,58,5 9,66, and 68 is detected by vacuum frame operator mediated amplification. High and intermediate risk HPV types are associated with most squamous intraepithelial lesions and cervical cancers. Testing was performed on specimen [id number] and was resulted on 05/06/2024 1520 EDT by THANH, LAB INSTRUMENT RESULTS IN 05/06/2024 15:20 EDT [facility] Performing Lab [facility] 05/06/2024 15:20 EDT [facility] Scanned Images 05/06/2024 15:20 EDT [facility] Pap Test CERVIX UTERI STRUCTURE / Unknown 04/29/2024 13:10 EDT 04/30/2024 12:05 EDT Jaz Kc PRINTING MACHINE MECHANIC PATHOLOGY ORDERAB LES [facility] [address] [place] [address] documented in this encounter Visit Diagnoses Diagnosis Encounter for other general examination documented in this encounter
--- OUTSIDE RECORDS SUMMARY | 2024-09-05 13:14 | XMS_ITS | Clinical Summary ---
Author Organization [facility] Address [address] [place] [address] Care Team Providers Care Practice Administrator Name Role Phone Unavailable Primary Care Provider [...] C Antibody Negative Negative 02/16/2024 9:25 EDT [facility] Blood VENOUS BLOOD / Unknown 02/15/2024 8:14 EDT 02/15/2024 17:02 EDT Provider Outr Resulting Lab CHEMISTRY & BLOOD GAS ORDERABLES [facility] [address] [place] [address] from Last 3 Months or Most Recently Relevant to Health Maintenance
--- OUTSIDE RECORDS SUMMARY | 2024-09-05 13:14 | XMS_ITS | Encounter Summary ---
Author Organization [facility] Address [address] [place] [address] Care Team Providers Care Supervisor Road Administrator Name Role Phone Unavailable Primary Care Provider Unavailabl e Encounter Details Date Type Department Care Team (Late st Contact Info) Description 02/08/2024 Lab Requisition [facility] Pathology & Laboratory Medicine - [facility] [address] [place] [address] Outr Resulting Lab, Provider Social History Tobacco [...] Quantiferon Interpretation Negative Negative 02/11/2024 13:40 EDT [facility] Comment:No interferon-gamma response to M. tuberculosis antigens was detected. ??Infection with M. tuberculosis is unlikely. A single negative result does not exclude infection with M. tuberculosis. ??In patients at high risk for M. tuberculosis infection, a second test should be considered. TB1 Ag minus Nil 0.00 IU/ml 02/11/20 13:40 EDT [facility] TB2 Ag minus Nil 0.00 IU/mL 02/11/20 13:40 EDT [facility] Blood VENOUS BLOOD / Unknown 02/07/2024 13:18 EDT 02/11/2024 13:39 EDT Provider Outr Resulting Lab IMMUNOLOGY A ND SEROLOGY ORDERABLES Performing Organization Address [facility] Co de Phone Number [facility] [address] [place] [address] * QUANTIFERON MITOGEN (PERFORMABLE) (02/07/2024 13:18 EDT) Blood VENOUS BLOOD / Unknown 02/07/2024 13:18 EDT 02/08/2024 17:22 EDT Provider Outr Resulting Lab IMMUNOLOGY A ND SEROLOGY ORDERABLES Performing Organization Address [facility] de Phone Number [facility] [address] [place] [address] * QUANTIFERON TB2 (PERFORMABLE) (02/07/2024 13:18 EDT) Blood VENOUS BLOOD / Unknown 02/07/2024 13:18 EDT 02/08/2024 17:22 EDT Provider Outr Resulting Lab IMMUNOLOGY A ND SEROLOGY ORDERABLES Performing Organization Address City/[facility] Co de Phone Number [facility] [address] [place] [address] * QUANTIFERON TB1 (PERFORMABLE) (02/07/2024 13:18 EDT) Blood VENOUS BLOOD / Unknown 02/07/2024 13:18 EDT 02/08/2024 17:22 EDT Provider Outr Resulting Lab IMMUNOLOGY A ND SEROLOGY ORDERABLES Performing Organization Address City/[facility] Co de Phone Number [facility] [address] [place] [address] * QUANTIFERON NIL (PERFORMABLE) (02/07/2024 13:18 EDT) Blood VENOUS BLOOD / Unknown 02/07/2024 13:18 EDT 02/08/2024 17:22 EDT Provider Outr Resulting Lab IMMUNOLOGY A ND SEROLOGY ORDERABLES Performing Organization Address [facility] Co de Phone Number [facility] [address] [place] [address] documented in this encounter Visit Diagnoses Not on filedocumented in this encounter
--- OUTSIDE RECORDS SUMMARY | 2024-09-05 13:14 | XMS_ITS | Encounter Summary ---
Author Organization [facility] Address [address] [place] [address] Care Team Providers Care Tail Sawyer Name Role Phone Unavailable Primary Care Provider Unavailabl e Encounter Details Date Type Department Care Team (Late st Contact Info) Description 04/30/2024 Lab Requisition [facility] Pathology & Laboratory Medicine - [facility] [address] [place] [address] Jaz Kc, COMMERCIAL ATTACHE [address] [place] [id number] Encounter for other general examination Social History [...]
--- OUTSIDE RECORDS SUMMARY | 2024-09-05 13:14 | XMS_ITS | Encounter Summary ---
Author Organization [facility] Address [address] [place] [address] Care Team Providers Care Student Finance Specialist Name Role Phone Unavailable Primary Care Provider Unavailabl e Encounter Details Date Type Department Care Team (Late st Contact Info) Description 02/15/2024 Lab Requisition [facility] Pathology & Laboratory Medicine - [facility] [address] [place], [place] [address] Outr Resulting Lab, Provider Social History Tobacco [...] Antibody Negative Negative 02/16/2024 9:25 EDT [facility] Blood VENOUS BLOOD / Unknown 02/15/2024 8:14 EDT 02/15/2024 17:02 EDT Provider Outr Resulting Lab CHEMISTRY & BLOOD GAS ORDERABLES [facility] [address] [place], [place] [address] * TRANSFERRIN (02/15/2024 8:14 EDT) Transferrin 322 201 - 352 mg/dL 02/18/2024 8:31 EDT [facility] Blood VENOUS BLOOD / Unknown 02/15/2024 8:14 EDT 02/15/2024 17:02 EDT Provider Outr Resulting Lab CHEMISTRY & BLOOD GAS ORDERABLES [facility] [address] [place] [address] documented in this encounter Visit Diagnoses Not on filedocumented in this encounter
--- OUTSIDE RECORDS SUMMARY | 2024-09-05 13:14 | XMS_ITS | Referral Summary ---
Author Organization [facility] Address [address] [place] [address] Care Team Providers Care Package Designer Name Role Phone Unavailable Primary Care Provider [...] C Antibody Negative Negative 02/16/2024 9:25 EDT [facility] Blood VENOUS BLOOD / Unknown 02/15/2024 8:14 EDT 02/15/2024 17:02 EDT Provider Outr Resulting Lab CHEMISTRY & BLOOD GAS ORDERABLES [facility] [address] [place] [address] from Last 3 Months or Most Recently Relevant to Health Maintenance
--- OUTSIDE RECORDS SUMMARY | 2024-09-08 13:05 | XMS_ITS | Referral Summary ---
Author Organization [facility] Address [address] [place] [address] Care Team Providers Care Allergy Specialist Name Role Phone Unavailable Primary Care [...] C Antibody Negative Negative 02/16/2024 9:25 EDT [facility] Blood VENOUS BLOOD / Unknown 02/15/2024 8:14 EDT 02/15/2024 17:02 EDT Provider Outr Resulting Lab CHEMISTRY & BLOOD GAS ORDERABLES [facility] [address] [place] [address] from Last 3 Months or Most Recently Relevant to Health Maintenance
--- OUTSIDE RECORDS SUMMARY | 2024-09-08 13:05 | XMS_ITS | Encounter Summary ---
Author Organization [facility] Address [address] [place] [address] Care Team Providers Care Drop Wire Aliner Name Role Phone Unavailable Primary Care Provider Unavailabl e Encounter Details Date Type Department Care Team (Late st Contact Info) Description 02/15/2024 Lab Requisition [facility] Pathology & Laboratory Medicine - [facility] [address] [place], [place] [id number] Outr Resulting Lab, Provider Social History Tobacco [...] Antibody Negative Negative 02/16/2024 9:25 EDT [facility] Blood VENOUS BLOOD / Unknown 02/15/2024 8:14 EDT 02/15/2024 17:02 EDT Provider Outr Resulting Lab CHEMISTRY & BLOOD GAS ORDERABLES [facility] [address] [place], [place] [address] * TRANSFERRIN (02/15/2024 8:14 EDT) Transferrin 322 201 - 352 mg/dL 02/18/2024 8:31 EDT [facility] Blood VENOUS BLOOD / Unknown 02/15/2024 8:14 EDT 02/15/2024 17:02 EDT Provider Outr Resulting Lab CHEMISTRY & BLOOD GAS ORDERABLES [facility] [address] [place] [address] documented in this encounter Visit Diagnoses Not on filedocumented in this encounter
--- OUTSIDE RECORDS SUMMARY | 2024-09-08 13:05 | XMS_ITS | Encounter Summary ---
Author Organization [facility] Address [address] [place] [address] Care Team Providers Care Oil Field Equipment Mechanic Supervisor Name Role Phone Unavailable Primary Care Provider Unavailabl e Encounter Details Date Type Department Care Team (Late st Contact Info) Description 04/30/2024 Lab Requisition [facility] Pathology & Laboratory Medicine - [facility] [address] [place] [address] Jaz Kc, ROSS FURNACE OPERATOR [address] [place] [phone] Encounter for other general examination Social History [...]
--- OUTSIDE RECORDS SUMMARY | 2024-09-08 13:05 | XMS_ITS | Clinical Summary ---
Author Organization [facility] Address [address] [place] [address] Care Team Providers Care Financial Investigator Name Role Phone Unavailable Primary Care Provider [...] ORDERABLES [facility] [address] [place] [address] from Last 3 Months or Most Recently Relevant to Health Maintenance
--- OUTSIDE RECORDS SUMMARY | 2024-09-08 13:05 | XMS_ITS | Encounter Summary ---
Author Organization [facility] Address [address] [place] [address] Care Team Providers Care Licensed Real Estate Broker Name Role Phone Unavailable Primary Care Provider Unavailabl e Encounter Details Date Type Department Care Team (Late st Contact Info) Description 02/08/2024 Lab Requisition [facility] Pathology & Laboratory Medicine - [facility] [address] [place] [address] Outr Resulting Lab, Provider Social History Tobacco [...] Quantiferon Interpretation Negative Negative 02/11/2024 13:40 EDT [facility] Comment:No interferon-gamma response to M. tuberculosis antigens was detected. ??Infection with M. tuberculosis is unlikely. A single negative result does not exclude infection with M. tuberculosis. ??In patients at high risk for M. tuberculosis infection, a second test should be considered. TB1 Ag minus Nil 0.00 IU/ml 02/11/20 13:40 EDT [facility] TB2 Ag minus Nil 0.00 IU/mL 02/11/20 13:40 EDT [facility] Blood VENOUS BLOOD / Unknown 02/07/2024 13:18 EDT 02/11/2024 13:39 EDT Provider Outr Resulting Lab IMMUNOLOGY A ND SEROLOGY ORDERABLES Performing Organization Address [facility] Co de Phone Number [facility] [address] [place] [address] * QUANTIFERON MITOGEN (PERFORMABLE) (02/07/2024 13:18 EDT) Blood VENOUS BLOOD / Unknown 02/07/2024 13:18 EDT 02/08/2024 17:22 EDT Provider Outr Resulting Lab IMMUNOLOGY A ND SEROLOGY ORDERABLES Performing Organization Address [facility] de Phone Number [facility] [address] [place] [address] * QUANTIFERON TB2 (PERFORMABLE) (02/07/2024 13:18 EDT) Blood VENOUS BLOOD / Unknown 02/07/2024 13:18 EDT 02/08/2024 17:22 EDT Provider Outr Resulting Lab IMMUNOLOGY A ND SEROLOGY ORDERABLES Performing Organization Address City/[facility] Co de Phone Number [facility] [address] [place] [address] * QUANTIFERON TB1 (PERFORMABLE) (02/07/2024 13:18 EDT) Blood VENOUS BLOOD / Unknown 02/07/2024 13:18 EDT 02/08/2024 17:22 EDT Provider Outr Resulting Lab IMMUNOLOGY A ND SEROLOGY ORDERABLES Performing Organization Address City/[facility] Co de Phone Number [facility] [address] [place] [address] * QUANTIFERON NIL (PERFORMABLE) (02/07/2024 13:18 EDT) Blood VENOUS BLOOD / Unknown 02/07/2024 13:18 EDT 02/08/2024 17:22 EDT Provider Outr Resulting Lab IMMUNOLOGY A ND SEROLOGY ORDERABLES Performing Organization Address [facility] Co de Phone Number [facility] [address] [place] [address] documented in this encounter Visit Diagnoses Not on filedocumented in this encounter
--- OUTSIDE RECORDS SUMMARY | 2024-09-08 13:05 | XMS_ITS | Encounter Summary ---
Author Organization [facility] Address [address] [place] [address] Care Team Providers Care Press Operator Heavy Duty Name Role Phone Unavailable Primary Care Provider Unavailabl e Encounter Details Date Type Department Care Team (Late st Contact Info) Description 04/30/2024 Lab Requisition [facility] Pathology & Laboratory Medicine - [facility] [address] [place] [address] Jaz Kc, EDUCATIONAL RESOURCE COORDINATOR [address] [place] [phone] Encounter for other general examination [...] Positive( A) Negative 05/06/2024 15:20 EDT [facility] Comment:E6 OR E7 mRNA from o ne or more types of HPV types 16,18,31,33,35,39,45,51,52,56,58,59,66, and 68 is detected by client manager mediated amplification. High and intermediate risk HPV types are associated with most squamous intraepithelial lesions and cervical cancers. Pap Test CERVIX UTERI STRUCTURE / Unknown 04/29/2024 13:10 EDT 05/05/2024 13:24 EDT [place] [facility] MICROBIOLOGY - GE NERAL ORDERABLES [facility] [address] [place] [address] * PAP TEST (04/29/2024 13:10 EDT) Specimens A. Cervix and/or Endocervix , ThinPrep Imaging System with Manual Evaluation 05/06/2024 15:20 EDT [facility] Specimen Adequacy Satisfactory for Evaluation - transformation zone component present 05/06/2024 15:20 EDT [facility] General Categorization Negative for intraepithelial lesion or malignancy 05/06/2024 15:20 T [facility] Descriptive Diagnosis 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 05/06/2024 15:20 EDT [facility] Attestation . 05/06/2024 15:20 T [facility] at 1520 Clinical History See below 05/06/20 15:20 EDT [facility] HPV The result for the Human Papillomavirus (HPV) Detection-High Risk Types is Positive . E6 OR E7 mRNA from one or more types of HPV types 16,18,31,33,35,39 ,45,51,52,56,58,5 9,66, and 68 is detected by client manager mediated amplification. High and intermediate risk HPV types are associated with most squamous intraepithelial lesions and cervical cancers. Testing was performed on specimen [id number] and was resulted on 05/06/2024 1520 EDT by THANH, LAB INSTRUMENT RESULTS IN 05/06/2024 15:20 EDT [facility] Performing Lab [facility] 05/06/2024 15:20 EDT [facility] Scanned Images 05/06/2024 15:20 EDT [facility] Pap Test CERVIX UTERI STRUCTURE / Unknown 04/29/2024 13:10 EDT 04/30/2024 12:05 EDT Jaz Kc EDUCATIONAL RESOURCE COORDINATOR PATHOLOGY ORDERAB LES [facility] [address] [place] [address] documented in this encounter Visit Diagnoses Diagnosis Encounter for other general examination documented in this encounter
== END 2024-09-11 23:59 | disposition home or self-care (01) ==
LOC: CR 13:03
PROVIDERS: PCP Nurse Practitioner Family; Visit Provider Internal Medicine Cardiovascular Disease
DX: I50.22 Chronic systolic (congestive) heart failure (principal); Z51.89 Encounter for other specified aftercare
CPT/HCPCS: S9472

== ENCOUNTER 2024-09-17 01:39 | Outpatient (CLI) | payer OTHER, SELFPAY ==
--- NOTE | 2024-09-17 07:30 | DI.US_ITS ---
APPROVED REPORT EXAM: Comprehensive 2D, Doppler, and color-flow Echocardiogram Patient Location: Out-Patient Port Surveyor: Jody Rice RDCS (AE) Indications: Assess electrodes, implanted defibrillator, Left ventricular cardiomyopathy Other Information Study Quality: Adequate Conclusion Left ventricle is mildly dilated. Wall thickness is normal. Ejection fraction is 25 to 30% with bertha bal hypokinesis Normal right ventricular size. Right ventricle may be hypocontractile Left atrium is moderately dilated. Normal right atrial size Device lead noted in the right heart There are no structural valvular abnormalities There is trace aortic regurgitation, trace to mild mitral and tricuspid regurgitation Estimated right ventricular systolic pressure is 30 mmHg Wall motion Left Ventricle Left ventricle is moderately dilated. Left ventricular systolic function is severely decreased. Ther e is normal left ventricular wall thickness. There is global hypokinesis of the left ventricle. There is no ventricular septal defect visualized. LVEF is 27%. Right Ventricle Right ventricle is grossly normal in size. Right ventricle is moderately hypokinetic. Device lead is present in the right ventricle. Atria Left atrium is moderately dilated. The right atrium size is normal. The interatrial septum is intact with no evidence for an atrial septal defect. Aortic Valve The aortic valve is normal in structure. Aortic valve is trileaflet. There is no aortic valvular sten osis. Trace aortic regurgitation. Mitral Valve The mitral valve is normal in structure. No evidence of mitral valve stenosis. Trace to mild mitral regurgitation. Tricuspid Valve The tricuspid valve is normal in structure. There is no tricuspid valve stenosis. Trace to mild tricu spid regurgitation. The RVSP is 29.7 mmHg. Pulmonic Valve The pulmonary valve is normal in structure. There is no pulmonic valvular stenosis. Trace pulmonic r egurgitation. Great Vessels The aortic root is normal in size. The ascending aorta is top normal size. Aortic arch is normal in c aliber. IVC is normal in size and collapses >50% with inspiration. Pericardium There is no pericardial effusion. 2D Dimensions IVSD d PLAX 0.70 cm F: 0.6-1.0 Ao Root d 2.99 cm F: 2.7 - 3.3 LVPW d PLAX 0.70 cm F: 0.6 - 1.0 Ao Asc Diam d 3.26 cm F: 2.3 - 3.1 LVID d PLAX 6.40 cm F: 3.8 - 5.2 LVDs 5.64 cm F: 2.2 - 3.5 LV EF Teichholz 24.6 % FS 11.60 % LV EDV (Teich) 207.0 mL LV ESV (Teich) 156.2 mL M-Mode TAPSE 2.42 cm (M/F) >1.7 Auto EF LV EDV A4C 172.1 mL LV EDV A2C 197.2 mL LV EDV BP 184.8 mL LV ESV A4C 122.6 mL LV ESV A2C 141.1 mL LV ESV BP 130.3 mL LVEF(%) A4C 28.8 % LVEF(%) A2C 28.4 % LVEF(%) BP 29.5 % LV SV A4C 49.5 ml LV SV A2C 56.1 ml LV SV BP 54.6 ml LV CO A4C 3.4 L/min LV CO A2C 3.7 L/min LV CO BP 3.5 L/min HR A4C 67.79 BPM HR A2C 65.22 BPM LV EDV Index (BP) LV Strain Long Pk Overal Avg (s) 8.70 LA Volume LA Length A4C 5.7 cm LA Length A2C 5.7 cm LA Area A4C s 22.61 cm2 LA Area A2C s 22.61 cm2 LA Vol A4C A-L 76.16 mL LA Vol A2C A-L 76.64 mL LA Vol Biplane A-L 76.6 mL LA Vol/BSA A4C A-L LA Vol/BSA A2C A-L LA Vol/BSA BP A-L 37.7 mL/m2 LA Vol A4C MOD 69.2 mL LA Vol A2C MOD 71.6 mL LA Vol BP MOD 70.3 mL RA Volume RA Area A4C 11.3 cm2 RA ESV A4C (A-L) 25.6mL RA Vol/BSA A4C A-L RA Length A4C 4.2 cm RA ESV A4C (MOD) 24.7mL LV Diastology MV E' medial 0.075 (>0.07 m/s) MV E Vmax 0.84 (0.4-1.3 m/s) MV E/E' MED 11.13 (<14) MV A Vmax 0.70 (0.4-1.3 m/s) MV E' lateral 0.055 (>0.1 m/s) E/A Ratio 1.2 MV E/E' LAT 15.30 (<14) MV E' Average 0.065 m/s MV E/E'(average) 12.89 Aortic Valve AoV Vmax 1.01 m/s LVOT Vmax 0.87 m/s AoV Peak Grad 4.1 mmHg LVOT Peak Grad 3.1 mmHg AoV Area (Vmax) 2.62 cm2 LVOT VTI 0.174 m AoV VTI 0.201 m LVOT Mean Grad 1.2 mmHg AoV Mean Marco. 0.72 m/s LVOT SV 52.56 mL AoV Mean Grad 2.4 mmHg LVOT Diam s 1.95 cm AoV Area (VTI) 2.61 cm2 AV Regurg Peak Gr. 4.09 mmHg Velocity Ratio 0.86 Mitral Valve MV DT 134 (160-240 msec) MV Vmax TIPS 1.00 m/s MV Mean Grad 1.6 (<2mmHg) MV VTI 0.227 m Pulmonary Valve PV Vmax 0.90 (0.5-1.5 m/s) RVOT Vmax 0.58 m/s PV Peak Grad 3.3 mmHg RVOT Peak Gr. 1.3 mmHg PV Mean Marco 0.65 m/s RVOT VTI 0.134 m PV Mean Grad 1.9 mmHg RVOT Mean Gr. 0.8 mmHg Tricuspid Valve RA Pressure 3.00 mmHg TR Vmax 2.59 m/s TV S' 0.12 m/s TR Peak Grad 26.7 mmHg RVSP (TR) 29.7 mmHg
== END 2024-09-17 01:59 ==
LOC: DI 01:40
PROVIDERS: PCP Nurse Practitioner Family; Visit Provider Family Medicine
DX: Z95.810 Presence of automatic (implantable) cardiac defibrillator (principal); I42.8 Other cardiomyopathies
CPT/HCPCS: 93306

== ENCOUNTER 2024-10-08 08:23 | Outpatient (RCR) | payer OTHER, SELFPAY ==
--- OUTSIDE RECORDS SUMMARY | 2024-09-22 08:08 | XMS_ITS | Encounter Summary ---
Author Organization [facility] Address [address] [place] [address] Care Team Providers Care Electrician Machine Shop Name Role Phone Unavailable Primary Care Provider Unavailabl e Encounter Details Date Type Department Care Team (Late st Contact Info) Description 02/15/2024 Lab Requisition [facility] Pathology & Laboratory Medicine - [facility] [address] [place] [address] Outr Resulting Lab, Provider Social History Tobacco Use Types Packs/Day Years Used Date Smoking Tobacco: Never Assessed Comments Unknown Sex and Gender Information Value Date Recorded Sex Assigned at Not on file Legal Sex Female 3:08 EDT Gender Identity Not on file Sexual Orientation [...] Negative Negative 02/16/2024 9:25 EDT [facility] Blood VENOUS BLOOD / Unknown 02/15/2024 8:14 EDT 02/15/2024 17:02 EDT us Provider Outr Resulting Lab CHEMISTRY & BLOOD GA S ORDERABLES Final Result [facility] [address] [place] [address] * TRANSFERRIN (02/15/2024 8:14 EDT) Transferrin 322 201 - 352 mg/dL 02/18/2024 8:31 EDT [facility] Blood VENOUS BLOOD / Unknown 02/15/2024 8:14 EDT 02/15/2024 17:02 EDT us Provider Outr Resulting Lab CHEMISTRY & BLOOD GA S ORDERABLES Final Result [facility] [address] [place], [place] [id number] documented in this encounter Visit Diagnoses Not on filedocumented in this encounter
--- OUTSIDE RECORDS SUMMARY | 2024-09-22 08:08 | XMS_ITS | Clinical Summary ---
Author Organization [facility] Address [address] [place] [address] Care Team Providers Care Jelly Maker Name Role Phone Unavailable Primary Care [...] - 19+ 3-dose series) 09/24 COVID-19 Vaccine ( season) 2023 Hepatitis C Screen Completed 02/15/2024 Procedures Procedure Name Priority Date/Time Associated Diagnosis Comments HEPATITIS C AB W REFLEX TO HCV RNA BY PCR Routine 02/15/2024 8:14 EDT from Last 3 Months or Most Recently Relevant to Health Maintenance Results * HEPATITIS C AB W REFLEX TO HCV RNA BY PCR (02/15/2024 8:14 EDT) Hep C Antibody Negative Negative 02/16/2024 9:25 EDT [facility] Blood VENOUS BLOOD / Unknown 02/15/2024 8:14 EDT 02/15/2024 17:02 EDT us Provider Outr Resulting Lab CHEMISTRY & BLOOD GA S ORDERABLES Final Result [facility] [address] [place] [address] from Last 3 Months or Most Recently Relevant to Health Maintenance
--- OUTSIDE RECORDS SUMMARY | 2024-09-22 08:08 | XMS_ITS | Encounter Summary ---
Author Organization [facility] Address [address] [place] [address] Care Team Providers Care Second Operator Name Role Phone Unavailable Primary Care Provider Unavailabl e Encounter Details Date Type Department Care Team (Late st Contact Info) Description 04/30/2024 Lab Requisition [facility] Pathology & Laboratory Medicine - [facility] [address] [place] [address] Jaz Kc, NURSING DEPARTMENT CHAIRPERSON [address] [place] [phone] Encounter for other general examination Social History [...]
--- OUTSIDE RECORDS SUMMARY | 2024-09-22 08:08 | XMS_ITS | Referral Summary ---
Author Organization [facility] Address [address] [place] [address] Care Team Providers Care Enterprise Mobility Architect Name Role Phone Unavailable Primary Care [...] C Antibody Negative Negative 02/16/2024 9:25 EDT [facility] Blood VENOUS BLOOD / Unknown 02/15/2024 8:14 EDT 02/15/2024 17:02 EDT us Provider Outr Resulting Lab CHEMISTRY & BLOOD GA S ORDERABLES Final Result [facility] [address] [place] [address] from Last 3 Months or Most Recently Relevant to Health Maintenance
--- OUTSIDE RECORDS SUMMARY | 2024-09-22 08:08 | XMS_ITS | Encounter Summary ---
Author Organization [facility] Address [address] [place] [address] Care Team Providers Care Automotive Heavy Mechanic Name Role Phone Unavailable Primary Care Provider Unavailabl e Encounter Details Date Type Department Care Team (Late st Contact Info) Description 04/30/2024 Lab Requisition [facility] Pathology & Laboratory Medicine - [facility] [address] [place] [address] Jaz Kc, CITY MANAGER [address] [place] [phone] Encounter for other general examination Social History [...] types 16,18,31,33,35,39,45,51,52,56,58,59,66, and 68 is detected by band sawyer mediated amplification. High and intermediate risk HPV types are associated with most squamous intraepithelial lesions and cervical cancers. Pap Test CERVIX UTERI STRUCTURE / Unknown 04/29/2024 13:10 EDT 05/05/2024 13:24 EDT us Jaz Kc CITY MANAGER MICROBIOLOGY - GENERAL OR DERABLES Final Result [facility] [address] [place] [address] * PAP TEST (04/29/2024 13:10 EDT) Specimens A. Cervix and/or Endocervix , ThinPrep Imaging System with Manual Evaluation 05/06/2024 15:20 T [facility] Specimen Adequacy Satisfactory for Evaluation - transformation zone component present 05/06/2024 15:20 EDT [facility] General Categorization Negative for intraepithelial lesion or malignancy 05/06/2024 15:20 EDT [facility] Descriptive Diagnosis 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 05/06/2024 15:20 T [facility] Attestation . 05/06/2024 15:20 T [facility] at 1520 Clinical History See below 05/06/20 15:20 T [facility] HPV The result for the Human Papillomavirus (HPV) Detection-High Risk Types is Positive . E6 OR E7 mRNA from one or more types of HPV types 16,18,31,33,35,39 ,45,51,52,56,58,5 9,66, and 68 is detected by band sawyer mediated amplification. High and intermediate risk HPV types are associated with most squamous intraepithelial lesions and cervical cancers. Testing was performed on specimen [id number] and was resulted on 05/06/2024 1520 EDT by THANH, LAB INSTRUMENT RESULTS IN 05/06/2024 15:20 EDT [facility] Performing Lab [facility] 05/06/2024 15:20 T [facility] Scanned Images 05/06/2024 15:20 EDT [facility] Pap Test CERVIX UTERI STRUCTURE / Unknown 04/29/2024 13:10 EDT 04/30/2024 12:05 EDT us Jaz Kc CITY MANAGER PATHOLOGY ORDERABLES Monique l Result [facility] [address] [place] [address] documented in this encounter Visit Diagnoses Diagnosis Encounter for other general examination documented in this encounter
--- OUTSIDE RECORDS SUMMARY | 2024-09-22 08:08 | XMS_ITS | Encounter Summary ---
Author Organization [facility] Address [address] [place] [address] Care Team Providers Care Die Drawing Checker Name Role Phone Unavailable Primary Care Provider Unavailabl e Encounter Details Date Type Department Care Team (Late st Contact Info) Description 02/08/2024 Lab Requisition [facility] Pathology & Laboratory Medicine - [facility] [address] [place] [address] Outr Resulting Lab, Provider Social History Tobacco [...] Quantiferon Interpretation Negative Negative 02/11/2024 13:40 EDT [facility] Comment:No interferon-gamma response to M. tuberculosis antigens was detected. ??Infection with M. tuberculosis is unlikely. A single negative result does not exclude infection with M. tuberculosis. ??In patients at high risk for M. tuberculosis infection, a second test should be considered. TB1 Ag minus Nil 0.00 IU/ml 02/11/20 13:40 EDT [facility] TB2 Ag minus Nil 0.00 IU/mL 02/11/20 13:40 EDT [facility] Blood VENOUS BLOOD / Unknown 02/07/2024 13:18 EDT 02/11/2024 13:39 EDT us Provider Outr Resulting Lab IMMUNOLOGY AND SEROL OGY ORDERABLES Final Result Performing Organization Address City/[facility]/ZIP Co de Phone Number [facility] [address] [place] [address] * QUANTIFERON MITOGEN (PERFORMABLE) (02/07/2024 13:18 EDT) Blood VENOUS BLOOD / Unknown 02/07/2024 13:18 EDT 02/08/2024 17:22 EDT us Provider Outr Resulting Lab IMMUNOLOGY AND SEROL OGY ORDERABLES Final Result Performing Organization Address City/[facility] Co de Phone Number [facility] [address] [place] [phone] * QUANTIFERON TB2 (PERFORMABLE) (02/07/2024 13:18 EDT) Blood VENOUS BLOOD / Unknown 02/07/2024 13:18 EDT 02/08/2024 17:22 EDT us Provider Outr Resulting Lab IMMUNOLOGY AND SEROL OGY ORDERABLES Final Result Performing Organization Address City/[facility]/ZIP Co de Phone Number [facility] [address] [place] [id number] * QUANTIFERON TB1 (PERFORMABLE) (02/07/2024 13:18 EDT) Blood VENOUS BLOOD / Unknown 02/07/2024 13:18 EDT 02/08/2024 17:22 EDT us Provider Outr Resulting Lab IMMUNOLOGY AND SEROL OGY ORDERABLES Final Result [facility] [address] [place] [address] * QUANTIFERON NIL (PERFORMABLE) (02/07/2024 13:18 EDT) Blood VENOUS BLOOD / Unknown 02/07/2024 13:18 EDT 02/08/2024 17:22 EDT us Provider Outr Resulting Lab IMMUNOLOGY AND SEROL OGY ORDERABLES Final Result Performing Organization Address City/[facility]/ZIP Co de Phone Number [facility] [address] [place] [address] documented in this encounter Visit Diagnoses Not on filedocumented in this encounter
--- OUTSIDE RECORDS SUMMARY | 2024-09-24 08:20 | XMS_ITS | Referral Summary ---
Author Organization [facility] Address [address] [place] [id number] Care Team Providers Care Sanitation Manager Name Role Phone Unavailable Primary Care [...] Negative Negative 02/16/2024 9:25 EDT [facility] Blood VENOUS BLOOD / Unknown 02/15/2024 8:14 EDT 02/15/2024 17:02 EDT us Provider Outr Resulting Lab CHEMISTRY & BLOOD GA S ORDERABLES Final Result [facility] [address] [place] [address] from Last 3 Months or Most Recently Relevant to Health Maintenance
--- OUTSIDE RECORDS SUMMARY | 2024-09-24 08:20 | XMS_ITS | Encounter Summary ---
Author Organization [facility] Address [address] [place] [address] Care Team Providers Care Procedure Manager Name Role Phone Unavailable Primary Care Provider Unavailabl e Encounter Details Date Type Department Care Team (Late st Contact Info) Description 02/08/2024 Lab Requisition [facility] Pathology & Laboratory Medicine - [facility] [address] [place] [address] Outr Resulting Lab, Provider Social History Tobacco [...] Quantiferon Interpretation Negative Negative 02/11/2024 13:40 EDT [facility] Comment:No interferon-gamma response to M. tuberculosis antigens was detected. ??Infection with M. tuberculosis is unlikely. A single negative result does not exclude infection with M. tuberculosis. ??In patients at high risk for M. tuberculosis infection, a second test should be considered. TB1 Ag minus Nil 0.00 IU/ml 02/11/20 13:40 EDT [facility] TB2 Ag minus Nil 0.00 IU/mL 02/11/20 13:40 EDT [facility] Blood VENOUS BLOOD / Unknown 02/07/2024 13:18 EDT 02/11/2024 13:39 EDT us Provider Outr Resulting Lab IMMUNOLOGY AND SEROL OGY ORDERABLES Final Result Performing Organization Address City/[facility]/ZIP Co de Phone Number [facility] [address] [place] [address] * QUANTIFERON MITOGEN (PERFORMABLE) (02/07/2024 13:18 EDT) Blood VENOUS BLOOD / Unknown 02/07/2024 13:18 EDT 02/08/2024 17:22 EDT us Provider Outr Resulting Lab IMMUNOLOGY AND SEROL OGY ORDERABLES Final Result Performing Organization Address City/[facility] Co de Phone Number [facility] [address] [place] [phone] * QUANTIFERON TB2 (PERFORMABLE) (02/07/2024 13:18 EDT) Blood VENOUS BLOOD / Unknown 02/07/2024 13:18 EDT 02/08/2024 17:22 EDT us Provider Outr Resulting Lab IMMUNOLOGY AND SEROL OGY ORDERABLES Final Result Performing Organization Address City/[facility]/ZIP Co de Phone Number [facility] [address] [place] [address] * QUANTIFERON TB1 (PERFORMABLE) (02/07/2024 13:18 EDT) Blood VENOUS BLOOD / Unknown 02/07/2024 13:18 EDT 02/08/2024 17:22 EDT us Provider Outr Resulting Lab IMMUNOLOGY AND SEROL OGY ORDERABLES Final Result [facility] [address] [place] [address] * QUANTIFERON NIL (PERFORMABLE) (02/07/2024 13:18 EDT) Blood VENOUS BLOOD / Unknown 02/07/2024 13:18 EDT 02/08/2024 17:22 EDT us Provider Outr Resulting Lab IMMUNOLOGY AND SEROL OGY ORDERABLES Final Result Performing Organization Address City/[facility]/ZIP Co de Phone Number [facility] [address] [place] [address] documented in this encounter Visit Diagnoses Not on filedocumented in this encounter
--- OUTSIDE RECORDS SUMMARY | 2024-09-24 08:20 | XMS_ITS | Encounter Summary ---
Author Organization [facility] Address [address] [place] [address] Care Team Providers Care Refinery Operator Helper Crude Unit Name Role Phone Unavailable Primary Care Provider Unavailabl e Encounter Details Date Type Department Care Team (Late st Contact Info) Description 02/15/2024 Lab Requisition [facility] Pathology & Laboratory Medicine - [facility] [address] [place] [address] Outr Resulting Lab, Provider Social History Tobacco [...] C Antibody Negative Negative 02/16/2024 9:25 EDT [facility] Blood VENOUS BLOOD / Unknown 02/15/2024 8:14 EDT 02/15/2024 17:02 EDT us Provider Outr Resulting Lab CHEMISTRY & BLOOD GA S ORDERABLES Final Result [facility] [address] [place] [address] * TRANSFERRIN (02/15/2024 8:14 EDT) Transferrin 322 201 - 352 mg/dL 02/18/2024 8:31 EDT [facility] Blood VENOUS BLOOD / Unknown 02/15/2024 8:14 EDT 02/15/2024 17:02 EDT us Provider Outr Resulting Lab CHEMISTRY & BLOOD GA S ORDERABLES Final Result [facility] [address] [place], [place] [id number] documented in this encounter Visit Diagnoses Not on filedocumented in this encounter
--- OUTSIDE RECORDS SUMMARY | 2024-09-24 08:20 | XMS_ITS | Clinical Summary ---
Author Organization [facility] Address [address] [place] [address] Care Team Providers Care Incident Commander Name Role Phone Unavailable Primary Care Provider [...] 3-dose series) 09/24 COVID-19 Vaccine ( season) 2024 Hepatitis C Screen Completed 02/15/2024 Procedures Procedure [...] & BLOOD GA S ORDERABLES Final Result [facility] [address] [place] [address] from Last 3 Months or Most Recently Relevant to Health Maintenance
--- OUTSIDE RECORDS SUMMARY | 2024-09-24 08:20 | XMS_ITS | Encounter Summary ---
Author Organization [facility] Address [address] [place] [address] Care Team Providers Care Monkey Keeper Name Role Phone Unavailable Primary Care Provider Unavailabl e Encounter Details Date Type Department Care Team (Late st Contact Info) Description 04/30/2024 Lab Requisition [facility] Pathology & Laboratory Medicine - [facility] [address] [place] [address] Jaz Kc, CLICKER OPERATOR [address] [place] [phone] Encounter for other general examination Social History [...]
--- OUTSIDE RECORDS SUMMARY | 2024-09-24 08:20 | XMS_ITS | Encounter Summary ---
Author Organization [facility] Address [address] [place] [address] Care Team Providers Care Business Representative Name Role Phone Unavailable Primary Care Provider Unavailabl e Encounter Details Date Type Department Care Team (Late st Contact Info) Description 04/30/2024 Lab Requisition [facility] Pathology & Laboratory Medicine - [facility] [address] [place] [address] Jaz Kc, REVIEW ENGINEER [address] [place] [phone] Encounter for other general examination Social History [...] Positive( A) Negative 05/06/2024 15:20 EDT [facility] Comment:E6 OR E7 mRNA from o ne or more types of HPV types 16,18,31,33,35,39,45,51,52,56,58,59,66, and 68 is detected by dispatch lead mediated amplification. High and intermediate risk HPV types are associated with most squamous intraepithelial lesions and cervical cancers. Pap Test CERVIX UTERI STRUCTURE / Unknown 04/29/2024 13:10 EDT 05/05/2024 13:24 EDT us Jaz Kc REVIEW ENGINEER MICROBIOLOGY - GENERAL OR DERABLES Final Result [facility] [address] [place] [address] * PAP TEST (04/29/2024 13:10 EDT) Specimens A. 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 05/06/2024 15:20 T [facility] Attestation . 05/06/2024 15:20 T [facility] at 1520 Clinical History See below 05/06/20 15:20 T [facility] HPV The result for the Human Papillomavirus (HPV) Detection-High Risk Types is Positive . E6 OR E7 mRNA from one or more types of HPV types 16,18,31,33,35,39 ,45,51,52,56,58,5 9,66, and 68 is detected by dispatch lead mediated amplification. High and intermediate risk HPV types are associated with most squamous intraepithelial lesions and cervical cancers. Testing was performed on specimen [id number] and was resulted on 05/06/2024 1520 EDT by THANH, LAB INSTRUMENT RESULTS IN 05/06/2024 15:20 EDT [facility] Performing Lab [facility] 05/06/2024 15:20 T [facility] Scanned Images 05/06/2024 15:20 EDT [facility] Pap Test CERVIX UTERI STRUCTURE / Unknown 04/29/2024 13:10 EDT 04/30/2024 12:05 EDT us Jaz Kc REVIEW ENGINEER PATHOLOGY ORDERABLES Monique l Result [facility] [address] [place] [address] documented in this encounter Visit Diagnoses Diagnosis Encounter for other general examination documented in this encounter
--- OUTSIDE RECORDS SUMMARY | 2024-09-26 09:38 | XMS_ITS | Clinical Summary ---
Author Organization [facility] Address [address] [place] [address] Care Team Providers Care Wind Turbine Technician Name Role Phone Unavailable Primary Care [...] Negative Negative 02/16/2024 9:25 EDT [facility] Blood VENOUS BLOOD / Unknown 02/15/2024 8:14 EDT 02/15/2024 17:02 EDT us Provider Outr Resulting Lab CHEMISTRY & BLOOD GA S ORDERABLES Final Result [facility] [address] [place] [address] from Last 3 Months or Most Recently Relevant to Health Maintenance
--- OUTSIDE RECORDS SUMMARY | 2024-09-26 09:38 | XMS_ITS | Encounter Summary ---
Author Organization [facility] Address [address] [place] [address] Care Team Providers Care Learning Specialist Name Role Phone Unavailable Primary Care Provider Unavailabl e Encounter Details Date Type Department Care Team (Late st Contact Info) Description 04/30/2024 Lab Requisition [facility] Pathology & Laboratory Medicine - [facility] [address] [place] [address] Jaz Kc, SALES AND MARKETING DIRECTOR [address] [phone] Encounter for other general examination Social History [...] types 16,18,31,33,35,39,45,51,52,56,58,59,66, and 68 is detected by computer numerical control machinist mediated amplification. High and intermediate risk HPV types are associated with most squamous intraepithelial lesions and cervical cancers. Pap Test CERVIX UTERI STRUCTURE / Unknown 04/29/2024 13:10 EDT 05/05/2024 13:24 EDT us Jaz Kc SALES AND MARKETING DIRECTOR MICROBIOLOGY - GENERAL OR DERABLES Final Result [facility] [address] [place] [address] * PAP TEST (04/29/2024 13:10 EDT) Specimens A. Cervix and/or Endocervix , ThinPrep Imaging System with Manual Evaluation 05/06/2024 15:20 T [facility] Specimen Adequacy Satisfactory for Evaluation - transformation zone component present 05/06/2024 15:20 EDT [facility] General Categorization Negative for intraepithelial lesion or malignancy 05/06/2024 15:20 EDT [facility] Descriptive Diagnosis 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 05/06/2024 15:20 T [facility] Attestation . 05/06/2024 15:20 T [facility] at 1520 Clinical History See below 05/06/20 15:20 T [facility] HPV The result for the Human Papillomavirus (HPV) Detection-High Risk Types is Positive . E6 OR E7 mRNA from one or more types of HPV types 16,18,31,33,35,39 ,45,51,52,56,58,5 9,66, and 68 is detected by computer numerical control machinist mediated amplification. High and intermediate risk HPV types are associated with most squamous intraepithelial lesions and cervical cancers. Testing was performed on specimen [id number] and was resulted on 05/06/2024 1520 EDT by THANH, LAB INSTRUMENT RESULTS IN 05/06/2024 15:20 EDT [facility] Performing Lab [facility] 05/06/2024 15:20 T [facility] Scanned Images 05/06/2024 15:20 EDT [facility] Pap Test CERVIX UTERI STRUCTURE / Unknown 04/29/2024 13:10 EDT 04/30/2024 12:05 EDT us Jaz Kc SALES AND MARKETING DIRECTOR PATHOLOGY ORDERABLES Monique l Result [facility] [address] [place] [address] documented in this encounter Visit Diagnoses Diagnosis Encounter for other general examination documented in this encounter
--- OUTSIDE RECORDS SUMMARY | 2024-09-26 09:38 | XMS_ITS | Encounter Summary ---
Author Organization [facility] Address [address] [place] [address] Care Team Providers Care Mine Car Mechanic Name Role Phone Unavailable Primary Care Provider Unavailabl e Encounter Details Date Type Department Care Team (Late st Contact Info) Description 02/08/2024 Lab Requisition [facility] Pathology & Laboratory Medicine - [facility] [address] [place] [address] Outr Resulting Lab, Provider Social History Tobacco [...] 13:40 EDT [facility] Comment:No interferon-gamma response to M. tuberculosis antigens was detected. ??Infection with M. tuberculosis is unlikely. A single negative result does not exclude infection with M. tuberculosis. ??In patients at high risk for M. tuberculosis infection, a second test should be considered. TB1 Ag minus Nil 0.00 IU/ml 02/11/20 13:40 EDT [facility] TB2 Ag minus Nil 0.00 IU/mL 02/11/20 13:40 EDT [facility] Blood VENOUS BLOOD / Unknown 02/07/2024 13:18 EDT 02/11/2024 13:39 EDT us Provider Outr Resulting Lab IMMUNOLOGY AND SEROL OGY ORDERABLES Final Result Performing Organization Address City/[facility]/ZIP Co de Phone Number [facility] [address] [place] [address] * QUANTIFERON MITOGEN (PERFORMABLE) (02/07/2024 13:18 EDT) Blood VENOUS BLOOD / Unknown 02/07/2024 13:18 EDT 02/08/2024 17:22 EDT us Provider Outr Resulting Lab IMMUNOLOGY AND SEROL OGY ORDERABLES Final Result Performing Organization Address City/[facility] Co de Phone Number [facility] [address] [place] [address] * QUANTIFERON TB2 (PERFORMABLE) (02/07/2024 13:18 EDT) Blood VENOUS BLOOD / Unknown 02/07/2024 13:18 EDT 02/08/2024 17:22 EDT us Provider Outr Resulting Lab IMMUNOLOGY AND SEROL OGY ORDERABLES Final Result Performing Organization Address City/[facility]/ZIP Co de Phone Number [facility] [address] [place] [address] * QUANTIFERON TB1 (PERFORMABLE) (02/07/2024 13:18 EDT) Blood VENOUS BLOOD / Unknown 02/07/2024 13:18 EDT 02/08/2024 17:22 EDT us Provider Outr Resulting Lab IMMUNOLOGY AND SEROL OGY ORDERABLES Final Result [facility] [address] [place] [address] * QUANTIFERON NIL (PERFORMABLE) (02/07/2024 13:18 EDT) Blood VENOUS BLOOD / Unknown 02/07/2024 13:18 EDT 02/08/2024 17:22 EDT us Provider Outr Resulting Lab IMMUNOLOGY AND SEROL OGY ORDERABLES Final Result Performing Organization Address City/[facility]/ZIP Co de Phone Number [facility] [address] [place] [address] documented in this encounter Visit Diagnoses Not on filedocumented in this encounter
--- OUTSIDE RECORDS SUMMARY | 2024-09-26 09:38 | XMS_ITS | Encounter Summary ---
Author Organization [facility] Address [address] [place] [address] Care Team Providers Care Anthropology Instructor Name Role Phone Unavailable Primary Care Provider Unavailabl e Encounter Details Date Type Department Care Team (Late st Contact Info) Description 02/15/2024 Lab Requisition [facility] Pathology & Laboratory Medicine - [facility] [address] [place] [address] Outr Resulting Lab, Provider Social History Tobacco [...] C Antibody Negative Negative 02/16/2024 9:25 EDT [facility] Blood VENOUS BLOOD / Unknown 02/15/2024 8:14 EDT 02/15/2024 17:02 EDT us Provider Outr Resulting Lab CHEMISTRY & BLOOD GA S ORDERABLES Final Result [facility] [address] [place] [address] * TRANSFERRIN (02/15/2024 8:14 EDT) Transferrin 322 201 - 352 mg/dL 02/18/2024 8:31 EDT [facility] Blood VENOUS BLOOD / Unknown 02/15/2024 8:14 EDT 02/15/2024 17:02 EDT us Provider Outr Resulting Lab CHEMISTRY & BLOOD GA S ORDERABLES Final Result [facility] [address] [place], [place] [phone] documented in this encounter Visit Diagnoses Not on filedocumented in this encounter
--- OUTSIDE RECORDS SUMMARY | 2024-09-26 09:38 | XMS_ITS | Referral Summary ---
Author Organization [facility] Address [address] [place] [address] Care Team Providers Care Baggage Checker Name Role Phone Unavailable Primary Care [...] C Antibody Negative Negative 02/16/2024 9:25 EDT [facility] Blood VENOUS BLOOD / Unknown 02/15/2024 8:14 EDT 02/15/2024 17:02 EDT us Provider Outr Resulting Lab CHEMISTRY & BLOOD GA S ORDERABLES Final Result [facility] [address] [place] [address] from Last 3 Months or Most Recently Relevant to Health Maintenance
--- OUTSIDE RECORDS SUMMARY | 2024-09-26 09:38 | XMS_ITS | Encounter Summary ---
Author Organization [facility] Address [address] [place] [address] Care Team Providers Care Lining Baster Name Role Phone Unavailable Primary Care Provider Unavailabl e Encounter Details Date Type Department Care Team (Late st Contact Info) Description 04/30/2024 Lab Requisition [facility] Pathology & Laboratory Medicine - [facility] [address] [place] [address] Jaz Kc, EQUIPMENT WORKER [address] [place] [phone] Encounter for other general examination Social History [...]
--- OUTSIDE RECORDS SUMMARY | 2024-09-29 08:05 | XMS_ITS | Encounter Summary ---
Author Organization [facility] Address [address] [place] [address] Care Team Providers Care Early Childhood Coordinator Name Role Phone Unavailable Primary Care Provider Unavailabl e Encounter Details Date Type Department Care Team (Late st Contact Info) Description 04/30/2024 Lab Requisition [facility] Pathology & Laboratory Medicine - [facility] [address] [place] [address] Jaz Kc, COMMERCIAL SALES REPRESENTATIVE [address] [place] [phone] Encounter for other general examination Social History [...]
--- OUTSIDE RECORDS SUMMARY | 2024-09-29 08:05 | XMS_ITS | Referral Summary ---
Author Organization [facility] Address [address] [place] [address] Care Team Providers Care Quality Control Technician Name Role Phone Unavailable Primary Care [...] C Antibody Negative Negative 02/16/2024 9:25 EDT [facility] Blood VENOUS BLOOD / Unknown 02/15/2024 8:14 EDT 02/15/2024 17:02 EDT us Provider Outr Resulting Lab CHEMISTRY & BLOOD GA S ORDERABLES Final Result [facility] [address] [place] [address] from Last 3 Months or Most Recently Relevant to Health Maintenance
--- OUTSIDE RECORDS SUMMARY | 2024-09-29 08:05 | XMS_ITS | Clinical Summary ---
Author Organization [facility] Address [address] [place] [address] Care Team Providers Care Cnc Maintenance Mechanic Name Role Phone Unavailable Primary Care [...] & BLOOD GA S ORDERABLES Final Result [facility] [address] [place] [address] from Last 3 Months or Most Recently Relevant to Health Maintenance
--- OUTSIDE RECORDS SUMMARY | 2024-09-29 08:05 | XMS_ITS | Encounter Summary ---
Author Organization [facility] Address [address] [place] [address] Care Team Providers Care Presidential Support Specialist Name Role Phone Unavailable Primary Care Provider Unavailabl e Encounter Details Date Type Department Care Team (Late st Contact Info) Description 02/08/2024 Lab Requisition [facility] Pathology & Laboratory Medicine - [facility] [address] [place] [address] Outr Resulting Lab, Provider Social History Tobacco [...] Quantiferon Interpretation Negative Negative 02/11/2024 13:40 EDT [facility] Comment:No interferon-gamma response to M. tuberculosis antigens was detected. ??Infection with M. tuberculosis is unlikely. A single negative result does not exclude infection with M. tuberculosis. ??In patients at high risk for M. tuberculosis infection, a second test should be considered. TB1 Ag minus Nil 0.00 IU/ml 02/11/20 13:40 EDT [facility] TB2 Ag minus Nil 0.00 IU/mL 02/11/20 13:40 EDT [facility] Blood VENOUS BLOOD / Unknown 02/07/2024 13:18 EDT 02/11/2024 13:39 EDT us Provider Outr Resulting Lab IMMUNOLOGY AND SEROL OGY ORDERABLES Final Result Performing Organization Address City/[facility]/ZIP Co de Phone Number [facility] [address] [place] [address] * QUANTIFERON MITOGEN (PERFORMABLE) (02/07/2024 13:18 EDT) Blood VENOUS BLOOD / Unknown 02/07/2024 13:18 EDT 02/08/2024 17:22 EDT us Provider Outr Resulting Lab IMMUNOLOGY AND SEROL OGY ORDERABLES Final Result Performing Organization Address City/[facility] Co de Phone Number [facility] [address] [place] [address] * QUANTIFERON TB2 (PERFORMABLE) (02/07/2024 13:18 EDT) Blood VENOUS BLOOD / Unknown 02/07/2024 13:18 EDT 02/08/2024 17:22 EDT us Provider Outr Resulting Lab IMMUNOLOGY AND SEROL OGY ORDERABLES Final Result Performing Organization Address City/[facility]/ZIP Co de Phone Number [facility] [address] [place] [address] * QUANTIFERON TB1 (PERFORMABLE) (02/07/2024 13:18 EDT) Blood VENOUS BLOOD / Unknown 02/07/2024 13:18 EDT 02/08/2024 17:22 EDT us Provider Outr Resulting Lab IMMUNOLOGY AND SEROL OGY ORDERABLES Final Result [facility] [address] [place] [address] * QUANTIFERON NIL (PERFORMABLE) (02/07/2024 13:18 EDT) Blood VENOUS BLOOD / Unknown 02/07/2024 13:18 EDT 02/08/2024 17:22 EDT us Provider Outr Resulting Lab IMMUNOLOGY AND SEROL OGY ORDERABLES Final Result Performing Organization Address City/[facility]/ZIP Co de Phone Number [facility] [address] [place] [address] documented in this encounter Visit Diagnoses Not on filedocumented in this encounter
--- OUTSIDE RECORDS SUMMARY | 2024-09-29 08:05 | XMS_ITS | Encounter Summary ---
Author Organization [facility] Address [address] [place] [address] Care Team Providers Care Vegetable Inspector Name Role Phone Unavailable Primary Care Provider Unavailabl e Encounter Details Date Type Department Care Team (Late st Contact Info) Description 04/30/2024 Lab Requisition [facility] Pathology & Laboratory Medicine - [facility] [address] [place] [address] Jaz Kc, PULMONOLOGIST/INTENSIVIST [address] [place] [address] Encounter for other general examination [...] A) Negative 05/06/2024 15:20 EDT [facility] Comment:E6 OR E7 mRNA from o ne or more types of HPV types 16,18,31,33,35,39,45,51,52,56,58,59,66, and 68 is detected by computer numerical control grinder mediated amplification. High and intermediate risk HPV types are associated with most squamous intraepithelial lesions and cervical cancers. Pap Test CERVIX UTERI STRUCTURE / Unknown 04/29/2024 13:10 EDT 05/05/2024 13:24 EDT us Jaz Kc PULMONOLOGIST/INTENSIVIST MICROBIOLOGY - GENERAL OR DERABLES Final Result [facility] [address] [place] [address] * PAP TEST (04/29/2024 13:10 EDT) Specimens A. Cervix and/or Endocervix , ThinPrep Imaging System with Manual Evaluation 05/06/2024 15:20 T [facility] Specimen Adequacy Satisfactory for Evaluation - transformation zone component present 05/06/2024 15:20 EDT [facility] General Categorization Negative for intraepithelial lesion or malignancy 05/06/2024 15:20 EDT [facility] Descriptive Diagnosis 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 05/06/2024 15:20 T [facility] Attestation . 05/06/2024 15:20 T [facility] at 1520 Clinical History See below 05/06/20 15:20 T [facility] HPV The result for the Human Papillomavirus (HPV) Detection-High Risk Types is Positive . E6 OR E7 mRNA from one or more types of HPV types 16,18,31,33,35,39 ,45,51,52,56,58,5 9,66, and 68 is detected by computer numerical control grinder mediated amplification. High and intermediate risk HPV types are associated with most squamous intraepithelial lesions and cervical cancers. Testing was performed on specimen [id number] and was resulted on 05/06/2024 1520 EDT by THANH, LAB INSTRUMENT RESULTS IN 05/06/2024 15:20 EDT [facility] Performing Lab [facility] 05/06/2024 15:20 T [facility] Scanned Images 05/06/2024 15:20 EDT [facility] Pap Test CERVIX UTERI STRUCTURE / Unknown 04/29/2024 13:10 EDT 04/30/2024 12:05 EDT us Jaz Kc PULMONOLOGIST/INTENSIVIST PATHOLOGY ORDERABLES Monique l Result [facility] [address] [place] [address] documented in this encounter Visit Diagnoses Diagnosis Encounter for other general examination documented in this encounter
--- OUTSIDE RECORDS SUMMARY | 2024-09-29 08:05 | XMS_ITS | Encounter Summary ---
Author Organization [facility] Address [address] [place] [address] Care Team Providers Care Brand Leader Name Role Phone Unavailable Primary Care Provider Unavailabl e Encounter Details Date Type Department Care Team (Late st Contact Info) Description 02/15/2024 Lab Requisition [facility] Pathology & Laboratory Medicine - [facility] [address] [place] [address] Outr Resulting Lab, Provider Social History Tobacco [...] C Antibody Negative Negative 02/16/2024 9:25 EDT [facility] Blood VENOUS BLOOD / Unknown 02/15/2024 8:14 EDT 02/15/2024 17:02 EDT us Provider Outr Resulting Lab CHEMISTRY & BLOOD GA S ORDERABLES Final Result [facility] [address] [place] [address] * TRANSFERRIN (02/15/2024 8:14 EDT) Transferrin 322 201 - 352 mg/dL 02/18/2024 8:31 EDT [facility] Blood VENOUS BLOOD / Unknown 02/15/2024 8:14 EDT 02/15/2024 17:02 EDT us Provider Outr Resulting Lab CHEMISTRY & BLOOD GA S ORDERABLES Final Result [facility] [address] [place], [place] [id number] documented in this encounter Visit Diagnoses Not on filedocumented in this encounter
--- OUTSIDE RECORDS SUMMARY | 2024-10-01 08:07 | XMS_ITS | Encounter Summary ---
Author Organization [facility] Address [address] [place] [address] Care Team Providers Care Capacitor Tester Name Role Phone Unavailable Primary Care Provider Unavailabl e Encounter Details Date Type Department Care Team (Late st Contact Info) Description 02/15/2024 Lab Requisition [facility] Pathology & Laboratory Medicine - [facility] [address] [place] [address] Outr Resulting Lab, Provider Social History Tobacco [...] C Antibody Negative Negative 02/16/2024 9:25 EDT [facility] Blood VENOUS BLOOD / Unknown 02/15/2024 8:14 EDT 02/15/2024 17:02 EDT us Provider Outr Resulting Lab CHEMISTRY & BLOOD GA S ORDERABLES Final Result [facility] [address] [place] [address] * TRANSFERRIN (02/15/2024 8:14 EDT) Transferrin 322 201 - 352 mg/dL 02/18/2024 8:31 EDT [facility] Blood VENOUS BLOOD / Unknown 02/15/2024 8:14 EDT 02/15/2024 17:02 EDT us Provider Outr Resulting Lab CHEMISTRY & BLOOD GA S ORDERABLES Final Result [facility] [address] [place], [place] [phone] documented in this encounter Visit Diagnoses Not on filedocumented in this encounter
--- OUTSIDE RECORDS SUMMARY | 2024-10-01 08:07 | XMS_ITS | Encounter Summary ---
Author Organization [facility] Address [address] [place] [address] Care Team Providers Care Lime Kiln And Recausticizing Operator Name Role Phone Unavailable Primary Care Provider Unavailabl e Encounter Details Date Type Department Care Team (Late st Contact Info) Description 04/30/2024 Lab Requisition [facility] Pathology & Laboratory Medicine - [facility] [address] [place] [address] Jaz Kc, ASSOCIATE DIRECTOR CAREER SERVICES [address] [place] [phone] Encounter for other general examination Social History [...]
--- OUTSIDE RECORDS SUMMARY | 2024-10-01 08:07 | XMS_ITS | Clinical Summary ---
Author Organization [facility] Address [address] [place] [address] Care Team Providers Care Clinical Resource Coordinator Name Role Phone Unavailable Primary Care [...] [facility] [address] [place] [address] from Last 3 Months or Most Recently Relevant to Health Maintenance
--- OUTSIDE RECORDS SUMMARY | 2024-10-01 08:07 | XMS_ITS | Encounter Summary ---
Author Organization [facility] Address [address] [place] [id number] Care Team Providers Care Assault Amphibious Vehicle Officer Name Role Phone Unavailable Primary Care Provider Unavailabl e Encounter Details Date Type Department Care Team (Late st Contact Info) Description 02/08/2024 Lab Requisition [facility] Pathology & Laboratory Medicine - [facility] [address] [place] [address] Outr Resulting Lab, Provider Social History Tobacco [...] Negative Negative 02/11/2024 13:40 EDT [facility] Comment:No interferon-gamma response to M. tuberculosis antigens was detected. ??Infection with M. tuberculosis is unlikely. A single negative result does not exclude infection with M. tuberculosis. ??In patients at high risk for M. tuberculosis infection, a second test should be considered. TB1 Ag minus Nil 0.00 IU/ml 02/11/20 13:40 EDT [facility] TB2 Ag minus Nil 0.00 IU/mL 02/11/20 13:40 EDT [facility] Blood VENOUS BLOOD / Unknown 02/07/2024 13:18 EDT 02/11/2024 13:39 EDT us Provider Outr Resulting Lab IMMUNOLOGY AND SEROL OGY ORDERABLES Final Result Performing Organization Address City/[facility]/ZIP Co de Phone Number [facility] [address] [place] [address] * QUANTIFERON MITOGEN (PERFORMABLE) (02/07/2024 13:18 EDT) Blood VENOUS BLOOD / Unknown 02/07/2024 13:18 EDT 02/08/2024 17:22 EDT us Provider Outr Resulting Lab IMMUNOLOGY AND SEROL OGY ORDERABLES Final Result Performing Organization Address City/[facility] Co de Phone Number [facility] [address] [place] [phone] * QUANTIFERON TB2 (PERFORMABLE) (02/07/2024 13:18 EDT) Blood VENOUS BLOOD / Unknown 02/07/2024 13:18 EDT 02/08/2024 17:22 EDT us Provider Outr Resulting Lab IMMUNOLOGY AND SEROL OGY ORDERABLES Final Result Performing Organization Address City/[facility]/ZIP Co de Phone Number [facility] [address] [place] [phone] * QUANTIFERON TB1 (PERFORMABLE) (02/07/2024 13:18 EDT) Blood VENOUS BLOOD / Unknown 02/07/2024 13:18 EDT 02/08/2024 17:22 EDT us Provider Outr Resulting Lab IMMUNOLOGY AND SEROL OGY ORDERABLES Final Result [facility] [address] [place] [address] * QUANTIFERON NIL (PERFORMABLE) (02/07/2024 13:18 EDT) Blood VENOUS BLOOD / Unknown 02/07/2024 13:18 EDT 02/08/2024 17:22 EDT us Provider Outr Resulting Lab IMMUNOLOGY AND SEROL OGY ORDERABLES Final Result Performing Organization Address City/[facility]/ZIP Co de Phone Number [facility] [address] [place] [address] documented in this encounter Visit Diagnoses Not on filedocumented in this encounter
--- OUTSIDE RECORDS SUMMARY | 2024-10-01 08:07 | XMS_ITS | Encounter Summary ---
Author Organization [facility] Address [address] [place] [address] Care Team Providers Care Mold Filling Operator Name Role Phone Unavailable Primary Care Provider Unavailabl e Encounter Details Date Type Department Care Team (Late st Contact Info) Description 04/30/2024 Lab Requisition [facility] Pathology & Laboratory Medicine - [facility] [address] [place] [address] Jaz Kc, CHILD CAREGIVER PRIVATE HOME [address] [address] Encounter for other general examination [...] PCR Positive( A) Negative 05/06/2024 15:20 EDT [facility] Comment:E6 OR E7 mRNA from o ne or more types of HPV types 16,18,31,33,35,39,45,51,52,56,58,59,66, and 68 is detected by medical driver mediated amplification. High and intermediate risk HPV types are associated with most squamous intraepithelial lesions and cervical cancers. Pap Test CERVIX UTERI STRUCTURE / Unknown 04/29/2024 13:10 EDT 05/05/2024 13:24 EDT us Jaz Kc CHILD CAREGIVER PRIVATE HOME MICROBIOLOGY - GENERAL OR DERABLES Final Result [facility] [address] [place] [address] * PAP TEST (04/29/2024 13:10 EDT) Specimens A. Cervix and/or Endocervix , ThinPrep Imaging System with Manual Evaluation 05/06/2024 15:20 T [facility] Specimen Adequacy Satisfactory for Evaluation - transformation zone component present 05/06/2024 15:20 EDT [facility] General Categorization Negative for intraepithelial lesion or malignancy 05/06/2024 15:20 EDT [facility] Descriptive Diagnosis 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 05/06/2024 15:20 T [facility] Attestation . 05/06/2024 15:20 T [facility] at 1520 Clinical History See below 05/06/20 15:20 T [facility] HPV The result for the Human Papillomavirus (HPV) Detection-High Risk Types is Positive . E6 OR E7 mRNA from one or more types of HPV types 16,18,31,33,35,39 ,45,51,52,56,58,5 9,66, and 68 is detected by medical driver mediated amplification. High and intermediate risk HPV types are associated with most squamous intraepithelial lesions and cervical cancers. Testing was performed on specimen [id number] and was resulted on 05/06/2024 1520 EDT by THANH, LAB INSTRUMENT RESULTS IN 05/06/2024 15:20 EDT [facility] Performing Lab [facility] 05/06/2024 15:20 T [facility] Scanned Images 05/06/2024 15:20 EDT [facility] Pap Test CERVIX UTERI STRUCTURE / Unknown 04/29/2024 13:10 EDT 04/30/2024 12:05 EDT us Jaz Kc CHILD CAREGIVER PRIVATE HOME PATHOLOGY ORDERABLES Monique l Result [facility] [address] [place] [address] documented in this encounter Visit Diagnoses Diagnosis Encounter for other general examination documented in this encounter
--- OUTSIDE RECORDS SUMMARY | 2024-10-01 08:07 | XMS_ITS | Referral Summary ---
Author Organization [facility] Address [address] [place] [id number] Care Team Providers Care Marketing Senior Recruiter Name Role Phone Unavailable Primary Care Provider [...] & BLOOD GA S ORDERABLES Final Result [facility] [address] [place] [address] from Last 3 Months or Most Recently Relevant to Health Maintenance
--- OUTSIDE RECORDS SUMMARY | 2024-10-03 08:07 | XMS_ITS | Encounter Summary ---
Author Organization [facility] Address [address] [place] [address] Care Team Providers Care Real Estate Rental Agent Name Role Phone Unavailable Primary Care Provider Unavailabl e Encounter Details Date Type Department Care Team (Late st Contact Info) Description 04/30/2024 Lab Requisition [facility] Pathology & Laboratory Medicine - [facility] [address] [place] [address] Jaz Kc, MAINTENANCE CARPENTER [address] [phone] Encounter for other general examination Social History [...]
--- OUTSIDE RECORDS SUMMARY | 2024-10-03 08:07 | XMS_ITS | Clinical Summary ---
Author Organization [facility] Address [address] [place] [address] Care Team Providers Care Product Picker Name Role Phone Unavailable Primary Care Provider [...] [facility] [address] [place] [address] from Last 3 Months or Most Recently Relevant to Health Maintenance
--- OUTSIDE RECORDS SUMMARY | 2024-10-03 08:07 | XMS_ITS | Encounter Summary ---
Author Organization [facility] Address [address] [place] [address] Care Team Providers Care Supervisor Blast Furnace Name Role Phone Unavailable Primary Care Provider Unavailabl e Encounter Details Date Type Department Care Team (Late st Contact Info) Description 02/08/2024 Lab Requisition [facility] Pathology & Laboratory Medicine - [facility] [address] [place] [address] Outr Resulting Lab, Provider Social History Tobacco [...] Negative Negative 02/11/2024 13:40 EDT [facility] Comment:No interferon-gamma response to M. tuberculosis antigens was detected. ??Infection with M. tuberculosis is unlikely. A single negative result does not exclude infection with M. tuberculosis. ??In patients at high risk for M. tuberculosis infection, a second test should be considered. TB1 Ag minus Nil 0.00 IU/ml 02/11/20 13:40 EDT [facility] TB2 Ag minus Nil 0.00 IU/mL 02/11/20 13:40 EDT [facility] Blood VENOUS BLOOD / Unknown 02/07/2024 13:18 EDT 02/11/2024 13:39 EDT us Provider Outr Resulting Lab IMMUNOLOGY AND SEROL OGY ORDERABLES Final Result Performing Organization Address City/[facility]/ZIP Co de Phone Number [facility] [address] [place] [address] * QUANTIFERON MITOGEN (PERFORMABLE) (02/07/2024 13:18 EDT) Blood VENOUS BLOOD / Unknown 02/07/2024 13:18 EDT 02/08/2024 17:22 EDT us Provider Outr Resulting Lab IMMUNOLOGY AND SEROL OGY ORDERABLES Final Result Performing Organization Address City/[facility] Co de Phone Number [facility] [address] [place] [phone] * QUANTIFERON TB2 (PERFORMABLE) (02/07/2024 13:18 EDT) Blood VENOUS BLOOD / Unknown 02/07/2024 13:18 EDT 02/08/2024 17:22 EDT us Provider Outr Resulting Lab IMMUNOLOGY AND SEROL OGY ORDERABLES Final Result Performing Organization Address City/[facility]/ZIP Co de Phone Number [facility] [address] [place] [phone] * QUANTIFERON TB1 (PERFORMABLE) (02/07/2024 13:18 EDT) Blood VENOUS BLOOD / Unknown 02/07/2024 13:18 EDT 02/08/2024 17:22 EDT us Provider Outr Resulting Lab IMMUNOLOGY AND SEROL OGY ORDERABLES Final Result [facility] [address] [place] [address] * QUANTIFERON NIL (PERFORMABLE) (02/07/2024 13:18 EDT) Blood VENOUS BLOOD / Unknown 02/07/2024 13:18 EDT 02/08/2024 17:22 EDT us Provider Outr Resulting Lab IMMUNOLOGY AND SEROL OGY ORDERABLES Final Result Performing Organization Address City/[facility]/ZIP Co de Phone Number [facility] [address] [place] [address] documented in this encounter Visit Diagnoses Not on filedocumented in this encounter
--- OUTSIDE RECORDS SUMMARY | 2024-10-03 08:07 | XMS_ITS | Referral Summary ---
Author Organization [facility] Address [address] [place] [address] Care Team Providers Care Solid Waste Engineer Name Role Phone Unavailable Primary Care [...] C Antibody Negative Negative 02/16/2024 9:25 EDT [facility] Blood VENOUS BLOOD / Unknown 02/15/2024 8:14 EDT 02/15/2024 17:02 EDT us Provider Outr Resulting Lab CHEMISTRY & BLOOD GA S ORDERABLES Final Result [facility] [address] [place] [address] from Last 3 Months or Most Recently Relevant to Health Maintenance
--- OUTSIDE RECORDS SUMMARY | 2024-10-03 08:07 | XMS_ITS | Encounter Summary ---
Author Organization [facility] Address [address] [place] [address] Care Team Providers Care Manager Wound Name Role Phone Unavailable Primary Care Provider Unavailabl e Encounter Details Date Type Department Care Team (Late st Contact Info) Description 02/15/2024 Lab Requisition [facility] Pathology & Laboratory Medicine - [facility] [address] [place] [address] Outr Resulting Lab, Provider Social History Tobacco [...] Negative Negative 02/16/2024 9:25 EDT [facility] Blood VENOUS BLOOD / Unknown 02/15/2024 8:14 EDT 02/15/2024 17:02 EDT us Provider Outr Resulting Lab CHEMISTRY & BLOOD GA S ORDERABLES Final Result [facility] [address] [place] [address] * TRANSFERRIN (02/15/2024 8:14 EDT) Transferrin 322 201 - 352 mg/dL 02/18/2024 8:31 EDT [facility] Blood VENOUS BLOOD / Unknown 02/15/2024 8:14 EDT 02/15/2024 17:02 EDT us Provider Outr Resulting Lab CHEMISTRY & BLOOD GA S ORDERABLES Final Result [facility] [address] [place], [place] [id number] documented in this encounter Visit Diagnoses Not on filedocumented in this encounter
--- OUTSIDE RECORDS SUMMARY | 2024-10-03 08:07 | XMS_ITS | Encounter Summary ---
Author Organization [facility] Address [address] [place] [address] Care Team Providers Care Assisted Living Assistant Name Role Phone Unavailable Primary Care Provider Unavailabl e Encounter Details Date Type Department Care Team (Late st Contact Info) Description 04/30/2024 Lab Requisition [facility] Pathology & Laboratory Medicine - [facility] [address] [place] [address] Jaz Kc, LEAD DENTAL ASSISTANT [address] [place] [phone] Encounter for other general examination Social History [...] A) Negative 05/06/2024 15:20 EDT [facility] Comment:E6 OR E7 mRNA from o ne or more types of HPV types 16,18,31,33,35,39,45,51,52,56,58,59,66, and 68 is detected by rn admission mediated amplification. High and intermediate risk HPV types are associated with most squamous intraepithelial lesions and cervical cancers. Pap Test CERVIX UTERI STRUCTURE / Unknown 04/29/2024 13:10 EDT 05/05/2024 13:24 EDT us Jaz Kc LEAD DENTAL ASSISTANT MICROBIOLOGY - GENERAL OR DERABLES Final Result [facility] [address] [place] [address] * PAP TEST (04/29/2024 13:10 EDT) Specimens A. Cervix and/or Endocervix , ThinPrep Imaging System with Manual Evaluation 05/06/2024 15:20 T [facility] Specimen Adequacy Satisfactory for Evaluation - transformation zone component present 05/06/2024 15:20 EDT [facility] General Categorization Negative for intraepithelial lesion or malignancy 05/06/2024 15:20 EDT [facility] Descriptive Diagnosis 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 05/06/2024 15:20 T [facility] Attestation . 05/06/2024 15:20 T [facility] at 1520 Clinical History See below 05/06/20 15:20 T [facility] HPV The result for the Human Papillomavirus (HPV) Detection-High Risk Types is Positive . E6 OR E7 mRNA from one or more types of HPV types 16,18,31,33,35,39 ,45,51,52,56,58,5 9,66, and 68 is detected by rn admission mediated amplification. High and intermediate risk HPV types are associated with most squamous intraepithelial lesions and cervical cancers. Testing was performed on specimen [id number] and was resulted on 05/06/2024 1520 EDT by THANH, LAB INSTRUMENT RESULTS IN 05/06/2024 15:20 EDT [facility] Performing Lab [facility] 05/06/2024 15:20 T [facility] Scanned Images 05/06/2024 15:20 EDT [facility] Pap Test CERVIX UTERI STRUCTURE / Unknown 04/29/2024 13:10 EDT 04/30/2024 12:05 EDT us Jaz Kc LEAD DENTAL ASSISTANT PATHOLOGY ORDERABLES Monique l Result [facility] [address] [place] [address] documented in this encounter Visit Diagnoses Diagnosis Encounter for other general examination documented in this encounter
--- OUTSIDE RECORDS SUMMARY | 2024-10-06 08:05 | XMS_ITS | Clinical Summary ---
Author Organization [facility] Address [address] [place] [address] Care Team Providers Care Gastroenterology Nurse Name Role Phone Unavailable Primary Care Provider [...] C Antibody Negative Negative 02/16/2024 9:25 EDT [facility] Blood VENOUS BLOOD / Unknown 02/15/2024 8:14 EDT 02/15/2024 17:02 EDT us Provider Outr Resulting Lab CHEMISTRY & BLOOD GA S ORDERABLES Final Result [facility] [address] [place] [address] from Last 3 Months or Most Recently Relevant to Health Maintenance
--- OUTSIDE RECORDS SUMMARY | 2024-10-06 08:05 | XMS_ITS | Encounter Summary ---
Author Organization [facility] Address [address] [place] [address] Care Team Providers Care Sales And Operations Trainee Name Role Phone Unavailable Primary Care Provider Unavailabl e Encounter Details Date Type Department Care Team (Late st Contact Info) Description 02/15/2024 Lab Requisition [facility] Pathology & Laboratory Medicine - [facility] [address] [place] [address] Outr Resulting Lab, Provider Social History Tobacco [...] C Antibody Negative Negative 02/16/2024 9:25 EDT [facility] Blood VENOUS BLOOD / Unknown 02/15/2024 8:14 EDT 02/15/2024 17:02 EDT us Provider Outr Resulting Lab CHEMISTRY & BLOOD GA S ORDERABLES Final Result [facility] [address] [place] [address] * TRANSFERRIN (02/15/2024 8:14 EDT) Transferrin 322 201 - 352 mg/dL 02/18/2024 8:31 EDT [facility] Blood VENOUS BLOOD / Unknown 02/15/2024 8:14 EDT 02/15/2024 17:02 EDT us Provider Outr Resulting Lab CHEMISTRY & BLOOD GA S ORDERABLES Final Result [facility] [address] [place], [place] [id number] documented in this encounter Visit Diagnoses Not on filedocumented in this encounter
--- OUTSIDE RECORDS SUMMARY | 2024-10-06 08:05 | XMS_ITS | Encounter Summary ---
Author Organization [facility] Address [address] [place] [address] Care Team Providers Care Ice Seller Name Role Phone Unavailable Primary Care Provider Unavailabl e Encounter Details Date Type Department Care Team (Late st Contact Info) Description 04/30/2024 Lab Requisition [facility] Pathology & Laboratory Medicine - [facility] [address] [place] [address] Jaz Kc, HOG WORKER [address] [place] [phone] Encounter for other general examination Social History [...]
--- OUTSIDE RECORDS SUMMARY | 2024-10-06 08:05 | XMS_ITS | Encounter Summary ---
Author Organization [facility] Address [address] [place] [address] Care Team Providers Care Agriculturist Name Role Phone Unavailable Primary Care Provider Unavailabl e Encounter Details Date Type Department Care Team (Late st Contact Info) Description 02/08/2024 Lab Requisition [facility] Pathology & Laboratory Medicine - [facility] [address] [place] [address] Outr Resulting Lab, Provider Social History Tobacco [...] Negative Negative 02/11/2024 13:40 EDT [facility] Comment:No interferon-gamma response to M. tuberculosis antigens was detected. ??Infection with M. tuberculosis is unlikely. A single negative result does not exclude infection with M. tuberculosis. ??In patients at high risk for M. tuberculosis infection, a second test should be considered. TB1 Ag minus Nil 0.00 IU/ml 02/11/20 13:40 EDT [facility] TB2 Ag minus Nil 0.00 IU/mL 02/11/20 13:40 EDT [facility] Blood VENOUS BLOOD / Unknown 02/07/2024 13:18 EDT 02/11/2024 13:39 EDT us Provider Outr Resulting Lab IMMUNOLOGY AND SEROL OGY ORDERABLES Final Result Performing Organization Address City/[facility]/ZIP Co de Phone Number [facility] [address] [place] [address] * QUANTIFERON MITOGEN (PERFORMABLE) (02/07/2024 13:18 EDT) Blood VENOUS BLOOD / Unknown 02/07/2024 13:18 EDT 02/08/2024 17:22 EDT us Provider Outr Resulting Lab IMMUNOLOGY AND SEROL OGY ORDERABLES Final Result Performing Organization Address City/[facility] Co de Phone Number [facility] [address] [place] [address] * QUANTIFERON TB2 (PERFORMABLE) (02/07/2024 13:18 EDT) Blood VENOUS BLOOD / Unknown 02/07/2024 13:18 EDT 02/08/2024 17:22 EDT us Provider Outr Resulting Lab IMMUNOLOGY AND SEROL OGY ORDERABLES Final Result Performing Organization Address City/[facility]/ZIP Co de Phone Number [facility] [address] [place] [address] * QUANTIFERON TB1 (PERFORMABLE) (02/07/2024 13:18 EDT) Blood VENOUS BLOOD / Unknown 02/07/2024 13:18 EDT 02/08/2024 17:22 EDT us Provider Outr Resulting Lab IMMUNOLOGY AND SEROL OGY ORDERABLES Final Result [facility] [address] [place] [address] * QUANTIFERON NIL (PERFORMABLE) (02/07/2024 13:18 EDT) Blood VENOUS BLOOD / Unknown 02/07/2024 13:18 EDT 02/08/2024 17:22 EDT us Provider Outr Resulting Lab IMMUNOLOGY AND SEROL OGY ORDERABLES Final Result Performing Organization Address City/[facility]/ZIP Co de Phone Number [facility] [address] [place] [address] documented in this encounter Visit Diagnoses Not on filedocumented in this encounter
--- OUTSIDE RECORDS SUMMARY | 2024-10-06 08:05 | XMS_ITS | Referral Summary ---
Author Organization [facility] Address [address] [place] [address] Care Team Providers Care Corrugator Machine Operator Name Role Phone Unavailable Primary [...] C Antibody Negative Negative 02/16/2024 9:25 EDT [facility] Blood VENOUS BLOOD / Unknown 02/15/2024 8:14 EDT 02/15/2024 17:02 EDT us Provider Outr Resulting Lab CHEMISTRY & BLOOD GA S ORDERABLES Final Result [facility] [address] [place] [address] from Last 3 Months or Most Recently Relevant to Health Maintenance
--- OUTSIDE RECORDS SUMMARY | 2024-10-06 08:05 | XMS_ITS | Encounter Summary ---
Author Organization [facility] Address [address] [place] [address] Care Team Providers Care Sifting Operator Name Role Phone Unavailable Primary Care Provider Unavailabl e Encounter Details Date Type Department Care Team (Late st Contact Info) Description 04/30/2024 Lab Requisition [facility] Pathology & Laboratory Medicine - [facility] [address] [place] [address] Jaz Kc, PREDATORY ANIMAL EXTERMINATOR [address] [place] [phone] Encounter for other general examination Social History [...] PCR Positive( A) Negative 05/06/2024 15:20 EDT [facility] Comment:E6 OR E7 mRNA from o ne or more types of HPV types 16,18,31,33,35,39,45,51,52,56,58,59,66, and 68 is detected by linux developer mediated amplification. High and intermediate risk HPV types are associated with most squamous intraepithelial lesions and cervical cancers. Pap Test CERVIX UTERI STRUCTURE / Unknown 04/29/2024 13:10 EDT 05/05/2024 13:24 EDT us Jaz Kc PREDATORY ANIMAL EXTERMINATOR MICROBIOLOGY - GENERAL OR DERABLES Final Result [facility] [address] [place] [address] * PAP TEST (04/29/2024 13:10 EDT) Specimens A. Cervix and/or Endocervix , ThinPrep Imaging System with Manual Evaluation 05/06/2024 15:20 T [facility] Specimen Adequacy Satisfactory for Evaluation - transformation zone component present 05/06/2024 15:20 EDT [facility] General Categorization Negative for intraepithelial lesion or malignancy 05/06/2024 15:20 EDT [facility] Descriptive Diagnosis 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 05/06/2024 15:20 T [facility] Attestation . 05/06/2024 15:20 T [facility] at 1520 Clinical History See below 05/06/20 15:20 T [facility] HPV The result for the Human Papillomavirus (HPV) Detection-High Risk Types is Positive . E6 OR E7 mRNA from one or more types of HPV types 16,18,31,33,35,39 ,45,51,52,56,58,5 9,66, and 68 is detected by linux developer mediated amplification. High and intermediate risk HPV types are associated with most squamous intraepithelial lesions and cervical cancers. Testing was performed on specimen [id number] and was resulted on 05/06/2024 1520 EDT by THANH, LAB INSTRUMENT RESULTS IN 05/06/2024 15:20 EDT [facility] Performing Lab [facility] 05/06/2024 15:20 T [facility] Scanned Images 05/06/2024 15:20 EDT [facility] Pap Test CERVIX UTERI STRUCTURE / Unknown 04/29/2024 13:10 EDT 04/30/2024 12:05 EDT us Jaz Kc PREDATORY ANIMAL EXTERMINATOR PATHOLOGY ORDERABLES Monique l Result [facility] [address] [place] [address] documented in this encounter Visit Diagnoses Diagnosis Encounter for other general examination documented in this encounter
--- OUTSIDE RECORDS SUMMARY | 2024-10-08 08:25 | XMS_ITS | Encounter Summary ---
Author Organization [facility] Address [address] [place] [address] Care Team Providers Care Zigzag Topstitcher Name Role Phone Unavailable Primary Care Provider Unavailabl e Encounter Details Date Type Department Care Team (Late st Contact Info) Description 04/30/2024 Lab Requisition [facility] Pathology & Laboratory Medicine - [facility] [address] [place] [address] Jaz Kc, CENTRIFUGAL SCREEN TENDER [address] [place] [phone] Encounter for other general examination Social History [...] PCR Positive( A) Negative 05/06/2024 15:20 EDT [facility] Comment:E6 OR E7 mRNA from o ne or more types of HPV types 16,18,31,33,35,39,45,51,52,56,58,59,66, and 68 is detected by pipeline maintenance supervisor mediated amplification. High and intermediate risk HPV types are associated with most squamous intraepithelial lesions and cervical cancers. Pap Test CERVIX UTERI STRUCTURE / Unknown 04/29/2024 13:10 EDT 05/05/2024 13:24 EDT us Jaz Kc CENTRIFUGAL SCREEN TENDER MICROBIOLOGY - GENERAL OR DERABLES Final Result [facility] [address] [place] [address] * PAP TEST (04/29/2024 13:10 EDT) Specimens A. Cervix and/or Endocervix , ThinPrep Imaging System with Manual Evaluation 05/06/2024 15:20 T [facility] Specimen Adequacy Satisfactory for Evaluation - transformation zone component present 05/06/2024 15:20 EDT [facility] General Categorization Negative for intraepithelial lesion or malignancy 05/06/2024 15:20 EDT [facility] Descriptive Diagnosis 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 05/06/2024 15:20 T [facility] Attestation . 05/06/2024 15:20 T [facility] at 1520 Clinical History See below 05/06/20 15:20 T [facility] HPV The result for the Human Papillomavirus (HPV) Detection-High Risk Types is Positive . E6 OR E7 mRNA from one or more types of HPV types 16,18,31,33,35,39 ,45,51,52,56,58,5 9,66, and 68 is detected by pipeline maintenance supervisor mediated amplification. High and intermediate risk HPV types are associated with most squamous intraepithelial lesions and cervical cancers. Testing was performed on specimen [id number] and was resulted on 05/06/2024 1520 EDT by THANH, LAB INSTRUMENT RESULTS IN 05/06/2024 15:20 EDT [facility] Performing Lab [facility] 05/06/2024 15:20 T [facility] Scanned Images 05/06/2024 15:20 EDT [facility] Pap Test CERVIX UTERI STRUCTURE / Unknown 04/29/2024 13:10 EDT 04/30/2024 12:05 EDT us Jaz Kc CENTRIFUGAL SCREEN TENDER PATHOLOGY ORDERABLES Monique l Result [facility] [address] [place] [address] documented in this encounter Visit Diagnoses Diagnosis Encounter for other general examination documented in this encounter
--- OUTSIDE RECORDS SUMMARY | 2024-10-08 08:25 | XMS_ITS | Encounter Summary ---
Author Organization [facility] Address [address] [place] [address] Care Team Providers Care Bottom Painter Name Role Phone Unavailable Primary Care Provider Unavailabl e Encounter Details Date Type Department Care Team (Late st Contact Info) Description 04/30/20[address] Lab Re[address] [facility] Pathology & Laboratory Medicine - [facility] [address] [place] [address] Jaz Kc, TIN PLATER [address] [place] [phone] Encounter for other general examination Social History [...]
--- OUTSIDE RECORDS SUMMARY | 2024-10-08 08:25 | XMS_ITS | Encounter Summary ---
Author Organization [facility] Address [address] [place] [address] Care Team Providers Care Ice Delivery Driver Name Role Phone Unavailable Primary Care Provider Unavailabl e Encounter Details Date Type Department Care Team (Late st Contact Info) Description 02/08/2024 Lab Requisition [facility] Pathology & Laboratory Medicine - [facility] [address] [place] [address] Outr Resulting Lab, Provider Social History Tobacco [...] Quantiferon Interpretation Negative Negative 02/11/2024 13:[address] [facility] Comment:No interferon-gamma response to M. tuberculosis antigens was detected. ??Infection with M. tuberculosis is unlikely. A single negative result does not exclude infection with M. tuberculosis. ??In patients at high risk for M. tuberculosis infection, a second test should be considered. TB1 Ag minus Nil 0.00 IU/ml 02/11/20 13:[address] [facility] TB2 Ag minus Nil 0.00 IU/mL 02/11/20 13:[address] [facility] Blood VENOUS BLOOD / Unknown 02/07/2024 13:18 EDT 02/11/2024 13:39 EDT us Provider Outr Resulting Lab IMMUNOLOGY AND SEROL OGY ORDERABLES Final Result Performing Organization Address City/[facility]/ZIP Co de Phone Number [facility] [address] [place] [address] * QUANTIFERON MITOGEN (PERFORMABLE) (02/07/2024 13:18 EDT) Blood VENOUS BLOOD / Unknown 02/07/2024 13:18 EDT 02/08/2024 17:22 EDT us Provider Outr Resulting Lab IMMUNOLOGY AND SEROL OGY ORDERABLES Final Result Performing Organization Address City/[facility] Co de Phone Number [facility] [address] [place] [address] * QUANTIFERON TB2 (PERFORMABLE) (02/07/2024 13:18 EDT) Blood VENOUS BLOOD / Unknown 02/07/2024 13:18 EDT 02/08/2024 17:22 EDT us Provider Outr Resulting Lab IMMUNOLOGY AND SEROL OGY ORDERABLES Final Result Performing Organization Address City/[facility]/ZIP Co de Phone Number [facility] [address] [place] [address] * QUANTIFERON TB1 (PERFORMABLE) (02/07/2024 13:18 EDT) Blood VENOUS BLOOD / Unknown 02/07/2024 13:18 EDT 02/08/2024 17:22 EDT us Provider Outr Resulting Lab IMMUNOLOGY AND SEROL OGY ORDERABLES Final Result [facility] [address] [place] [address] * QUANTIFERON NIL (PERFORMABLE) (02/07/2024 13:18 EDT) Blood VENOUS BLOOD / Unknown 02/07/2024 13:18 EDT 02/08/2024 17:22 EDT us Provider Outr Resulting Lab IMMUNOLOGY AND SEROL OGY ORDERABLES Final Result Performing Organization Address City/[facility]/ZIP Co de Phone Number [facility] [address] [place] [address] documented in this encounter Visit Diagnoses Not on filedocumented in this encounter
--- OUTSIDE RECORDS SUMMARY | 2024-10-08 08:25 | XMS_ITS | Clinical Summary ---
Author Organization [facility] Address [address] [place] [address] Care Team Providers Care Real Estate Office Manager Name Role Phone Unavailable Primary Care [...] Negative Negative 02/16/2024 9:25 EDT [facility] Blood VENOUS BLOOD / Unknown 02/15/2024 8:14 EDT 02/15/2024 17:02 EDT us Provider Outr Resulting Lab CHEMISTRY & BLOOD GA S ORDERABLES Final Result [facility] [address] [place] [address] from Last 3 Months or Most Recently Relevant to Health Maintenance
--- OUTSIDE RECORDS SUMMARY | 2024-10-08 08:25 | XMS_ITS | Encounter Summary ---
Author Organization [facility] Address [address] [place] [address] Care Team Providers Care Contract Negotiator Name Role Phone Unavailable Primary Care Provider Unavailabl e Encounter Details Date Type Department Care Team (Late st Contact Info) Description 02/15/2024 Lab Requisition [place] Pathology & Laboratory Medicine - [facility] [address] [place] [address] Outr Resulting Lab, Provider Social History Tobacco [...] Negative Negative 02/16/2024 9:25 EDT [facility] Blood VENOUS BLOOD / Unknown 02/15/2024 8:14 EDT 02/15/2024 17:02 EDT us Provider Outr Resulting Lab CHEMISTRY & BLOOD GA S ORDERABLES Final Result [facility] [address] [place] [address] * TRANSFERRIN (02/15/2024 8:14 EDT) Transferrin 322 201 - 352 mg/dL 02/18/2024 8:31 EDT [facility] Blood VENOUS BLOOD / Unknown 02/15/2024 8:14 EDT 02/15/2024 17:02 EDT us Provider Outr Resulting Lab CHEMISTRY & BLOOD GA S ORDERABLES Final Result [facility] [address] [place], [place] [id number] documented in this encounter Visit Diagnoses Not on filedocumented in this encounter
--- OUTSIDE RECORDS SUMMARY | 2024-10-08 08:25 | XMS_ITS | Referral Summary ---
Author Organization [facility] Address [address] [place] [address] Care Team Providers Care Electrical Assembly Technician Name Role Phone Unavailable Primary Care [...] C Antibody Negative Negative 02/16/2024 9:25 EDT [facility] Blood VENOUS BLOOD / Unknown 02/15/2024 8:14 EDT 02/15/2024 17:02 EDT us Provider Outr Resulting Lab CHEMISTRY & BLOOD GA S ORDERABLES Final Result [facility] [address] [place] [address] from Last 3 Months or Most Recently Relevant to Health Maintenance
== END 2024-10-11 23:59 | disposition home or self-care (01) ==
LOC: CR 08:23
PROVIDERS: PCP Nurse Practitioner Family; Visit Provider Internal Medicine Cardiovascular Disease
DX: I11.0 Hypertensive heart disease with heart failure (principal); Z51.89 Encounter for other specified aftercare
CPT/HCPCS: S9472

== ENCOUNTER 2024-10-13 08:18 | Outpatient (RCR) | payer OTHER, SELFPAY ==
--- OUTSIDE RECORDS SUMMARY | 2024-10-13 08:19 | XMS_ITS | Encounter Summary ---
Author Organization [facility] Address [address] [place] [address] Care Team Providers Care Feed Crusher Name Role Phone Unavailable Primary Care Provider Unavailabl e Encounter Details Date Type Department Care Team (Late st Contact Info) Description 02/15/2024 Lab Requisition [facility] Pathology & Laboratory Medicine - [facility] [address] [place] [address] Outr Resulting Lab, Provider Social History Tobacco [...] C Antibody Negative Negative 02/16/2024 9:25 EDT [facility] Blood VENOUS BLOOD / Unknown 02/15/2024 8:14 EDT 02/15/2024 17:02 EDT us Provider Outr Resulting Lab CHEMISTRY & BLOOD GA S ORDERABLES Final Result [facility] [address] [place] [address] * TRANSFERRIN (02/15/2024 8:14 EDT) Transferrin 322 201 - 352 mg/dL 02/18/2024 8:31 EDT [facility] Blood VENOUS BLOOD / Unknown 02/15/2024 8:14 EDT 02/15/2024 17:02 EDT us Provider Outr Resulting Lab CHEMISTRY & BLOOD GA S ORDERABLES Final Result [facility] [address] [place], [place] [id number] documented in this encounter Visit Diagnoses Not on filedocumented in this encounter
--- OUTSIDE RECORDS SUMMARY | 2024-10-13 08:19 | XMS_ITS | Referral Summary ---
Author Organization [facility] Address [address] [place] [address] Care Team Providers Care Delinquent Tax Collector Name Role Phone Unavailable Primary Care Provider [...] Antibody Negative Negative 02/16/2024 9:25 EDT [facility] Blood VENOUS BLOOD / Unknown 02/15/2024 8:14 EDT 02/15/2024 17:02 EDT us Provider Outr Resulting Lab CHEMISTRY & BLOOD GA S ORDERABLES Final Result [facility] [address] [place] [address] from Last 3 Months or Most Recently Relevant to Health Maintenance
--- OUTSIDE RECORDS SUMMARY | 2024-10-13 08:19 | XMS_ITS | Encounter Summary ---
Author Organization [facility] Address [address] [place] [address] Care Team Providers Care Associate Pastor Name Role Phone Unavailable Primary Care Provider Unavailabl e Encounter Details Date Type Department Care Team (Late st Contact Info) Description 02/08/2024 Lab Requisition [facility] Pathology & Laboratory Medicine - [facility] [address] [place] [address] Outr Resulting Lab, Provider Social History Tobacco [...] Quantiferon Interpretation Negative Negative 02/11/2024 13:40 EDT [facility] Comment:No interferon-gamma response to M. tuberculosis antigens was detected. ??Infection with M. tuberculosis is unlikely. A single negative result does not exclude infection with M. tuberculosis. ??In patients at high risk for M. tuberculosis infection, a second test should be considered. TB1 Ag minus Nil 0.00 IU/ml 02/11/20 13:40 EDT [facility] TB2 Ag minus Nil 0.00 IU/mL 02/11/20 13:40 EDT [facility] Blood VENOUS BLOOD / Unknown 02/07/2024 13:18 EDT 02/11/2024 13:39 EDT us Provider Outr Resulting Lab IMMUNOLOGY AND SEROL OGY ORDERABLES Final Result Performing Organization Address City/[facility]/ZIP Co de Phone Number [facility] [address] [place] [address] * QUANTIFERON MITOGEN (PERFORMABLE) (02/07/2024 13:18 EDT) Blood VENOUS BLOOD / Unknown 02/07/2024 13:18 EDT 02/08/2024 17:22 EDT us Provider Outr Resulting Lab IMMUNOLOGY AND SEROL OGY ORDERABLES Final Result Performing Organization Address City/[facility] Co de Phone Number [facility] [address] [place] [address] * QUANTIFERON TB2 (PERFORMABLE) (02/07/2024 13:18 EDT) Blood VENOUS BLOOD / Unknown 02/07/2024 13:18 EDT 02/08/2024 17:22 EDT us Provider Outr Resulting Lab IMMUNOLOGY AND SEROL OGY ORDERABLES Final Result Performing Organization Address City/[facility]/ZIP Co de Phone Number [facility] [address] [place] [address] * QUANTIFERON TB1 (PERFORMABLE) (02/07/2024 13:18 EDT) Blood VENOUS BLOOD / Unknown 02/07/2024 13:18 EDT 02/08/2024 17:22 EDT us Provider Outr Resulting Lab IMMUNOLOGY AND SEROL OGY ORDERABLES Final Result [facility] [address] [place] [address] * QUANTIFERON NIL (PERFORMABLE) (02/07/2024 13:18 EDT) Blood VENOUS BLOOD / Unknown 02/07/2024 13:18 EDT 02/08/2024 17:22 EDT us Provider Outr Resulting Lab IMMUNOLOGY AND SEROL OGY ORDERABLES Final Result Performing Organization Address City/[facility]/ZIP Co de Phone Number [facility] [address] [place] [address] documented in this encounter Visit Diagnoses Not on filedocumented in this encounter
--- OUTSIDE RECORDS SUMMARY | 2024-10-13 08:19 | XMS_ITS | Encounter Summary ---
Author Organization [facility] Address [address] [place] [address] Care Team Providers Care Transportation Services Representative Name Role Phone Unavailable Primary Care Provider Unavailabl e Encounter Details Date Type Department Care Team (Late st Contact Info) Description 04/30/2024 Lab Requisition [facility] [place] Pathology & Laboratory Medicine - [facility] [address] [place] [address] Jaz Kc, HOUSE SHORER [address] [place] [phone] Encounter for other general examination Social History [...] PCR Positive( A) Negative 05/06/2024 15:20 EDT [facility] Comment:E6 OR E7 mRNA from o ne or more types of HPV types 16,18,31,33,35,39,45,51,52,56,58,59,66, and 68 is detected by steel construction worker mediated amplification. High and intermediate risk HPV types are associated with most squamous intraepithelial lesions and cervical cancers. Pap Test CERVIX UTERI STRUCTURE / Unknown 04/29/2024 13:10 EDT 05/05/2024 13:24 EDT us Jaz Kc HOUSE SHORER MICROBIOLOGY - GENERAL OR DERABLES Final Result [facility] [address] [place] [id number] * PAP TEST (04/29/2024 13:10 EDT) Specimens A. Cervix and/or Endocervix , ThinPrep Imaging System with Manual Evaluation 05/06/2024 15:20 T [facility] Specimen Adequacy Satisfactory for Evaluation - transformation zone component present 05/06/2024 15:20 EDT [facility] General Categorization Negative for intraepithelial lesion or malignancy 05/06/2024 15:20 EDT [facility] Descriptive Diagnosis 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 05/06/2024 15:20 T [facility] Attestation . 05/06/2024 15:20 T [facility] at 1520 Clinical History See below 05/06/20 15:20 T [facility] HPV The result for the Human Papillomavirus (HPV) Detection-High Risk Types is Positive . E6 OR E7 mRNA from one or more types of HPV types 16,18,31,33,35,39 ,45,51,52,56,58,5 9,66, and 68 is detected by steel construction worker mediated amplification. High and intermediate risk HPV types are associated with most squamous intraepithelial lesions and cervical cancers. Testing was performed on specimen [id number] and was resulted on 05/06/2024 1520 EDT by THANH, LAB INSTRUMENT RESULTS IN 05/06/2024 15:20 EDT [facility] Performing Lab [facility] 05/06/2024 15:20 T [facility] Scanned Images 05/06/2024 15:20 EDT [facility] Pap Test CERVIX UTERI STRUCTURE / Unknown 04/29/2024 13:10 EDT 04/30/2024 12:05 EDT us Jaz Kc HOUSE SHORER PATHOLOGY ORDERABLES Monique l Result [facility] [address] [place] [address] documented in this encounter Visit Diagnoses Diagnosis Encounter for other general examination documented in this encounter
--- OUTSIDE RECORDS SUMMARY | 2024-10-13 08:19 | XMS_ITS | Clinical Summary ---
Author Organization [facility] Address [address] [place] [address] Care Team Providers Care Race Board Attendant Name Role Phone Unavailable Primary Care [...] C Antibody Negative Negative 02/16/2024 9:25 EDT [facility] Blood VENOUS BLOOD / Unknown 02/15/2024 8:14 EDT 02/15/2024 17:02 EDT us Provider Outr Resulting Lab CHEMISTRY & BLOOD GA S ORDERABLES Final Result [facility] [address] [place] [address] from Last 3 Months or Most Recently Relevant to Health Maintenance
--- OUTSIDE RECORDS SUMMARY | 2024-10-13 08:19 | XMS_ITS | Encounter Summary ---
Author Organization [facility] Address [address] [place] [address] Care Team Providers Care Weed Burner Name Role Phone Unavailable Primary Care Provider Unavailabl e Encounter Details Date Type Department Care Team (Late st Contact Info) Description 04/30/2024 Lab Requisition [facility] Pathology & Laboratory Medicine - [facility] [address] [place] [address] Jaz Kc, PHOTO FINISHER [address] [place] [phone] Encounter for other general examination Social History [...]
== END 2024-11-11 23:59 | disposition home or self-care (01) ==
LOC: CR 08:18
PROVIDERS: PCP Nurse Practitioner Family; Visit Provider Internal Medicine Cardiovascular Disease
DX: I50.20 Unspecified systolic (congestive) heart failure (principal); Z51.89 Encounter for other specified aftercare
CPT/HCPCS: S9472

== ENCOUNTER 2024-12-17 06:58 | Outpatient (CLI) | payer OTHER, SELFPAY ==
--- NOTE | 2024-12-17 06:45 | RT.EKG_ITS ---
APPROVED REPORT Exam: Resting ECG Reason for Exam: per Cardiology Patient Location: O HR:70 bpm ECG Measurements Heart Rate 70 AXIS DE 183 P 32 QRSd 101 QRS -14 QT 408 T -33 QTc 441 Conclusion Sinus rhythm...normal P axis, V-rate 50- 99 Probable left atrial enlargement...P >50mS, <-0.10mV V1 Left ventricular hypertrophy...multiple LVH criteria Nonspecific T abnormalities, inferior leads...T <-0.10mV, II III aVF
== END 2024-12-17 06:59 | disposition home or self-care (01) ==
LOC: DI.CM 06:59
PROVIDERS: PCP Nurse Practitioner Family; Visit Provider Nurse Practitioner Family
DX: I42.8 Other cardiomyopathies (principal); I50.20 Unspecified systolic (congestive) heart failure
CPT/HCPCS: 93010

== ENCOUNTER 2025-07-29 02:08 | Outpatient (CLI) | payer BC, SELFPAY ==
--- NOTE | 2025-07-29 06:48 | DI.MAMMO_ITS ---
Exam(s) MAMMO SCREENING EXAM: MAMMO SCREENING CLINICAL HISTORY: screening,Z12.39. TECHNIQUE: Bilateral full field digital CC and MLO mammographic images were obtained with 3D tomosynthesis and utilizing computer aided detection (CAD). COMPARISON: Prior mammograms were reviewed. FINDINGS: There has been no significant change in the appearance and distribution of the fibroglandular tissue. Biopsy marker clip in the upper quadrant of the left breast is again noted. There is some nearby benign-appearing small nodules which appears similar to previous. There also a stable benign-appearing nodule right breast. There are no new spiculated masses nor new malignant appearing microcalcification groups. There is no significant architectural distortion nor skin thickening-retraction. IMPRESSION: No radiographic evidence of malignancy. Benign-appearing findings. BI-RADS Category 2 - Benign Findings Breast Density - Category B - There are scattered areas of fibroglandular density. Breast density Category C or D implies that the patient has dense breast tissue. Dense breast tissue can make it harder to find cancer on a mammogram. Dense breast tissue is also associated with an increased risk of breast cancer. This information about the result of the mammogram report was provided to the patient to raise their awareness. Use this report when you speak with the patient about their risks for breast cancer, which includes their family history. At that time, you may recommend additional screening tests (Ultrasound or MRI) as these tests may add significant information. A negative radiographic report should not delay biopsy if a dominant or clinically suspicious mass is present. Up to ten percent of cancers are not identified on mammography. A negative report may reinforce clinical impression. Adenosis and dense breasts may obscure an underlying neoplasm. False positive reports average 6 to 10%. Patient will receive a letter notifying them of these results.
== END 2025-07-29 02:28 ==
PROVIDERS: PCP Nurse Practitioner Family; Visit Provider Nurse Practitioner Family
DX: Z12.31 Encounter for screening mammogram for malignant neoplasm of breast (principal); I50.20 Unspecified systolic (congestive) heart failure; E28.2 Polycystic ovarian syndrome; D35.2 Benign neoplasm of pituitary gland; I10 Essential (primary) hypertension; D50.9 Iron deficiency anemia, unspecified
CPT/HCPCS: 77063; 77067